=== PATIENT | female | born 1955 | race African-American/Black ===

== ENCOUNTER 2016-11-20 15:46 | Inpatient (IN) | payer MEDICARE, MEDICAID ==
[~2016-11-20] VITALS: Ht 157.5 cm; Wt 110.6 kg
--- NOTE | ~2016-11-20 | DS ---
PATIENT'S NAME: FRANCISCO JAVIER BUTLER [facility] AGE: 61 Y [address] ROOM: [id number] [place], [place] [address] LOCATION: GPCU ADMIT DATE: 11/07/2016 Discharge Summary DISCHARGE DATE: 11/20/2016 FAMILY PHYSICIAN: Physician, Unknown ATTENDING PHYSICIAN: Ivy Timmons PRIMARY DIAGNOSES: 1. Metabolic encephalopathy. 2. Acute kidney injury on chronic kidney disease, stage III. 3. Aggressive behavior disorder. 4. Diabetes type 2. 5. Coronary artery disease, status post CABG, on prior admission. 6. Left lower extremity swelling. 7. Acute hypoxic respiratory failure. 8. Urinary tract infection. 9. Essential hypertension. PRINCIPAL PROCEDURES: Principal procedures done for the patient include placement of a temporary dialysis catheter x2, right renal biopsy by Radiology, and temporary dialysis catheter placement by Dr. Garza. LABORATORY DATA: WBC on admission was 12.1, prior to discharge was 7.9. H and H on admission was 7.6/24.6, H and H were stable throughout the hospital stay, prior to discharge were 7.8/25.6. Platelet on admission was 449, was stable throughout the hospital stay, prior to discharge was 294. Creatinine on admission was 7.1, prior to discharge was back at baseline at 1.1. BUN on admission was 44, which was the highest level obtained, prior to discharge was 16. Potassium on admission was 4.9, highest level obtained was 5.4, prior to discharge was 4.4. Bicarb remained stable throughout the hospital stay at 24. Liver function test: AST was 37 on admission and was stable throughout the hospital stay. ALT was 31 on admission, was also stable throughout the hospital stay. Alkaline phosphatase was 75, was stable throughout the hospital stay as well. Phosphorus was 6.4. Magnesium was 3.1. INR on admission was 2.6, prior to discharge was 1.2. UA; color yellow, leukocytes 500, nitrite negative, wbc full field. CRP was 5.35. Procalcitonin 0.09. Hepatitis B surface antigen negative, nonreactive. Antibody to hepatitis C, nonreactive. Microbiology; urine culture showed Klebsiella pneumoniae greater than 100,000, enterococcus faecalis 10,000 to 15,000 colony-forming unit, lactobacillus greater than 100,000. Blood cultures no growth after 5 days. Repeat urine culture no growth after 2 days. Blood culture remained negative x2 sets. Antinuclear antibody test negative. Repeat urine culture was contaminant. RADIOLOGY: Chest x-ray reported as cardiac silhouette remains enlarged. Perihilar interstitial opacities may represent some interstitial edema versus PATIENT'S NAME: FRANCISCO JAVIER [facility]LER [facility] AGE: 61 Y [address] ROOM: [facility] [place], [place] [address] LOCATION: GPCU ADMIT DATE: 11/07/2016 Discharge Summary DISCHARGE DATE: 11/20/2016 FAMILY PHYSICIAN: Physician, Unknown ATTENDING PHYSICIAN: Ivy Timmons A infiltrate. No discrete focal infiltrate, pleural effusion, or pneumothorax identified. Renal ultrasound, unremarkable bilateral renal ultrasound. Multiple chest x-rays following temporary catheter placement, there has been some interval improvement in perihilar interstitial markings, which may represent resolving interstitial edema versus infiltrate. Right-sided Port-A- Cath device is stable. CT of the head showed no evidence of acute intracranial injury, suspected chronic left maxillary sinus. Repeat chest x- ray showed cardiac silhouette remains enlarged, mildly prominent perihilar interstitial markings are present, this is improved in appearance since the prior study. CT-guided core needle biopsy of the right kidney performed. Three-view x-ray of the left ankle showed soft tissue swelling without apparent fracture. CT of the chest and abdomen without contrast, reported as bilateral pleural effusion, moderate on the left and small on the right, otherwise essentially negative chest except for some minimal streaky scarring; bilateral perinephric edema, this could relate to chronic acute renal failure; no hydronephrosis; otherwise negative abdomen and pelvis. Repeat 3-view x-ray of the ankle showed diffuse soft tissue swelling, normal bony alignment, no fracture seen, no destructive lesion. Chest x-ray showed stable cardiomegaly. Ultrasound of the right cubital swelling, the internal jugular, subclavian, axillary, brachial, radial, and ulnar veins are well, as well as the basilic and cephalic veins have been examined. No evidence of DVT or superficial thrombophlebitis in the right upper extremity. No evidence of mass at the area of palpation, right medial antecubital foci, only normal muscle seen in this region. Duplex scan of the lower extremity showed no evidence of DVT or superficial thrombophlebitis in the left lower extremity, common femoral vein graft visualized. Echocardiogram showed ejection fraction 55% to 60%, the right atrium is moderately dilated, dilated IVC with poor inspiratory collapse consistent with elevated RA pressure, PA pressure of 57.77 mmHg, moderate posterior pericardial effusion. Pathology report is reported as adequate glomeruli present by pre-fixation microscopy, tissue obtained for outside consultation at [facility]. HOSPITAL COURSE: For history of present illness, please take a look at the H and P, which was done by Dr. Luther. The patient was admitted to Progressive Care Unit. She was managed for acute kidney injury on chronic kidney disease also with encephalopathy, which was thought to be metabolic in origin, was thought to be secondary to possibly benzos which the patient was on. The patient did get a Renal consult from the first day of the hospital stay and they recommended to continue with hydration and to see how the kidney would respond. The patient did get a renal ultrasound, which was essentially unremarkable. However, on the first day of her hospital stay, the patient was pretty confused; combative; aggressive at the staff; and at one point she tried to walk out of her room, confused, and still fell on the floor; and also combative and so Julien Perez was called. At this point, she was made calm a PATIENT'S NAME: FRANCISCO JAVIER [facility] AGE: 61 Y [address] ROOM: [id number] [place] [address] LOCATION: GPCU ADMIT DATE: 11/07/2016 Discharge Summary DISCHARGE DATE: 11/20/2016 FAMILY PHYSICIAN: Physician, Unknown ATTENDING PHYSICIAN: Ivy Timmons A little bit with Haldol p.r.n. and she was able to remain calm following this. Given her aggressiveness and the severity of her confusion, she did eventually get hemodialysis done on the first day. On the second day, her mentation was essentially unchanged, still confused, combative, aggressive, refusing treatment, wanting to be discharged; and again while she was in hemodialysis, she pulled out her temporary dialysis catheter, which was placed a day prior and Julien Perez again was called. There was a caution to give further Haldol to calm her down as a QTc was beginning to be prolonged. At this point, the Psychiatric consult was called and they recommended to try some Ativan and also to try some Abilify p.o. However, the patient was too combative, confused, and too aggressive and was not tolerating anything by mouth. Eventually, she did get a low dose of Haldol, which kept her calm, and also got some Versed for her temporary catheter to be replaced. At this point, she continued with her dialysis. However, following the completion of the dialysis and when she returned back to the floor, she continued to be combative, aggressive, and refusing treatment. Despite being in 2-point restraint, was pulling at all lines, trying to pull out leads of her monitor. At this point, it was felt that the patient needed to be sedated better and so she was transferred to the ICU to be started on Precedex drip, so she was maintained in the ICU for 48 hours on Precedex drips. By the second day, she became calm, more oriented, and slowly the Precedex drip was weaned off and she was successfully transferred out of the ICU back to PCU. During this whole time, Renal Team continued to follow up with the patient and she continued to have p.r.n. dialysis and they paid close attention to her kidney function. Eventually, her last dialysis was held on November 12 and following this, she did also get a right renal kidney biopsy done. Also of note is that on admission, she was treated for multi-organism urinary tract infection with klebsiella UTI with Fortaz, which she had for a total of about 5 days. Now, basically her mentation has returned to baseline. She was able to follow command and was accepting treatment that has been offered to her. After her kidney function had returned back to baseline, Renal decided to sign off. She started to ambulate and while in PCU, she did complain of some left ankle pain, for which Dr. Robertson was consulted. After reviewing the patient, he did order 3-view x-ray of the left lower extremity. It did not show any fracture. He did also get a repeat lower extremity duplex scan, which was negative for DVT and he had no concern for a fracture or for an infection, though the patient still did continue to complain of left ankle swelling and also left ankle edema and pain. He recommended for the patient to be on Cam boots when she ambulates and ice and also elevation of the left lower extremity and for left knee knee-high JET hose to be put on as well. Eventually, the patient was restarted back on her Coumadin, was bridged with low dose of subcu heparin. Dr. Zelaya also continued to follow up with the patient given the fact the patient had recently just had a CABG, so he continued to follow up as regarding the sternotomy wound, which was still clean and intact. The patient's mentation had returned to baseline. Her PATIENT'S NAME: FRANCISCO JAVIER [facility] AGE: 61 Y [address] ROOM: [id number] [place], [place] [address] LOCATION: GPCU ADMIT DATE: 11/07/2016 Discharge Summary DISCHARGE DATE: 11/20/2016 FAMILY PHYSICIAN: Physician, Karen ATTENDING PHYSICIAN: Ivy Timmons kidney function as well had returned to baseline. Blood pressure was controlled and eventually given her psychiatric disorder, she did have to have some clearance before she was eventually accepted into TCU. She was also seen by the psychiatrist as well given the combative behavior and they recommended to avoid all benzos. They stopped the Abilify and started the patient on some Risperdal and to also avoid the Viibryd. Eventually, on the day of discharge, the patient was in stable clinical condition, her mentation was at baseline, kidney function was stable, and she was discharged to TCU. DISCHARGE INSTRUCTIONS: Fluid restriction of about 2 L per day. Ice plus elevation of the left lower extremity. Left knee high JET hose. Cam boots when ambulating. MEDICATIONS ON DISCHARGE: 1. Amiodarone 200 mg p.o. twice daily. 2. Norvasc 10 mg p.o. daily. 3. Aspirin 81 mg p.o. daily. 4. Lipitor 10 mg p.o. daily. 5. Wellbutrin XL 150 mg p.o. daily. 6. Coreg 25 mg p.o. twice daily. 7. Colace 100 mg p.o. twice daily. 8. Pepcid 20 mg p.o. twice daily. 9. NovoLog FlexPen 6 units subcutaneous 3 times daily with meals. 10. Levemir 20 units subcu daily. 11. Labetalol, new medication, 100 mg p.o. twice daily. 12. MiraLax 17 grams p.o. daily. 13. Risperdal 1 mg p.o. twice daily. 14. Coumadin 7.5 mg p.o. daily. 15. Dulcolax 10 mg rectally daily p.r.n. 16. Dextrose 25 mL 1 amp for hypoglycemia. 17. Glucagon. 18. Humibid 600 mg p.o. twice daily p.r.n. 19. Milk of magnesia 400 mg p.o. daily p.r.n. 20. Phenergan 25 mg p.o. q.4 hours p.r.n. 21. Albuterol nebs every 6 hours p.r.n. 22. Zanaflex 4 mg p.o. twice daily p.r.n. 23. Regarding restarting of Aldactone and Benicar, I did discuss with Alesha Mireles NP who will touch base with Dr. Timmons and Dr. Zelaya. Discharge time on this patient is approximately 40 minutes, which included coordinating the patient's discharge plan with skin care specialist. PATIENT'S NAME: FRANCISCO JAVIER [facility] AGE: 61 Y [address] ROOM: [place] [address] LOCATION: [facility] ADMIT DATE: 11/07/2016 Discharge Summary DISCHARGE DATE: 11/20/2016 FAMILY PHYSICIAN: Physician, Unknown ATTENDING PHYSICIAN: Ivy Timmons MD SEKOU ANDERSON/jonah /[id number] d: 11/21/16 0151 t: 12/10/16 1300, DISCHARGE SUMMARY
--- NOTE | ~2016-11-20 | DS ---
PATIENT'S NAME: FRANCISCO JAVIER BUTLER [facility] AGE: 61 Y [address] ROOM: [address] [place] [address] LOCATION: [facility] ADMIT DATE: 11/20/2016 Discharge Summary DISCHARGE DATE: FAMILY PHYSICIAN: Physician, Unknown ATTENDING PHYSICIAN: Shanna Martinez ANTICIPATED DATE OF DISCHARGE: 12/09/2016. PRIMARY DIAGNOSES: At this hospitalization are, 1. Status post coronary artery bypass graft. 2. Status post acute kidney injury requiring dialysis, now resolved. 3. Insulin-dependent diabetes. 4. Recurrent deep vein thromboses, on long-term anticoagulation. 5. Coronary artery disease. 6. Hypertension. 7. Aggressive behavior disorder. 8. Questionable C8 neuropathy versus conversion disorder. 9. Deconditioning. 10. Clostridium difficile colitis. SUMMARY OF HOSPITALIZATION: This is a 61-year-old female with multiple medical problems as above, who was admitted to the transitional care unit for recuperation subsequent to complex hospitalization. During that hospitalization, the patient has undergone a coronary artery bypass graft with subsequent metabolic encephalopathy as well as acute kidney injury requiring dialysis. All of these resolved, and the patient was being treated on the transitional care unit. The patient received physical therapy and gradually improved. She was able to ambulate with minimal assistance. She was continued on Coumadin while on the transitional care unit. She did develop an episode of C. diff, which was treated with oral vancomycin and at this point has resolved. The patient did have an episode where she developed a complete paralysis of left upper extremity in the course of the night. She was evaluated and it was felt that this was not consistent with a CVA. CAT scan of her head was negative. She was seen by Neurology who felt that this may indeed be a C8 brachial plexopathy related to recent CABG. However, the patient does have quite an extensive psychiatric history, so the presentation could have been conversion disorder. This weakness/paralysis did resolve completely. The patient did have considerable opioid requirement, and we had to explain to her that she is in danger for developing opioid dependence. At this point, she is still receiving regular doses of oral Dilaudid 2 mg approximately 3 to 4 times a day. In order to help her taper this opioid dose, I will decrease her PATIENT'S NAME: FRANCISCO JAVIER BUTLER [facility] AGE: 61 Y [address] ROOM: [address] [address] LOCATION: [facility] ADMIT DATE: 11/20/2016 Discharge Summary DISCHARGE DATE: FAMILY PHYSICIAN: Physician, Unknown ATTENDING PHYSICIAN: Shanna Martinez discharge home regimen to 1 mg every 4 hours as needed. We will defer to the PMD to further titrate her off opioids. The patient is advised to follow up with her primary care provider, Dr. Norris in [place]. She is also to follow up with Dr. Roberts, her primary cart driver in 1 to 2 weeks. DISCHARGE MEDICATIONS: 1. Amiodarone 200 mg p.o. twice a day. 2. Amlodipine 10 mg daily. 3. Aspirin 81 mg daily. 4. Atorvastatin 10 mg daily. 5. Bupropion 150 mg XL daily. 6. Carvedilol 25 mg p.o. b.i.d. 7. Chlorthalidone 12.5 mg daily. 8. Famotidine 20 mg every day. 9. NovoLog 6 units before meals. 10. Detemir 20 units at bedtime. 11. Labetalol 100 mg b.i.d. 12. Lisinopril 2.5 mg daily. 13. Risperdal 1 mg p.o. b.i.d. 14. Florastor 1 tablet p.o. b.i.d. 15. Warfarin to be dosed by home health. 16. Dulcolax suppository 10 mg every day as needed. 17. Dilaudid 1 mg every 4 hours as needed, not to exceed 4 pills a day. 18. Promethazine 25 mg every 4 hours as needed. 19. Zanaflex 4 mg twice daily as needed. 20. Albuterol DuoNeb 2.5 mg every 6 hours as needed. The patient is being set up with home health. Time dedicated to this patient's encounter is 45 minutes. MD NARCISO KENNEY/jonah /[id number] CC: Melissa Roberts MD PATIENT'S NAME: FRANCISCO JAVIER [facility]LER [facility] AGE: 61 Y [address] ROOM: [address] [address] LOCATION: [facility] ADMIT DATE: 11/20/2016 Discharge Summary DISCHARGE DATE: FAMILY PHYSICIAN: Physician, Unknown ATTENDING PHYSICIAN: Shanna Martinez MD d: 12/09/16 0448 t: 12/14/16 1234, DISCHARGE SUMMARY
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
--- NOTE | ~2016-11-20 | DS ---
PATIENT'S NAME: FRANCISCO JAVIER [facility] AGE: 61 Y [address] ROOM: [id number] [place], [place] [address] LOCATION: GPCU ADMIT DATE: 11/07/2016 Discharge Summary DISCHARGE DATE: 11/20/2016 FAMILY PHYSICIAN: Physician, Unknown ATTENDING PHYSICIAN: Ivy Timmons PRIMARY DIAGNOSES: 1. Metabolic encephalopathy. 2. Acute kidney injury on chronic kidney disease, stage III. 3. Aggressive behavior disorder. 4. Diabetes type 2. 5. Coronary artery disease, status post CABG, on prior admission. 6. Left lower extremity swelling. 7. Acute hypoxic respiratory failure. 8. Urinary tract infection. 9. Essential hypertension. PRINCIPAL PROCEDURES: Principal procedures done for the patient include placement of a temporary dialysis catheter x2, right renal biopsy by Radiology, and temporary dialysis catheter placement by Dr. Garza. LABORATORY DATA: WBC on admission was 12.1, prior to discharge was 7.9. H and H on admission was 7.6/24.6, H and H were stable throughout the hospital stay, prior to discharge were 7.8/25.6. Platelet on admission was 449, was stable throughout the hospital stay, prior to discharge was 294. Creatinine on admission was 7.1, prior to discharge was back at baseline at 1.1. BUN on admission was 44, which was the highest level obtained, prior to discharge was 16. Potassium on admission was 4.9, highest level obtained was 5.4, prior to discharge was 4.4. Bicarb remained stable throughout the hospital stay at 24. Liver function test: AST was 37 on admission and was stable throughout the hospital stay. ALT was 31 on admission, was also stable throughout the hospital stay. Alkaline phosphatase was 75, was stable throughout the hospital stay as well. Phosphorus was 6.4. Magnesium was 3.1. INR on admission was 2.6, prior to discharge was 1.2. UA; color yellow, leukocytes 500, nitrite negative, wbc full field. CRP was 5.35. Procalcitonin 0.09. Hepatitis B surface antigen negative, nonreactive. Antibody to hepatitis C, nonreactive. Microbiology; urine culture showed Klebsiella pneumoniae greater than 100,000, enterococcus faecalis 10,000 to 15,000 colony-forming unit, lactobacillus greater than 100,000. Blood cultures no growth after 5 days. Repeat urine culture no growth after 2 days. Blood culture remained negative x2 sets. Antinuclear antibody test negative. Repeat urine culture was contaminant. RADIOLOGY: Chest x-ray reported as cardiac silhouette remains enlarged. Perihilar interstitial opacities may represent some interstitial edema versus PATIENT'S NAME: FRANCISCO JAVIER [facility] AGE: 61 Y [address] ROOM: [facility] [place] [place], [place] [address] LOCATION: GPCU ADMIT DATE: 11/07/2016 Discharge Summary DISCHARGE DATE: 11/20/2016 FAMILY PHYSICIAN: Physician, Unknown ATTENDING PHYSICIAN: Ivy Timmons A infiltrate. No discrete focal infiltrate, pleural effusion, or pneumothorax identified. Renal ultrasound, unremarkable bilateral renal ultrasound. Multiple chest x-rays following temporary catheter placement, there has been some interval improvement in perihilar interstitial markings, which may represent resolving interstitial edema versus infiltrate. Right-sided Port-A- Cath device is stable. CT of the head showed no evidence of acute intracranial injury, suspected chronic left maxillary sinus. Repeat chest x- ray showed cardiac silhouette remains enlarged, mildly prominent perihilar interstitial markings are present, this is improved in appearance since the prior study. CT-guided core needle biopsy of the right kidney performed. Three-view x-ray of the left ankle showed soft tissue swelling without apparent fracture. CT of the chest and abdomen without contrast, reported as bilateral pleural effusion, moderate on the left and small on the right, otherwise essentially negative chest except for some minimal streaky scarring; bilateral perinephric edema, this could relate to chronic acute renal failure; no hydronephrosis; otherwise negative abdomen and pelvis. Repeat 3-view x-ray of the ankle showed diffuse soft tissue swelling, normal bony alignment, no fracture seen, no destructive lesion. Chest x-ray showed stable cardiomegaly. Ultrasound of the right cubital swelling, the internal jugular, subclavian, axillary, brachial, radial, and ulnar veins are well, as well as the basilic and cephalic veins have been examined. No evidence of DVT or superficial thrombophlebitis in the right upper extremity. No evidence of mass at the area of palpation, right medial antecubital foci, only normal muscle seen in this region. Duplex scan of the lower extremity showed no evidence of DVT or superficial thrombophlebitis in the left lower extremity, common femoral vein graft visualized. Echocardiogram showed ejection fraction 55% to 60%, the right atrium is moderately dilated, dilated IVC with poor inspiratory collapse consistent with elevated RA pressure, PA pressure of 57.77 mmHg, moderate posterior pericardial effusion. Pathology report is reported as adequate glomeruli present by pre-fixation microscopy, tissue obtained for outside consultation at [facility]. HOSPITAL COURSE: For history of present illness, please take a look at the H and P, which was done by Dr. Luther. The patient was admitted to Progressive Care Unit. She was managed for acute kidney injury on chronic kidney disease also with encephalopathy, which was thought to be metabolic in origin, was thought to be secondary to possibly benzos which the patient was on. The patient did get a Renal consult from the first day of the hospital stay and they recommended to continue with hydration and to see how the kidney would respond. The patient did get a renal ultrasound, which was essentially unremarkable. However, on the first day of her hospital stay, the patient was pretty confused; combative; aggressive at the staff; and at one point she tried to walk out of her room, confused, and still fell on the floor; and also combative and so Julien Perez was called. At this point, she was made calm a PATIENT'S NAME: FRANCISCO JAVIER [facility] AGE: 61 Y [address] ROOM: [id number] [place] [address] LOCATION: GPCU ADMIT DATE: 11/07/2016 Discharge Summary DISCHARGE DATE: 11/20/2016 FAMILY PHYSICIAN: Physician, Unknown ATTENDING PHYSICIAN: Ivy Timmons A little bit with Haldol p.r.n. and she was able to remain calm following this. Given her aggressiveness and the severity of her confusion, she did eventually get hemodialysis done on the first day. On the second day, her mentation was essentially unchanged, still confused, combative, aggressive, refusing treatment, wanting to be discharged; and again while she was in hemodialysis, she pulled out her temporary dialysis catheter, which was placed a day prior and Julien Perez again was called. There was a caution to give further Haldol to calm her down as a QTc was beginning to be prolonged. At this point, the Psychiatric consult was called and they recommended to try some Ativan and also to try some Abilify p.o. However, the patient was too combative, confused, and too aggressive and was not tolerating anything by mouth. Eventually, she did get a low dose of Haldol, which kept her calm, and also got some Versed for her temporary catheter to be replaced. At this point, she continued with her dialysis. However, following the completion of the dialysis and when she returned back to the floor, she continued to be combative, aggressive, and refusing treatment. Despite being in 2-point restraint, was pulling at all lines, trying to pull out leads of her monitor. At this point, it was felt that the patient needed to be sedated better and so she was transferred to the ICU to be started on Precedex drip, so she was maintained in the ICU for 48 hours on Precedex drips. By the second day, she became calm, more oriented, and slowly the Precedex drip was weaned off and she was successfully transferred out of the ICU back to PCU. During this whole time, Renal Team continued to follow up with the patient and she continued to have p.r.n. dialysis and they paid close attention to her kidney function. Eventually, her last dialysis was held on November 12 and following this, she did also get a right renal kidney biopsy done. Also of note is that on admission, she was treated for multi-organism urinary tract infection with klebsiella UTI with Fortaz, which she had for a total of about 5 days. Now, basically her mentation has returned to baseline. She was able to follow command and was accepting treatment that has been offered to her. After her kidney function had returned back to baseline, Renal decided to sign off. She started to ambulate and while in PCU, she did complain of some left ankle pain, for which Dr. Robertson was consulted. After reviewing the patient, he did order 3-view x-ray of the left lower extremity. It did not show any fracture. He did also get a repeat lower extremity duplex scan, which was negative for DVT and he had no concern for a fracture or for an infection, though the patient still did continue to complain of left ankle swelling and also left ankle edema and pain. He recommended for the patient to be on Cam boots when she ambulates and ice and also elevation of the left lower extremity and for left knee knee-high JET hose to be put on as well. Eventually, the patient was restarted back on her Coumadin, was bridged with low dose of subcu heparin. Dr. Zelaya also continued to follow up with the patient given the fact the patient had recently just had a CABG, so he continued to follow up as regarding the sternotomy wound, which was still clean and intact. The patient's mentation had returned to baseline. Her PATIENT'S NAME: FRANCISCO JAVIER [facility] AGE: 61 Y [address] ROOM: [id number] [place], [place] [address] LOCATION: GPCU ADMIT DATE: 11/07/2016 Discharge Summary DISCHARGE DATE: 11/20/2016 FAMILY PHYSICIAN: Physician, Karen ATTENDING PHYSICIAN: Ivy Timmons kidney function as well had returned to baseline. Blood pressure was controlled and eventually given her psychiatric disorder, she did have to have some clearance before she was eventually accepted into TCU. She was also seen by the psychiatrist as well given the combative behavior and they recommended to avoid all benzos. They stopped the Abilify and started the patient on some Risperdal and to also avoid the Viibryd. Eventually, on the day of discharge, the patient was in stable clinical condition, her mentation was at baseline, kidney function was stable, and she was discharged to TCU. DISCHARGE INSTRUCTIONS: Fluid restriction of about 2 L per day. Ice plus elevation of the left lower extremity. Left knee high JET hose. Cam boots when ambulating. MEDICATIONS ON DISCHARGE: 1. Amiodarone 200 mg p.o. twice daily. 2. Norvasc 10 mg p.o. daily. 3. Aspirin 81 mg p.o. daily. 4. Lipitor 10 mg p.o. daily. 5. Wellbutrin XL 150 mg p.o. daily. 6. Coreg 25 mg p.o. twice daily. 7. Colace 100 mg p.o. twice daily. 8. Pepcid 20 mg p.o. twice daily. 9. NovoLog FlexPen 6 units subcutaneous 3 times daily with meals. 10. Levemir 20 units subcu daily. 11. Labetalol, new medication, 100 mg p.o. twice daily. 12. MiraLax 17 grams p.o. daily. 13. Risperdal 1 mg p.o. twice daily. 14. Coumadin 7.5 mg p.o. daily. 15. Dulcolax 10 mg rectally daily p.r.n. 16. Dextrose 25 mL 1 amp for hypoglycemia. 17. Glucagon. 18. Humibid 600 mg p.o. twice daily p.r.n. 19. Milk of magnesia 400 mg p.o. daily p.r.n. 20. Phenergan 25 mg p.o. q.4 hours p.r.n. 21. Albuterol nebs every 6 hours p.r.n. 22. Zanaflex 4 mg p.o. twice daily p.r.n. 23. Regarding restarting of Aldactone and Benicar, I did discuss with Alesha Mireles NP who will touch base with Dr. Timmons and Dr. Zelaya. Discharge time on this patient is approximately 40 minutes, which included coordinating the patient's discharge plan with livestock caretaker. PATIENT'S NAME: FRANCISCO JAVIER [facility] AGE: 61 Y [address] ROOM: [place] [address] [facility]: 11/07/2016 Discharge Summary DISCHARGE DATE: 11/20/2016 FAMILY PHYSICIAN: , Unknown ATTENDING PHYSICIAN: Ivy Timmons MD SEKOU ANDERSON/jonah /[id number] d: 11/21/16 0151 t: 12/10/16 1302, DISCHARGE SUMMARY
[~2016-11-20 15:46] MED LIST: ALBUTEROL2.5 MG/0.5 INH; ALBUTEROL2.5 MG/31 INH; ALDACTONE25 MG PO; APRESOLINE25 MG PO; APRESOLINE50 MG PO; ASCORBIC ACID250 MG PO; ASCORBIC ACID500 MG PO; ASPIRIN EC81 MG PO; ATARAX25 MG PO; ATIVAN 1 MG1 MG PO; BACTROBAN 2% OI22 GM TOP; BENICAR40 MG PO; BENZONATATE100 MG PO; CALAN SR120 MG PO; CARDIZEM120 M1 PO; CATAPRES0.1 MG PO; CELEXA20 MG PO; CELEXA40 MG PO; COLACE100 MG PO; CORDARONE,PACE200 MG PO; COREG25 MG PO; COUMADIN ** IA5 MG PO; DEMADEX20 MG PO; DESYREL150 MG PO; DESYREL50 MG PO; DULCOLAX10 MG R; FEOSOL325 MG PO; GLUCAGEN1 M1 SUB-Q; HUMIBID LA (MU600 MG PO; K-TAB ER20 MEQ PO; KEFLEX500 MG PO; KLONOPIN0.5 MG PO; LAMICTAL25 MG PO; LASIX20 M1 PO; LATUDA20 MG PO; LEVEMIR FL100 UNIT/1 SUB-Q; LEXAPRO10 MG PO; LIPITOR80 MG PO; MELATONIN3 MG PO; MILK OF MA400 MG/5 M PO; MINIPRESS1 MG PO; MINIPRESS2 MG PO; MIRALAX17 GM PO; MORPHINE 15MG I15 MG PO; MS CONTIN30 MG PO; NITROSTAT0.4 MG SL; NORVASC10 MG; NORVASC10 MG PO; NOVOLOG FL100 UNIT/1 SUB-Q; NYSTATIN1 EAC1 TOP; PEPCID40 MG PO; PHENERGAN25 M1 PO; PRAZOSIN HCL1 MG PO; PREMARIN0.625 MG PO; PROAIR HFA8.5 GM INH; PROCARDIA XL30 MG PO; TESSALON PERLE100 MG PO; TYLENOL325 MG PO; VANCOCIN HCL125 MG PO; VIIBRYD40 MG PO; VITAMIN D33000 UNIT PO; WELLBUTRIN XL150 M1 PO; ZANAFLEX2 MG PO; ZANAFLEX4 MG PO; ZYPREXA10 MG PO
--- NOTE | 2016-11-20 17:25 | NUR ---
D: Nursing ADMISSION SUMMARY I: Nursing interventions provided to support the patient's individual plan of care R: MOBILITY-- 1 ASSIST WALKER/GB STERNAL PRECAUTIONS AND CHEST HUGGER, CAM BOOT TO L) FOOT WITH ALL AMBULATION WHEN ARRIVES. WAS ORDERED. NUTRITION-- DIABETIC DIET, LEVEMIR AND 6 UNITS NOVOLOG WITH MEALS SKIN/INCISIONS/WOUNDS-- STERNAL INCISION SCABBED AND HEALED, UPPER ABD 3 CHEST TUBE SCABS SELF CARES-- BOWEL/BLADDER-- CONTINENT B/B, USES CALL LIGHT APPROPRIATELY RESPIRATORY-- RA- KEEP SATS ABOVE 90%, 2 LITERS AT NIGHT PAIN-- TAKES PO MORPHINE FOR STERNAL PAIN PSYCHOSOCIAL-- HX SUICIDE ATTEMPT DEPRESSION, PSYCH MEDS COGNITION-- A/0 X 3 SPECIAL NEEDS-- JET HOSE TO L)LEG ONLY BLEEDING-- COUMADIN WITH HEPARIN SENSORY IMPAIRMENTS/DENTAL NEEDS: GLASSES, OWN TEETH TEACHING NEEDS-- STERNAL PRECAUTIONS INFECTION CONCERNS: RISK FOR ELOPEMENT: NEED FOR BED/MOVEMENT ALARM: NO DISMISSAL PLANS: HOME TO [place] Other: P: Current plan of care reviewed and updated JALYN LAINEZ 11/20/16
--- NOTE | 2016-11-21 04:21 | NUR ---
Significant Event: Patient alert and oriented x3. Up with one assist. Needs reinforcement on sternal precautions. Repositions self in bed. Vital signs stable. currently on 2liters oxygen at night otherwise room air. Right chest port with good blood return. Pt very tearful regarding frustration with "provider communication" and not being able to take IV morphine. Did notify with no order changes. Took scheduled ms contin and has been sleeping all shift. Refused foot pumps Follow up:
[2016-11-21 05:09] LABS: INR - (THERAPEUTIC) 1.3 (0.9-1.1); PROTIME 14.3 SECONDS (9.6-11.1)
--- NOTE | 2016-11-21 11:30 | NUR ---
TCU-Social Assessment & History Marital status: single black female Siblings: 2 sisters living and they reside in [place]- names are Isha Grace and Jose A Burleson. Patient states she has 2 brothers 2 other sisters who have . Advanced Directive: orders upon admission for full code status. POLST form on chart indicating DNR. Nurse aware of this. Patient states Dolores Armando of [place] is her POA, but no paperwork on file. Dolores's phone # is [phone]. SW contacted Admissions to update Face Sheet. Reason for Admission: patient admitted to TCU for continued OT/PT/RT/WOC, sternal precautions until 17, daily PT/INR labwork, fluid restriction post CABG x3. Nursing reports patient went home from initial surgery and then returned to [facility]. Dx upon admission to TCU is metabolic encephalopathy, LAD, MYRA, CKD, aggressive behavior,DM 2, hx of DVT. Financial Resources: patient has medicare and medicaid ([employer]) She is disabled. Prior Living Situation: patient lives alone in [place], [place]. She was independent with ADL's prior to her open heart surgery. Recognizes impact of health condition on lifestyle: yes, acknowledges information re: sternal precautions and fluid restriction while on TCU. Occupation/Vocation/Education: patient enjoys singing and playing drums and walters guitar. She has a group of 3 ladies who come to her home and they play and sing. She also sings in sikhism and for funerals, etc.... Behavior/Emotional needs: pleasant and cooperative during visit. Makes her wants and needs known. Legal concerns: n/a Spiritual: [employer]. Enjoys singing in sikhism and enjoys adventism music. Discharge goal: patients goal is to return to her home alone in [place], [place]. may benefit from [facility] services. Activities: Patient will be encouraged to participate in "ala carte" activities offered during her short stay on TCU. She has her guitar at bedside to play. patient also aware TCU has a keyboard and her friends, when they visit, can play piano and she can sing for us. A current calendar of events is posted at bedside.
--- NOTE | 2016-11-21 16:46 | NUR ---
Significant Event: A/0 X 3, 1 ASSIST STANDBY IN ROOM, PT/OT SERVICES, AC/HS ACCUCHECKS, NEW ORDERS *DC MORPHINE, GIVE IV DILAUDID 0.5ML TID, CHANGE LEVEMIR TO HS GIVE ONLY BS>201, GIVE 6 UNITS NOVOLOG AT MEALS IF BS> 201, LOOSE COUGH WITH SM SPUTUM- CALL RESPIRATORY IF SHE NEEDS NEB TX, SHOWER TODAY, HAS NEW CAM BOOT TO WEAR TO LLE WHILE AMBULATING AND PRN, CHEST HUGGER ON AT ALL TIMES- WASHED BRA TODAY, * BE AWARE OF HIPPA CODE WORD/ CONFIDENTIALITY PATIENT* ALL INCISIONS OPEN TO AIR, R)CHEST FLUSHED-PORT GOOD BLOOD RETURN. Follow up:
--- NOTE | 2016-11-22 01:56 | NUR ---
Significant Event: Patient is alert and oriented. Transfers with one assist. Accuchecks AC/HS. Sternal precations continue. Right chest port accessed and flushes without difficulty, good blood return. Refuses foot pumps. PRN dilaudid given at 1930 per patient request. Follow up:
[2016-11-22 05:41] LABS: INR - (THERAPEUTIC) 1.3 (0.9-1.1); PROTIME 14.4 SECONDS (9.6-11.1)
--- NOTE | 2016-11-22 15:23 | NUR ---
Significant Event: AMBULATES WITH SBA. FOLLOWS STERNAL PRECAUTIONS. REQUESTED IV DILAUDID X1 AND A DULCOLAX SUPP. LARGE BM REPORTED. PORT FLUSHES EASILY WITH GOOD BLOOD RETURN. CONTINUES ON 2000ML FLUID RESTRICTION. PLEASANT AND COOPERATIVE WITH CARES. Follow up:
--- NOTE | 2016-11-23 00:35 | NUR ---
Significant Event: Patient is alert and oriented. Answers questions appropriately. Transfers easily with one assist with gait belt and walker. Needs encouragement to use sternal precautions. Repositions self in bed. RIght chest port flushes without difficulty and has good blood return. Refuses foot pumps. Follow up:
[2016-11-23 05:16] LABS: INR - (THERAPEUTIC) 1.7 (0.9-1.1); PROTIME 18.5 SECONDS (9.6-11.1)
--- NOTE | 2016-11-23 17:00 | NUR ---
Significant Event: AMBULATES WITH 1 SBA USING GAIT BELT AND WALKER. RECEIVED PRN DILAUDID X2 THIS SHIFT AND ZANAFLEX X1 THIS SHIFT FOR STERNAL PAIN. PORT CAPS CHANGED AND PORT FLUSHES EASILY WITH GOOD BLOOD RETUN. NO INSULIN GIVEN AT 0700 OR NOON. PLEASANT AND COOPERATIVE WITH CARES. Follow up:
--- NOTE | 2016-11-24 01:48 | NUR ---
Significant Event: Patient is alert and oriented. Answers questions apprpriately. Pleasant and cooperative with cares. Transfers with one standby assist. refuses gait belt. Repositions self in bed. Right chest port flushes without difficulty has good blood return. Refuses with pumps. Follow up:
[2016-11-24 06:33] LABS: INR - (THERAPEUTIC) 1.9 (0.9-1.1)
--- NOTE | 2016-11-24 14:23 | NUR ---
Significant Event: Patient alert and oriented. Up witn 1 assist. No walker. Sternal precautions. Heart hugger. [place] boot on to left leg when up. Port to right chest. Fluid restriction. Accuchecks with s/s insulin if blood sugar is above 201. Hazardous medications. Restarted coumadin today. Can discontinue SQ Heparin when INR is 2.0. INR is 1.9 today. Follow up:
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
[2016-11-25 05:00] LABS: INR - (THERAPEUTIC) 1.9 (0.9-1.1); PROTIME 20.7 SECONDS (9.6-11.1)
--- NOTE | 2016-11-25 15:45 | NUR ---
supportive visit with patient and OT. patient has sternal precuations through 12-11-16. OT/PT are estimating patient will be able to go home from a therapy [facility] on 12-05-16. patient states she has groceries delivered, identifies friends and neighbors to help with laundry and transportation. patient baked cookies today so states she can do her own cooking. if medically ok to d/c on 12-05-16, patient states she could manage at home with [facility] services.
--- NOTE | 2016-11-25 18:31 | NUR ---
A&O. HTN 150'S VSS. ACHS NO COVERAGE. SBA. INCISION INTACT. C/O STERNAL PAIN. IV DILAUDID CHANGED TO PO. PORT TO R) CHEST DOUBLE LUMEN TOP DOES NOT FLUSH. HEART HUGGER ON. FLUID RESTRICTION 2000ML. BOOT TO L LEG. XANAFLEX AT 1210
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
[2016-11-26 06:18] LABS: ANION GAP 11.1 (10.0-19.0); CALCIUM 8.5 mg/dL (8.5-10.5); POTASSIUM 4.1 mMol/L (3.7-5.1)
[2016-11-26 06:31] LABS: PROTIME 22.6 SECONDS (9.6-11.1)
--- NOTE | 2016-11-26 16:32 | NUR ---
Significant Event: Follow up: UP to ambulate to toilet several times today, standby assist only. Left arm feeling better today,states still has some pain but good hand grasp. Vicky Alberto APRN contacted regarding consult for neurology , she may come tomorrow instead of today. given dilaudid q 4 hours today for sternal pain. Out to a hair cut today. patient in pleasent and cooperative.
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
--- NOTE | 2016-11-27 19:29 | NUR ---
Significant Event: PATIENT IS ALERT/ORIENTED X 3. MOVES 1 ASSIST WITH STERNAL PRECAUTIONS. TAKES DILAUDID FOR PAIN LAST TAKEN AROUND 1300. CAM BOOT TO LEFT LEG WHEN UP AND AMBULATING. ACCUCHECKS ACHS, NO INSULIN GIVEN TODAY ACCUCHECKS NOT OVER 201. PORT NEEDLE/DRESSING CHANGED TODAY, FLUSHES WELL, CAPS ALSO CHANGED. O2 AT NIGHT. 2000ML FLUID RESTRICTION WHICH PATIENT DOES PRETTY WELL AT. STARTED CHLORTHALIDONE TODAY FOR EDEMA, WATCH FOR ANY NEW CHANGES. Follow up:
--- NOTE | 2016-11-28 01:20 | NUR ---
Significant Event:PT AAOX3.PLEASANT WTIH ALL STAFF AND CARES. WALKS WITH SUPERVISION. HEART HUGGER IN PLACE AT ALL TIMES UNTIL 12/11/16.SURGICAL AREAS TO STERNUM AND ABDOMEN SCABBED AND HEALING WELL WITH NO S/S OF INFECTION. COMPLAINS OF PAIN TO STERNUM AND RIGHT SHOULDER AREA. PRN DILAUDID 2MG GIVEN NEEDED. CAM BOOT IN [place]CE WITH ALL TRANSFERS. HYPERTENSIVE AT HS. WEARS 2L NC AT HS. PORT TO RIGHT CHEST FLUSHES/ASPIRATES WITH NO COMPLICAITON NOTED. USES CALL LIGHT APPROP. Follow up:
[2016-11-28 05:38] LABS: INR - (THERAPEUTIC) 2.2 (0.9-1.1); PROTIME 24.3 SECONDS (9.6-11.1)
--- NOTE | 2016-11-28 16:12 | NUR ---
Significant Event: Follow up: Patient reports passing four loose stools this am, new order to get sample for c dif, patient has not passed any more stool since this am. given phenergan this afternoon for nausea. patient ate soup for lunch today. Given dilauid q 4 hours today for sternal pain. up with standby assist to toilet.
--- NOTE | 2016-11-29 02:03 | NUR ---
Significant Event: Patient is alert and oriented. Pleasant and cooperative with cares. transfers and walks with stand by assist. Heat hugger in place at all times until 12/11/16. Surgical areas healing well. NO PRN medications given this shift. Wears 2L of O2 at HS. Cam boot to left foot in place for all transfers. Port to right chest Intact and flushes with ease good blood return. Follow up:
[2016-11-29 05:57] LABS: PROTIME 21.8 SECONDS (9.6-11.1)
--- NOTE | 2016-11-29 15:26 | NUR ---
Significant Event: Patient alert and oriented. Up with 1 assist. Wears walking boot to left leg when up. Port to right chest intact. Sternal precautions with heart hugger. Accuchecks with her own scale. Taking Dilaudid for pain. Stool for c-diff was positive. Contact isolation initiated and started on oral Vancomycin for 10 days. Follow up:
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
[2016-11-30 05:58] LABS: INR - (THERAPEUTIC) 2.2 (0.9-1.1); PROTIME 24.3 SECONDS (9.6-11.1)
[2016-11-30 10:20] LABS: CPK 52 IU/L (21-215)
--- NOTE | 2016-11-30 17:49 | NUR ---
Significant Event: Pt a/o x 3, cooperative with cares, appears subdued. at 0825, pt c/o chest and l) arm pain rated 9/10 and stabbing; states it had been going on for about 45 minutes. Reinforced to pt to always call staff when having chest pain; she voiced understanding. V/S stable, afebrile, o2 sat 94%, no sob. C/o nausea; did eat 100% of breakfast (but stated she almost threw up twice). Called hospitalist; obtained orders for EKG and cardiac enzymes. rechecked v/s at 1038/ all wnl. Enzymes negative. EKG seen by . No new orders at this time; pt states MD told her that she will continue to have a lot of musculoskeletal pain that can be treated with pain meds and that she needs to continue her therapies. Gave prn phenergan at 1152 (ate 100% lunch), dilaudid at 122 and 1632 (at this time pt c/o stabbing chest pain rated 8/10) and zanaflex at 1355 all with some relief noted. Accuchecks 107, 128 and 182, no insulin coverage required. Gave prn dilaudid at Follow up:
--- NOTE | 2016-12-01 04:20 | NUR ---
Significant Event:A/O. 1 ASSIST. ISO FOR C-DIFF. ORAL VANCO GIVEN. HEART HUGGER ON. ZANAFLAX AT HS. ACHS ACCUCHECKS. FLUID RESTRICION 1038. WANTS THE LACTOSE AND DILUADID ALLERGIES REMOVED FROM CHART. Follow up:
[2016-12-01 06:21] LABS: INR - (THERAPEUTIC) 2.2 (0.9-1.1); PROTIME 24.6 SECONDS (9.6-11.1)
--- NOTE | 2016-12-01 12:46 | NUR ---
Student nurse provided patient cares from 0600 to 1230. Jennifer Corral RN, [facility] Instructor
--- NOTE | 2016-12-01 16:25 | NUR ---
Significant Event: A/0 X 3, 1 ASSIST IN ROOM, CDIFF ISOLATION, PORT ACCESSED TO R)CHEST FLUSHES WELL GOOD BLOOD RETURN, PO DILAUDID FOR PAIN, CAM BOOT TO L)LOWER EXTREMETY, SHOWER TODAY, PT/OT SERVICES. 2000ML FLUID RESTRICTION. Follow up:
--- NOTE | 2016-12-01 17:08 | NUR ---
supportive visit with patient. She would like [facility] out of [place] upon d/c. Patient in c-diff isolation at this time. patient states a friend from [place] will be coming next week to stay with here for a couple of weeks. patient in agreement with d/c plans for Thursday12-05-16 with [facility], if medically ok to d/c at that time.
[2016-12-02 03:53] LABS: ALBUMIN 2.9 gm/dL (3.5-5.0); ANION GAP 12.3 (10.0-19.0); CALCIUM 7.9 mg/dL (8.5-10.5); CREATININE 1.2 mg/dL (0.5-1.1); PHOSPHORUS 3.6 mg/dL (2.5-4.9); POTASSIUM 4.3 mMol/L (3.7-5.1)
--- NOTE | 2016-12-02 05:06 | NUR ---
Significant Event: A/Ox3. Ambulates SBA to bathroom and wears heart hugger. Contact isolation for C.diff. Requests Dilaudid approximately q4h. Nurse draw this am through chest port. ACHS accuchecks. Requested Phenergan for nausea this am x1. VSS. Calm and cooperative with cares. Follow up:
--- NOTE | 2016-12-02 13:45 | NUR ---
Significant Event: Alert/oriented. VSS. SBA with hugger on today. Port intact. Accuchecks ACHS. Continues on fluid restriction. C/o nausea and diarrhea this shift, c. diff positive. Takes phenergen this am with some relief noted. Kees am pills around 11 with no emesis. Follow up:
--- NOTE | 2016-12-03 01:59 | NUR ---
Significant Event: Patient is alert and oriented. Ambulates with stand by assist wears heat hugger. Contact isolation continues for C-diff. Accuchecks AC/HS. Pleasant and cooperative with cares. Follow up:
[2016-12-03 05:48] LABS: INR - (THERAPEUTIC) 2.4 (0.9-1.1); PROTIME 27.7 SECONDS (9.6-11.1)
--- NOTE | 2016-12-03 13:10 | NUR ---
Significant Event: Patient alert and oriented. 1 assist. Sternal precautions. Heart hugger. Port to right chest. Walking boot to left leg when up. Taking Dilaudid given for pain. Taking Phenegren for nausea, Accuchecks with her own sliding scale. Not feeling well today. Still having loose stools. Follow up:
--- NOTE | 2016-12-04 03:22 | NUR ---
Significant Event: Patient is alert and oriented. Ambulates with standby assist wears heart hugger. Contact isolation continues for C-diff. Port to right chest intact flushes well, good blood return. Accuchecks AC/HS. Pleasant and cooperative with cares. Follow up:
[2016-12-04 10:35] LABS: BASOPHIL % 0.5 %; EOSINOPHIL # 0.2 K/uL (0.0-0.5); EOSINOPHIL % 3.5 %; HEMATOCRIT 26.9 % (33.0-46.0); HEMOGLOBIN 8.1 g/dL (10.0-15.0); IMMATURE GRANULOCYTE % 0.2 %; LYMPHOCYTE # 1.9 K/uL (0.8-4.0); LYMPHOCYTE % 33.6 %; MCH 26.3 pg (27.0-34.0); MCHC 30.1 gm/dL (32.0-36.5); MCV 87.3 fl (83.0-98.0); MONOCYTE # 0.7 K/uL (0.0-1.0); MONOCYTE % 11.6 %; MPV 9.6 fl (9.4-12.4); NEUTROPHIL # (ANC) 2.9 K/uL (1.8-7.8); NEUTROPHIL % 50.6 %; NRBC % 0 /100WBC (0-0.00); PLATELET COUNT 282 K/uL (150-450); RBC 3.08 M/uL (3.50-5.50); WBC 5.8 K/uL (4.0-11.0)
[2016-12-04 10:56] LABS: ANION GAP 16.9 (10.0-19.0); CALCIUM 8.3 mg/dL (8.5-10.5); CREATININE 1.1 mg/dL (0.5-1.1); POTASSIUM 3.9 mMol/L (3.7-5.1)
--- NOTE | 2016-12-04 13:40 | NUR ---
patient has c-diff. states she had 8 stools in 3 hours this am. indicates patient will not be dismissing tomorrow. Patient may want to use intelliride to go home, pending availability of friend to come get her when dismissed. Team recommeds d/c next thursday12-12-16, as sternal precautions will be up on 12-11 and patient has not felt good this week, so OT indicates they could work on some new goals with patient end of next week. patient desires [facility] out of [facility] upon d/c. face to face in chart for doctor to sing.
--- NOTE | 2016-12-04 16:47 | NUR ---
Significant Event: A/0 X 3, REQUEST PAIN MEDICATION AT 0700, AND 1300. IV PORT NEEDLE CHANGED, FLUSHES WELL GOOD BLOOD RETURN, BLOOD SUGAR ACHS, ORDERS FOR BMP AND CBC TODAY. DC DATE CHANGED TO NEXT WEEK. STANDBY ASSIST IN ROOM, CONTINUES IN CDIFF PRECAUTIONS, CHEST HUGGER AND STERNAL PRECAUTIONS ON AT ALL TIMES. 2000ML FLUID RESTRICTION- HAD 855 IN TODAY. Follow up:
--- NOTE | 2016-12-05 02:44 | NUR ---
Significant Event: Has been independent in room. Pleasant & cooperative. Wears o2/2L/nc at hs. ACHS blood sugars. Has c-diff & said she had a couple of stools but did not let us see them. She was instructed to let us see the next one. Port flushes well with good blood return. COntinues to receive po vanco every 6 hrs. Continues on 1999 fluid restriction. COntinues on sternal precautions. Take credit for new bottle of water in room. VSS. Had zanaflex at 1900 & kaley @ 0194. Follow up:
[2016-12-05 05:56] LABS: INR - (THERAPEUTIC) 3.1 (0.9-1.1); PROTIME 36.1 SECONDS (9.6-11.1)
--- NOTE | 2016-12-05 12:44 | NUR ---
PATIENT WAS CARED FOR BY A STUDENT NURSE FROM [id number] AND SUPERVISED BY Patrizia CUEVA RN FROM [facility]
--- NOTE | 2016-12-05 12:58 | NUR ---
Significant Event: Pt a/o x 3, cooperative with cares. Cared for by student until 1300. Continues on sternal precautions. Mod Indep in room. Had one formed stool at 0390 and one loose stool at 1030. Dilaudid given at noon for chest pain rated 8/10, also c/o l) flank pain. Follow up:
--- NOTE | 2016-12-06 02:30 | NUR ---
Significant Event: Alert & oriented. Pleasant & cooperative. Up in room ad william. Does not put boot on up in room for ankles. Does use heart hugger. ACHS blood sugars. No reports from pt of stools, (C-DIFF) Wears 02/2L/nc at hs. Had Dilaudid at 2100 @ 0230, and muscle relaxer about 2000. IV port in rt chest. INR will be drawn this morning. Follow up:
[2016-12-06 05:58] LABS: INR - (THERAPEUTIC) 2.9 (0.9-1.1); PROTIME 33.7 SECONDS (9.6-11.1)
--- NOTE | 2016-12-06 14:38 | NUR ---
Significant Event:A/0 X 3, MOD I IN ROOM, STATES STOOLS ARE FORMED BUT WILL NOT LET STAFF LOOK. PORT R)CHEST FLUSHES WELL GOOD BLOOD RETURN, ACCUCHECKS AC/HS NO SLIDING SCALE NEEDED, CAM BOOT TO L)FOOT. DILAUDID FOR PAIN AT 0730 AND 1330. Follow up:
--- NOTE | 2016-12-07 03:42 | NUR ---
Significant Event: Alert & oriented. Pleasant & cooperative. Up ad william in room. Refuses to wear boot on lt foot. Had a solid bm last night. Had Dilaudid @ 1608. VSS. ACHS blood sugars. Rt port flushes well with good blood return. Follow up:
[2016-12-07 05:47] LABS: INR - (THERAPEUTIC) 2.5 (0.9-1.1); PROTIME 28.7 SECONDS (9.6-11.1)
--- NOTE | 2016-12-07 13:40 | NUR ---
Significant Event: A/0 X 3, MOD I IN ROOM, CHEST HUGGER AND STERNAL PRECAUTIONS CONTINUE UNTIL 12/10, DC CDIFF ISOLATION, SHOWER MOVED TO NEW ROOM, FORMED STOOLS TODAY, CAM BOOT TO L)LEG WHILE AMBULATING, PORT IV ACCESS FLUSHES GOOD BLOOD RETURN, CAPS CHANGED, 1500ML FLUID RESTRICTION CONTINUES. Follow up:
--- NOTE | 2016-12-08 01:49 | NUR ---
Significant Event: Alert & oriented. Pleasant & cooperative. ACHS blood sugars. Incisions healed. at [facility] at 1830, and of this writing has asked for nothing more for pain. She is no longer in isolation & is up ad william in room. Rt chest iv flushes well with good blood return. Wears 02/2L/nc at night only. Continues on coumadin. Follow up:
[2016-12-08 05:45] LABS: INR - (THERAPEUTIC) 2.3 (0.9-1.1); PROTIME 25.7 SECONDS (9.6-11.1)
[2016-12-08] MEDS ORDERED: NORVASC10 MG PO (11:47)
[2016-12-08] MEDS ORDERED: HYGROTON25 MG PO (11:50)
[2016-12-08] MEDS ORDERED: ZESTRIL2.5 MG PO (11:58)
[2016-12-08] MEDS ORDERED: RISPERDAL1 MG PO (11:58)
[2016-12-08] MEDS ORDERED: COUMADIN6 MG PO (11:59)
[2016-12-08] MEDS ORDERED: DILAUDID 2MG(HYD2 MG PO (12:01)
[2016-12-08] MEDS ORDERED: OXYGEN M-15 INH (12:06)
--- NOTE | 2016-12-08 12:12 | NUR ---
Student nurse provided patient cares from 0600 to 1215. Jennifer Corral RN, [facility] Instructor
--- NOTE | 2016-12-08 14:02 | NUR ---
Significant Event: Patient alert and orineted. Up ad william in room. Sternal precautions. Heart hugger. Fluid restriction. Port to right chest intact. Accuchecks with her own sliding scale. Follow up:
--- NOTE | 2016-12-08 16:13 | NUR ---
physician indicates patient can d/c to home tomorrow. patient in agreement to plan. will notify [facility] [place], as patient wants initial help with medications and coumadin monitoring, although she states she has a home testing kit.
--- NOTE | 2016-12-09 02:00 | NUR ---
D: Nursing Discharge Summary From 11/20/16 to 12/09/16 I: Nursing interventions provided to support the patient's individual plan of care R: MOBILITY-- Independent NUTRITION-- Diabetic diet with 2000mL fluid restriction SKIN/INCISIONS/WOUNDS-- Sternal incision, healed and scabbed over SELF CARES-- Independent BOWEL/BLADDER-- Continent RESPIRATORY-- Room air during day; 2 L oxygen per NC at night PAIN-- Dilaudid 2 mg Q4Hr PO, and Zanaflex BID/PRN PSYCHOSOCIAL-- Friend attentive to needs COGNITION-- Alert and oriented SPECIAL NEEDS-- Heart hugger for sternal precautions BLEEDING-- Coumadin daily SENSORY IMPAIRMENTS/DENTAL NEEDS: TEACHING NEEDS-- INFECTION CONCERNS: Signs and symptoms of infection: redness, warmth, drainage and fever RISK FOR ELOPEMENT: None NEED FOR BED/MOVEMENT ALARM: None DISMISSAL PLANS: Home with Home Health Care Other: P: Current plan of care reviewed and updated Janet LAINEZ 12/09/16
[2016-12-09 05:57] LABS: INR - (THERAPEUTIC) 2.5 (0.9-1.1); PROTIME 28.7 SECONDS (9.6-11.1)
--- NOTE | 2016-12-09 15:24 | NUR ---
Significant Event: Patient alert and oriented. Up ad william in room. Sternal precautions. Accuchecks with her own s/s insulin. To go home today. Taking oral Dilaudid for pain. Follow up:
== END 2016-12-09 12:05 | disposition disaster alternative care site (69) | DRG 71 ==
LOC: GSNF 15:46
PROVIDERS: Family Medicine; Internal Medicine; Nurse Practitioner Women's Health; Physician Assistant; ADMIT Hospitalist
DX: G93.41 Metabolic encephalopathy (principal); N17.9 Acute kidney failure, unspecified; A04.7 Enterocolitis due to Clostridium difficile; E11.22 Type 2 diabetes mellitus with diabetic chronic kidney disease; N18.3 Chronic kidney disease, stage 3 (moderate); Z68.42 Body mass index [BMI] 45.0-49.9, adult; Z48.812 Encounter for surgical aftercare following surgery on the circulatory system; I12.9 Hypertensive chronic kidney disease with stage 1 through stage 4 chronic kidney disease, or unspecified chronic kidney disease; I25.10 Atherosclerotic heart disease of native coronary artery without angina pectoris; Z86.718 Personal history of other venous thrombosis and embolism; Z95.1 Presence of aortocoronary bypass graft; F91.8 Other conduct disorders; E66.01 Morbid (severe) obesity due to excess calories; G54.0 Brachial plexus disorders; Z79.82 Long term (current) use of aspirin
CPT/HCPCS: J1170; J1642; J1644; J2550; J3370

== ENCOUNTER 2016-12-15 14:26 | Emergency (ER) | payer MEDICARE, MEDICAID ==
--- NOTE | ~2016-12-15 | ER ---
[facility] 61 Y [address] ROOM: [place] [address] LOCATION: [facility] ADMIT DATE: 12/15/2016 ER/Outpatient Report DISCHARGE DATE: 12/15/2016 FAMILY PHYSICIAN: Mary Norris MD ATTENDING PHYSICIAN: Roxane Schwarz Time of Arrival: 1426 hours. Time of Evaluation: 1430 hours. IDENTIFICATION: A 61-year-old female. CHIEF COMPLAINT: Chest pain. HISTORY OF PRESENT ILLNESS: The patient is a 61-year-old female, who does have known coronary artery disease who also has multiple psychiatric issues. She presents complaining of intermittent sharp chest pain, anterior chest wall with some radiation, but no other associated symptoms. She apparently was seen at a local ER yesterday for the same pain and cardiac etiology ruled out. She just wanted a second opinion today. ALLERGIES: SULFA, PENICILLIN, ZOFRAN, COMPAZINE, TRAZODONE, AND IODINATED CONTRAST. CURRENT MEDICATIONS: 1. Carvedilol 25 mg b.i.d. 2. Famotidine 20 mg daily. 3. Insulin 5 units NovoLog 3 times a day. 4. Insulin detemir 20 units subcu at h.s. 5. Bupropion 150 mg daily. 6. Albuterol q.6 hours p.r.n. 7. Amiodarone 200 mg b.i.d. 8. Aspirin 81 mg daily. 9. Atorvastatin 10 mg daily. 10. Dulcolax suppository p.r.n. 11. Phenergan p.r.n. 12. Tizanidine 4 mg p.r.n. 13. Amlodipine 10 mg daily. 14. Chlorthalidone 12.5 mg daily. 15. Labetalol 100 mg b.i.d. 16. Lisinopril 2.5 mg daily. 17. Risperidone 1 mg b.i.d. 18. Warfarin 5 mg daily. PAT[facility]'S [facility]: [facility] AGE: 61 Y [address] ROOM: [place] [address] LOCATION: ED ADMIT DATE: 12/15/2016 ER/Outpatient Report DISCHARGE DATE: 12/15/2016 FAMILY PHYSICIAN: Mary Norris MD ATTENDING PHYSICIAN: Roxane Schwarz. Hydromorphone 1 mg q.4 hours p.r.n. O2 at h.s. 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 FAMILY HISTORY: Hypertension. SOCIAL HISTORY: The patient lives in [place]. Tobacco use denies currently. Alcohol use denies. Drug use denies. REVIEW OF SYSTEMS: All systems reviewed negative other than what is noted in the HPI. PHYSICAL EXAMINATION: VITAL SIGNS: 5 feet 1 inch, weight 109.4 kg, blood pressure 169/81, pulse 74, respirations 16, temperature 96.2, and sats 99%. GENERAL: A 61-year-old female, in no acute distress. HEENT: Normocephalic, atraumatic. Ears: TMs are translucent both ears. Eyes: Pupils are equal and reactive to light and accommodation. Extraocular movements intact. Nose: Mucosa pink. No lesions. Mouth: No lesions. Pharynx benign. NECK: Supple. No lymphadenopathy. LUNGS: Clear to auscultation. HEART: Regular rate and rhythm. ABDOMEN: Bowel sounds are present. Soft, nondistended, nontender. SKIN: [place], warm, and dry. She is tender in her chest wall. EXTREMITIES: Trace of edema. No calf tenderness. NEURO: No focal deficit. LABORATORY DATA: Chest x-ray, right-sided Port-A-Cath. Negative chest x-ray. Pending Radiology over-read. A saline lock was initiated. Initial EKG, normal sinus rhythm at 74 beats per minute. No acute ST elevation. She does have T-wave inversion present through our EKG at 1334 hours in normal sinus rhythm at 74 beats per minute. T-wave inversion anteriorly. No acute change from her first EKG, which was present on prior EKG dated 11/30/2016. It is new or changed from EKG in October, stable from her last EKG. Hemoglobin is 9.5, which is up from 8.1, 12/04/2016. Microcytic indices are present. CPK 106, CK-MB 0.7. Troponin I less than 0.040. ProBNP 353. ProBNP on 11/16/2016 was PATIENT'S NAME: FRANCISCO JAVIER BUTLER [facility] AGE: 61 Y [address] ROOM: [place], [place] [address] LOCATION: [facility] ADMIT DATE: 12/15/2016 ER/Outpatient Report DISCHARGE DATE: 12/15/2016 FAMILY PHYSICIAN: Mary Norris MD ATTENDING PHYSICIAN: Roxane Schwarz 1386. Sodium 137, potassium slightly low at 3.3, chloride 101, CO2 25, BUN 13, creatinine 1.2, blood sugar 142. Liver enzymes are normal. They were 90- minute cardiac enzymes; CPK 117, CK-MB less than 0.5. Troponin I less than 0.040. UA is negative. IMPRESSION: Atypical chest pain. PLAN: The patient does not want to wait any longer. She states that she feels well enough to go home. Initial EKG and enzymes x2 are negative. Plan discharge to home. Continue current medications. Follow up with Dr. Roberts as scheduled. ROXANE SCHWARZ MD CAR/modl /[id number] d: 12/16/1628 t: 12/23/16 1423, OUTPATIENT REPORT
[~2016-12-15 14:26] MED LIST changes: +COUMADIN6 MG PO; +DILAUDID 2MG(HYD2 MG PO; +HYGROTON25 MG PO; +OXYGEN M-15 INH; +RISPERDAL1 MG PO; +ZESTRIL2.5 MG PO
[2016-12-15 15:10] LABS: BASOPHIL # 0.1 K/uL (0.0-0.2); BASOPHIL % 0.6 %; EOSINOPHIL # 0.2 K/uL (0.0-0.5); EOSINOPHIL % 2.4 %; HEMATOCRIT 30.9 % (33.0-46.0); HEMOGLOBIN 9.5 g/dL (10.0-15.0); IMMATURE GRANULOCYTE % 0.3 %; LYMPHOCYTE # 2.2 K/uL (0.8-4.0); LYMPHOCYTE % 24.8 %; MCH 25.5 pg (27.0-34.0); MCHC 30.7 gm/dL (32.0-36.5); MONOCYTE # 0.9 K/uL (0.0-1.0); MONOCYTE % 10.5 %; MPV 9.7 fl (9.4-12.4); NEUTROPHIL # (ANC) 5.4 K/uL (1.8-7.8); NEUTROPHIL % 61.4 %; NRBC % 0 /100WBC (0-0.00); PLATELET COUNT 337 K/uL (150-450); RBC 3.73 M/uL (3.50-5.50); RDW-CV 14.6 % (11.9-14.6); WBC 8.8 K/uL (4.0-11.0)
[2016-12-15 15:13] LABS: MCV 82.8 fl (83.0-98.0)
[2016-12-15 15:21] LABS: INR - (THERAPEUTIC) 2.2 (0.9-1.1); PROTIME 24.1 SECONDS (9.6-11.1)
[2016-12-15 15:23] LABS: PTT 37 SECONDS (25-32)
[2016-12-15 15:29] LABS: ALBUMIN 3.2 gm/dL (3.5-5.0); ALK PHOS 52 IU/L (33-138); ALT 36 IU/L (12-78); ANION GAP 14.3 (10.0-19.0); AST 28 IU/L (10-40); BLOOD UREA NITROGEN 13 mg/dL (6-24); CALCIUM 9.2 mg/dL (8.5-10.5); CHLORIDE 101 mMol/L (96-110); CO2 25 mMol/L (22-32); CPK 106 IU/L (21-215); CREATININE 1.2 mg/dL (0.5-1.1); ESTIMATED GFR (MDRD EQUATION) 46; MAGNESIUM 1.6 mg/dL (1.3-2.6); POTASSIUM 3.3 mMol/L (3.7-5.1); SODIUM 137 mMol/L (135-145); TOTAL PROTEIN 8.2 g/dL (6.0-8.4)
[2016-12-15 15:30] LABS: TOTAL BILIRUBIN 0.2 mg/dL (0.0-1.5)
[2016-12-15 16:16] LABS: BILIRUBIN URINE NEGATIVE (NEGATIVE); BLOOD URINE NEGATIVE /UL (NEGATIVE); GLUCOSE URINE NEGATIVE (NEGATIVE); KETONE URINE NEGATIVE (NEGATIVE); LEUKOCYTES URINE 100 /UL (NEGATIVE); NITRITE URINE NEGATIVE (NEGATIVE); PROTEIN URINE 15 mg/dL (NEGATIVE); UROBILINOGEN URINE NORMAL (NORMAL)
[2016-12-15 16:19] LABS: COLOR URINE YELLOW (YELLOW)
[2016-12-15 16:20] LABS: TURBIDITY URINE CLEAR (CLEAR)
[2016-12-15 16:23] LABS: RBC URINE NEGATIVE #/HPF (NEGATIVE)
[2016-12-15 16:24] LABS: BACTERIA URINE NEGATIVE (NEGATIVE)
[2016-12-15 16:55] LABS: CPK 117 IU/L (21-215)
== END 2016-12-15 17:12 | disposition disaster alternative care site (69) ==
LOC: GMED 14:26
PROVIDERS: Family Medicine
DX: R07.89 Other chest pain (principal); I10 Essential (primary) hypertension; I25.10 Atherosclerotic heart disease of native coronary artery without angina pectoris; E11.9 Type 2 diabetes mellitus without complications; Z79.4 Long term (current) use of insulin; Z79.899 Other long term (current) drug therapy; Z88.0 Allergy status to penicillin; Z88.2 Allergy status to sulfonamides; Z88.8 Allergy status to other drugs, medicaments and biological substances; Z79.82 Long term (current) use of aspirin

== ENCOUNTER 2017-02-02 07:49 | Emergency (ER) | payer MEDICARE, MEDICAID ==
--- NOTE | ~2017-02-02 | ER ---
PATIENT'S NAME: FRANCISCO JAVIER BUTLER [facility] AGE: 61 Y [address] ROOM: [place] [address] LOCATION: [facility] ADMIT DATE: 02/02/2017 ER/Outpatient Report DISCHARGE DATE: 02/02/2017 FAMILY PHYSICIAN: Mary Norris MD ATTENDING PHYSICIAN: Theo Westbrook Admission date and time documented in the medical record. I saw the patient at 0800 hours. CHIEF COMPLAINT: Chest pain. HISTORY OF PRESENT ILLNESS: This patient is a 61-year-old female, who has had left anterior chest pain off and on since Thursday. Radiates to her left jaw and left shoulder. She was here for a Cardiolite stress test, developed chest pain, test was aborted, and she was brought to the emergency room for evaluation. The patient does have a cough with some expiratory wheezes. The patient does have a history of asthma. She said she has had fever off and on such as Thursday and Thursday. She is afebrile here in the emergency department. She has nausea with 2 episodes of vomiting over the past couple days. Does have some shortness of breath accompanying the chest pain and some diaphoresis. She is known to have coronary artery disease, has had a recent 3-vessel coronary bypass graft. She has diabetes. No other endocrine problems. She has a history of depression, anxiety, and aggressive behavioral disorder. No history of TIA, CVA, or seizure disorder; however, has had some recurrent syncope. No lightheadedness, dizziness, syncope, or near syncope today. No headache, eyes, ears, nose, throat, neck, or spine pain. No fall or trauma. She has had this coarse bronchitic-type cough with intermittent fever over the past few days. No abdominal pain, nausea, vomiting, diarrhea, or urinary symptoms. No joint or muscle swelling, redness, or pain. No skin eruptions or rash. HOME MEDICATIONS: See attached medication list. ALLERGIES: SULFA, PENICILLIN, ZOFRAN, COMPAZINE, TRAZODONE, IODINE CONTRAST DYE, RITALIN, INFLUENZA VACCINE, PNEUMONIA VACCINE, DEMEROL, CODEINE, AND HYDROMORPHONE. SOCIAL HISTORY: Nonsmoker and nondrinker. The patient lives in [place], [place]. SIGNIFICANT PAST MEDICAL HISTORY: Atherosclerotic ischemic heart disease with coronary artery disease; nocturnal hypoxemia; long-term anticoagulation; acute on chronic kidney disease, PATIENT'S NAME: FRANCISCO JAVIER BUTLER [facility] AGE: 61 Y [address] ROOM: [place], [place] [address] LOCATION: [facility] ADMIT DATE: 02/02/2017 ER/Outpatient Report DISCHARGE DATE: 02/02/2017 FAMILY PHYSICIAN: Mary Norris MD ATTENDING PHYSICIAN: Theo Westbrook resolved; insulin-dependent diabetes mellitus type 2; deep vein thrombosis; hypertension; aggressive behavior disorder; depression; anxiety; exogenous obesity; C. diff colitis; deconditioning; recurrent syncope; gastroesophageal reflux; peptic ulcer disease; degenerative osteoarthritis; asthma; and systolic congestive heart failure. OPERATIONS: [place] filter placement, appendectomy, tonsillectomy, port placement, 3- vessel coronary bypass graft, gastric bypass procedure, left elbow surgery, right shoulder surgery, cardiac catheterization, hysterectomy, and cholecystectomy. REVIEW OF SYSTEMS: All systems reviewed by me are negative with the exception of those discussed in the history of present illness. PHYSICAL EXAMINATION: VITAL SIGNS: Temperature 97.8, pulse 74, respirations 22, blood pressure 180/86, and O2 saturation on room air is 95%. [place] Coma Scale was 15. HEAD: Normocephalic. EYES: Extraocular muscles intact. PERRL. EARS, NOSE, THROAT: Clear. Mucous membranes moist. NECK: No nuchal rigidity. No findings of adenopathy. No tenderness. No carotid bruits. SPINE: Negative. LUNGS: Clear on inspiration, expiratory wheezing, coarse bronchitic cough, nonproductive. HEART: Regular. Pulses are palpable. Tenderness over the left anterior chest wall to palpation. Port is in the right upper chest anteriorly. ABDOMEN: Soft, nondistended, and nontender. Good bowel tones. No organomegaly or abnormal mass palpable. EXTREMITIES: Without peripheral edema, cyanosis, or deformity. NEUROVASCULAR: Intact. SKIN: Clear. No skin eruptions or rash. IMAGING: EKG showed sinus rhythm, anterior T-wave inversions are nonspecific with possible ischemic changes, no acute ST elevation or arrhythmia. Chest x-ray showed no acute infiltrate or changes. We will review x-ray with the radiologist. LABORATORY DATA: White count is 8000, 63 segs, 19 lymphs, 15 monos, 2 eos, hemoglobin is 8.9, hematocrit 30.2, and platelet count is 271,000. PTT was 34. Pro-time was 29.6 with an INR of 2.79. D-dimer was 0.76. CMS was normal except for a low PATIENT'S NAME: FRANCISCO JAVIER BUTLER [facility] AGE: 61 Y [address] ROOM: [place] [address] LOCATION: [facility] ADMIT DATE: 02/02/2017 ER/Outpatient Report DISCHARGE DATE: 02/02/2017 FAMILY PHYSICIAN: Mary Norris MD ATTENDING PHYSICIAN: Theo Westbrook potassium of 3.6, elevated glucose of 145, low calcium of 8.4, low GFR of 57. Magnesium was 2. CPK x2 was normal. Point of care cardiac enzymes x2, 2 hours apart were normal. CRP was less than 0.29. ProBNP was 289. Lactate was 1.6. Procalcitonin was less than 0.05. EMERGENCY DEPARTMENT COURSE: I did give the patient 2 doses of 2 mg morphine IV for pain. Gave her DuoNeb respiratory treatment in the emergency department. IMPRESSION: 1. Left anterior chest pain, most likely chest wall etiology. The patient does have a history of atherosclerotic ischemic heart disease with coronary artery disease and recently underwent, I believe about 2 to 3 months ago, 3-vessel coronary artery bypass graft. 2. Bronchitis, most likely viral etiology. 3. Anemia of chronic disease with a hemoglobin of 8.9, which is stable for her. 4. Long-term anticoagulation because of deep vein thrombosis. The patient does have a [place] filter in place and her INR was 2.79. 5. Insulin-dependent diabetes mellitus type 2. 6. Asthma/chronic obstructive pulmonary disease. 7. Hypertension. 8. Exogenous obesity. 9. Systolic congestive heart failure. PLAN: The patient dismissed home. Observation. Activity as tolerated. Continue present home medications and care. Follow up with personal physician tomorrow. Discussed ensued with the patient concerning my findings and recommendations, she understands. THEO WESTBROOK MD SDS/modl /[id number] d: 02/02/17 1807 t: 02/03/17611, OUTPATIENT REPORT
[~2017-02-02 07:49] MED LIST changes: -ANTIVERT **IA12.5 MG PO; -ATIVAN 0.5MG0.5 MG PO; -CO Q-10200 MG PO; -COZAAR100 MG PO; -DELTASONE20 M1 PO; -FLORASTOR250 MG PO; -IMDUR60 MG PO; -LASIX20 MG PO; -LEVAQUIN 750 M750 MG PO; -NORCO 10-325 T1 EACH PO; -PROVENTIL OR V6.7 GM INH; -TRANDATE OR NO100 MG PO; -VITAMIN D5000 UNI1 PO
[2017-02-02 08:16] LABS: BASOPHIL % 0.3 %; EOSINOPHIL # 0.2 K/uL (0.0-0.5); EOSINOPHIL % 2.4 %; HEMATOCRIT 30.2 % (33.0-46.0); HEMOGLOBIN 8.9 g/dL (10.0-15.0); IMMATURE GRANULOCYTE % 0.4 %; LYMPHOCYTE # 1.5 K/uL (0.8-4.0); LYMPHOCYTE % 19.3 %; MCH 23.2 pg (27.0-34.0); MCHC 29.5 gm/dL (32.0-36.5); MONOCYTE # 1.2 K/uL (0.0-1.0); MPV 9.7 fl (9.4-12.4); NEUTROPHIL % 62.6 %; NRBC % 0 /100WBC (0-0.00); PLATELET COUNT 271 K/uL (150-450); RBC 3.84 M/uL (3.50-5.50); RDW-CV 15.9 % (11.9-14.6)
[2017-02-02 08:20] LABS: MCV 78.6 fl (83.0-98.0)
[2017-02-02 08:26] LABS: INR - (THERAPEUTIC) 2.79 (0.92-1.07); PROTIME 29.6 SECONDS (9.8-11.4); PTT 34 SECONDS (25-32)
[2017-02-02 08:36] LABS: ALK PHOS 46 IU/L (33-138); ALT 23 IU/L (12-78); ANION GAP 11.6 (10.0-19.0); AST 18 IU/L (10-40); BLOOD UREA NITROGEN 11 mg/dL (6-24); CALCIUM 8.4 mg/dL (8.5-10.5); CHLORIDE 103 mMol/L (96-110); CO2 29 mMol/L (22-32); CPK 70 IU/L (21-215); POTASSIUM 3.6 mMol/L (3.7-5.1); SODIUM 140 mMol/L (135-145); TOTAL BILIRUBIN 0.2 mg/dL (0.0-1.5); TOTAL PROTEIN 7.4 g/dL (6.0-8.4)
[2017-02-02 08:37] LABS: ESTIMATED GFR (MDRD EQUATION) 57
[2017-02-02 10:37] LABS: CPK 69 IU/L (21-215)
== END 2017-02-02 10:26 | disposition disaster alternative care site (69) ==
LOC: GMED 07:49
PROVIDERS: Emergency Medicine
DX: R07.89 Other chest pain (principal); J20.8 Acute bronchitis due to other specified organisms; E11.22 Type 2 diabetes mellitus with diabetic chronic kidney disease; I13.0 Hypertensive heart and chronic kidney disease with heart failure and stage 1 through stage 4 chronic kidney disease, or unspecified chronic kidney disease; I50.20 Unspecified systolic (congestive) heart failure; N18.9 Chronic kidney disease, unspecified; D63.1 Anemia in chronic kidney disease; J45.909 Unspecified asthma, uncomplicated; J44.9 Chronic obstructive pulmonary disease, unspecified; E66.09 Other obesity due to excess calories; Z88.0 Allergy status to penicillin; Z88.2 Allergy status to sulfonamides; Z88.8 Allergy status to other drugs, medicaments and biological substances
CPT/HCPCS: J1642; J2270

== ENCOUNTER → 2017-02-02 | Outpatient (CLI) | payer MEDICARE, MEDICAID ==
[~2017-02-02] MED LIST changes: +ANTIVERT **IA12.5 MG PO; +ATIVAN 0.5MG0.5 MG PO; +CO Q-10200 MG PO; +COZAAR100 MG PO; +DELTASONE20 M1 PO; +FLORASTOR250 MG PO; +IMDUR60 MG PO; +LASIX20 MG PO; +LEVAQUIN 750 M750 MG PO; +NORCO 10-325 T1 EACH PO; +PROVENTIL OR V6.7 GM INH; +TRANDATE OR NO100 MG PO; +VITAMIN D5000 UNI1 PO
== END | disposition disaster alternative care site (69) ==
LOC: GRAD 06:55
DX: Z53.8 Procedure and treatment not carried out for other reasons (principal); R07.9 Chest pain, unspecified

== ENCOUNTER 2017-02-06 19:04 | Inpatient (IN) | payer MEDICARE, MEDICAID ==
[~2017-02-06] VITALS: Ht 154.9 cm; Wt 109.7 kg
--- NOTE | ~2017-02-06 | ENPV ---
Vascular Upper Extremities Veins Procedure Demographics Patient Name FRANCISCO JAVIER BUTLER Date of Study 02/07/2017 Patient Number [id number] Gender Female Date of 1955 Age 61 Visit Number [id number] Height Accession Number [id number] Weight Room Number G3201 BSA BMI Referring Jazmin Kiser MD Interpreting Jose Valderrama MD Physician Physician Physician Ordering Jazmin Kiser MD Barrel Repairer Physician Harness Maker Madelaine Knutson, RT,RVT,RDCS Conclusions Summary No evidence of thrombophlebities is noted in the deep or superficial veins of the imaged upper extremity(ies). Procedure Type of Study: Veins:Upper Extremities Veins, Upper Extremity Right. Indications for Study:Unilateral edema. Appropriate Use Criteria:9 Allergies - Other:(iodinated contrast,PCN, sulfa, flu caccinem serotonin 5HT3, zofran, opiods, demerol, iodine, lopanoicarid, prochlorperodine, conddine, propoxyphene, acetominophen, lactose, tramadol,mehylphenidate, methadone, metoclopramide, ondansetron, pneumococcal vaccine, tomato , sulfa, opiods-meperidene and related prochlorperazine, codeine, meperide, hydromorphone). Patient Status:Routine. Study Location:Inpatient Portable. Technical Quality:Adequate visualization. - Preliminary reported to:MIGEL Doran. Velocities are measured in cm/s ; Diameters are measured in cm Right UE Vein Measurements 2D and Doppler Measurements + + + + +--------+--------+ !Location !Visualized !Compressibility !Thrombosis !Signal !Reflux ! + + + + +--------+--------+ !IJV !Yes !Yes !None !Phasic !No ! + + + + +--------+--------+ !SCV !Yes !Yes !None !Phasic !No ! + + + + +--------+--------+ !Innominate !Yes !Yes !None !Phasic !No ! + + + + +--------+--------+ !Axillary !Yes !Yes !None !Phasic !No ! + + + + +--------+--------+ !Brachial !Yes !Yes !None !Phasic !No ! + + + + +--------+--------+ !Radial !Yes !Yes !None !Phasic !No ! + + + + +--------+--------+ !Ulnar !Yes !Yes !None !Phasic !No ! + + + + +--------+--------+ !Basilic !Yes !Yes !None !Phasic !No ! + + + + +--------+--------+ !Cephalic !Yes !Yes !None !Phasic !No ! + + + + +--------+--------+ Left UE Vein Measurements 2D and Doppler Measurements + + + + +--------+ + !Location !Visualized !Compressibility !Thrombosis !Signal !Reflux ! + + + + +--------+ + !SCV !Yes ! !None ! ! ! + + + + +--------+ + Impressions Right Impression Negative for DVT in right upper extremity. There is a port in the right subclavian so no evaluation in that part of subclavian. Left Impression Negative for DVT in left subclavian vein for comparison. Signature dtt: GERTRUDE RIBEIRO: 02/07/17 5660 Physician Self Edit
--- NOTE | ~2017-02-06 | ER ---
PAT[facility] AGE: 61 Y [address] ROOM: [place] [address] [place] [facility] [place]: 02/06/2017 ER/Outpatient Report DISCHARGE DATE: 02/10/2017 FAMILY PHYSICIAN: Physician, Unknown ATTENDING PHYSICIAN: Arun Wu Time of Arrival: 1901 hours. Time of Evaluation: 1901 hours. CHIEF COMPLAINT: Shortness of breath. HISTORY OF PRESENT ILLNESS: The patient states she has been having problems for the past week with shortness of breath. States she did see somebody in pulmonology today, but she reports they did not make any changes to her medications or treatment plan. Reports she was headed home to [place] when she began coughing to the point of vomiting. She did call and talk with the fitness plan coordinator. They encouraged her to come back to the ER for evaluation. She states she has been coughing, wheezing, has generalized chest discomfort from the coughing. Cough is productive of green sputum. Denies having a fever. Does get short of breath especially with the coughing. ALLERGIES: ON HER CHART AND REVIEWED BY ME. CURRENT MEDICATIONS: On her chart and reviewed by me. She states she does do home nebulizer treatments and did a nebulizer treatment at 3 o'clock. She reports she has also been on Levaquin for the past 4 days. PAST MEDICAL HISTORY: Acute renal failure, [id number] diabetes, asthma, COPD, GERD. PAST SURGERIES: Coronary artery bypass graft done 2-1/2 months ago, three vessels; cholecystectomy; tonsillectomy; right shoulder repair; hysterectomy. SOCIAL HISTORY: The patient does live in [place]. Denies use of tobacco, drugs, or alcohol. Sees Dr. Roberts for human resources office manager and fitness plan coordinator here at [facility]. Does see Dr. Aragons in [place]. REVIEW OF SYSTEMS: All negative other than those mentioned in the HPI. PATIENT'S NAME: [facility] AGE: 61 Y [address] ROOM: [place] [address] [place] [facility] [place] 02/06/2017 ER/Outpatient Report DISCHARGE DATE: 02/10/2017 FAMILY PHYSICIAN: Physician, Unknown ATTENDING PHYSICIAN: Arun Wu PHYSICAL EXAMINATION: VITAL SIGNS: She weighs 111.2 kg, blood pressure is 189/95, pulse of 100, respirations 24, temperature of 98.2 orally, O2 sats 91% on room air. GENERAL: She is awake, alert, and oriented x4. SKIN: [place], warm, and dry. LUNGS: Respirations are even, slightly labored. Lung sounds are coarse throughout. Wheezing is heard. She has exertional shortness of breath. HEART: Regular rate and rhythm. ABDOMEN: Soft, nondistended. Bowel sounds are present. EXTREMITIES: She has strong pedal pulses. Does have 2+ pedal edema, left greater than right. Her port was accessed. Lab was drawn. Nebulizer treatment of DuoNeb was given. LABORATORY DATA AND X-RAYS: EKG shows sinus rhythm with occasional PVC. CBC: White count is 7.1, hemoglobin is 8.5 with hematocrit of 28.4. This is where her hemoglobin has been in the past. Chem panel: Sodium is 140, potassium is 3.4, chloride of 103, BUN is 12 with a creatinine of 1.1. GFR was 51. CPK was 86 with a CK-MB of 0.5, and troponin less than 0.040. Lactate was 1.1. Procalcitonin is normal. She is on Coumadin. Her INR was 1.66. ProBNP was 206. Chest x-ray does not show any acute infiltrates. EMERGENCY DEPARTMENT COURSE: She did have a repeat albuterol nebulizer, which she states makes it feel as though she can breathe easier. I did talk with Dr. Carrion, the fitness plan coordinator. He states that he feels the patient's symptoms are more related to fluid overload. He would like her to be admitted. I did talk with Dr. Wu, the hospitalist. He did come down and examined the patient. The patient was given Dilaudid 0.5 mg IV, which she often takes at home for pain. She felt as though she was breathing easier, sats remained 93% on room air. Vital signs remained stable. IMPRESSION: Congestive heart failure, fluid overload. PLAN: The patient will be placed in observation with the hospitalist. The patient verbalizes understanding. JESSICA DASILVA APRN FOR CAROLYN PACE MD PATIENT'S NAME: FRANCISCO JAVIER BUTLER [facility] AGE: 61 Y [address] ROOM: [place] [address] [place] [facility] [place]: 02/06/2017 ER/Outpatient Report DISCHARGE DATE: 02/10/2017 FAMILY PHYSICIAN: Physician, Unknown ATTENDING PHYSICIAN: Arun Wu/jonah /[id number] d: 02/12/17 0121 t: 03/15/17 0455, OUTPATIENT REPORT
--- NOTE | ~2017-02-06 | DS ---
[facility] 61 [facility] [address] ROOM: [place] [id number] [place]: [facility] [place]MIT DATE: 02/06/2017 Discharge Summary DISCHARGE DATE: 02/10/2017 FAMILY PHYSICIAN: Physician, Unknown ATTENDING PHYSICIAN: Arun Wu PRIMARY DIAGNOSES: 1. Asthma exacerbation. 2. Left lung pneumonia. 3. Acute hypoxic respiratory failure. 4. Diabetes mellitus type 2 with hyperglycemia. 5. Pulmonary hypertension. 6. Chronic cor pulmonale. 7. Deep vein thrombosis on long-term anticoagulation with warfarin. 8. Nocturnal hypoxemia. 9. Coronary artery disease. 10. Chronic kidney disease, stage 3. 11. Morbid obesity. OPERATIONS/PROCEDURES: None. HISTORY OF PRESENTING ILLNESS/REASON FOR ADMISSION: Please refer to the H and P dictated on 02/06/2017. HOSPITAL COURSE: The patient is admitted to the hospital as noted above with a presumptive diagnosis of asthma exacerbation and left lung pneumonia. She was seen and evaluated by Pulmonology who provided assistance with her management over the course of her hospital stay. She did have a broad-spectrum antibiotic therapy and aggressive attention to pulmonary hygiene. She received bronchodilator therapy as well as steroid therapy. Blood sugars were managed with sliding scale insulin and adjustment to her Levemir regimen. She was hemodynamically stable over the course of her hospital stay. Oxygen requirements improved. She did continue to experience persistent cough over the course of her hospital stay and this was treated symptomatically. By the end of the 5th day of her hospital stay, it was felt she would be stable enough for discharge to home with plans for close clinical followup with her primary care provider as well as outpatient followup with Pulmonology, Cardiology, and her primary care physician. DISCHARGE INSTRUCTIONS: PATIENT'S NAME: [facility] AGE: 61 Y [address] ROOM: [address] [address] LOCATION: [facility] [place] ADMIT DATE: 02/06/2017 Discharge Summary DISCHARGE DATE: 02/10/2017 FAMILY PHYSICIAN: Physician, Unknown ATTENDING PHYSICIAN: Arun Wu 1. Diet: Cardiac prudent as tolerated. 2. Activity: As tolerated. MEDICATIONS: 1. Amiodarone 200 mg p.o. daily. 2. Lisinopril 2.5 mg p.o. daily. 3. Aspirin 81 mg p.o. daily. 4. Atorvastatin 10 mg p.o. daily. 5. Bupropion 150 mg p.o. daily. 6. Carvedilol 25 mg p.o. b.i.d. 7. Famotidine 20 mg p.o. daily. 8. Lasix 20 mg p.o. q.a.m. 9. Insulin 5 units subcu q.a.c. with meals. 10. Levemir insulin 10 units subcu q.h.s. 11. Levofloxacin 750 mg p.o. daily x5 more days. 12. Florastor 250 mg p.o. b.i.d. x5 more days. 13. Risperidone 1 mg p.o. b.i.d. 14. Coumadin daily. 15. Albuterol per neb q.4 h. p.r.n. wheezing. 16. Promethazine 25 mg p.o. q.4 h. p.r.n. nausea. 17. Dulcolax 10 mg [place] daily p.r.n. constipation. 18. Zanaflex 4 mg p.o. b.i.d. p.r.n. 19. Dilaudid 1 mg p.o. q.4 h. p.r.n. pain. 20. Oxygen 2 L q.h.s. 21. Nitro p.r.n. 22. Lorazepam 0.5 mg p.o. q.8 h. p.r.n. 23. Prednisone tapering course 40 mg p.o. daily x3 days, then 20 mg p.o. daily x3 days, then 10 mg p.o. daily x4 days, and then stop. FOLLOW UP: She will follow up with Dr. Carrion in 1 month. She will follow up with Dr. Roberts as previously scheduled. She will follow up with Mary Norris with basic metabolic panel in 3 days. CONDITION ON DISCHARGE: Fair. Total time spent on discharge process was 45 minutes. MD CARLYN MITCHELL/modl PATIENT'S NAME: FRANCISCO JAVIER BUTLER [facility] AGE: 61 Y [address] ROOM: [address] [address] LOCATION: [facility] [place] ADMIT DATE: 02/06/2017 Discharge Summary DISCHARGE DATE: 02/10/2017 FAMILY PHYSICIAN: Physician, Unknown ATTENDING PHYSICIAN: Arun Wu /[id number] d: 02/11/17 0424 t: 02/11/17 1650, DISCHARGE SUMMARY
--- NOTE | ~2017-02-06 | HP ---
PATIENT'S NAME: FRANCISCO JAVIER BUTLER [facility] AGE: 61 Y [address] [place]OM: [id number] [address] LOCATION: [facility] ADMIT DATE: 02/06/2017 History & Physical DISCHARGE DATE: FAMILY PHYSICIAN: PHYSICIAN, UNKNOWN ATTENDING PHYSICIAN: TAMEKA CADET DATE OF SERVICE: ADDENDUM: HISTORY AND PHYSICAL ADDENDUM: The patient also says that for the last 2 weeks she has been having this increasing leg edema in the left lower extremity, and just today, she noticed that her right forearm is also a little bit swollen and a little bit tender. The left lower extremity edema is not tender. ALLERGIES: IODINE CONTRAST, PENICILLIN (THE PATIENT SAYS THAT HER THROAT WILL SWELL UP, WHICH IS ANAPHYLAXIS), INFLUENZA VIRUS VACCINE, SEROTONIN ANTAGONIST, IOPANOIC ACID, PROPOXYPHENE, LACTOSE, TRAMADOL, METHYLPHENIDATE, METHADONE, METOCLOPRAMIDE, ZOFRAN, PNEUMOCOCCAL VACCINE, TOMATO, SULFA, MEPERIDINE, COMPAZINE, CODEINE, AND DEMEROL. HOME MEDICATIONS: 1. Albuterol inhalation every 6 hours p.r.n. for shortness of breath or wheezing. 2. Amiodarone 200 mg p.o. b.i.d. 3. Amlodipine 10 mg p.o. daily. 4. Aspirin 81 mg p.o. daily. 5. Lipitor 10 mg p.o. daily. 6. Dulcolax suppository 10 mg per rectum daily p.r.n. for constipation. 7. Wellbutrin XL 150 mg p.o. daily. 8. Coreg 25 mg p.o. b.i.d. 9. Chlorthalidone 12.5 mg p.o. daily. 10. Pepcid 20 mg p.o. daily. 11. Dilaudid 1 mg p.o. every 4 hours p.r.n. for pain. 12. Insulin aspart 5 units subcu 3 times a day with meals. 13. Insulin Levemir 20 units subcu every night at bedtime. 14. Lisinopril 2.5 mg p.o. daily. 15. Nitroglycerin sublingual tablets 0.4 mg every 20 minutes p.r.n. for chest pain. 16. Oxygen nasal cannula 2 L at night at bedtime. 17. Phenergan 25 mg p.o. every 4 hours p.r.n. for nausea or vomiting. 18. Risperidone 1 mg p.o. b.i.d. 19. Zanaflex 4 mg p.o. b.i.d. p.r.n. for muscle spasm. PATIENT'S NAME: FRANCISCO JAVIER BUTLER [facility] AGE: 61 Y [address] ROOM: [place] [address] LOCATION: [facility] ADMIT DATE: 02/06/2017 History & Physical DISCHARGE DATE: FAMILY PHYSICIAN: PHYSICIAN, UNKNOWN ATTENDING PHYSICIAN: TAMEKA CADET 20. Coumadin 5 mg p.o. every day, INR goal 2 to 3 for DVT prophylaxis according to the patient, and the patient wants to stay on the Coumadin. SOCIAL HISTORY: The patient was a former smoker of very few years, very light, according to the patient, when she was in her teenage years, and she quit since she was a teenager, and she has not used cigarette anymore. She denies any alcohol or any illegal drug use. However, she was exposed to a secondhand smoker around her family member for several years. FAMILY HISTORY: Father from a cancer that she could not remember. Mother had diabetes and hypertension. Her brother from myocardial infarction at age 50. PAST SURGICAL HISTORY: 1. Status post CABG in September 2016. 2. Status post cholecystectomy. 3. Status post appendectomy. 4. Status post Marisol fundoplication for hiatal hernia. 5. Status post tonsillectomy. 6. Status post right shoulder surgery. 7. Status post IVC filter placement in the past. 8. Status post port-catheter placement given that the patient is very difficult to get IV access. PHYSICAL EXAMINATION: VITAL SIGNS: At the time of my dictation, temperature 98.1, heart rate 69, respirations 22, blood pressure 148/79, and saturation 97% on 2 L nasal cannula. Pain 0/10. GENERAL APPEARANCE: Alert and oriented x3. In no acute distress. A very pleasant female. HEENT: Pupils are equally round and reactive to light. Extraocular muscles intact. Nasal turbinates are normal bilaterally. Moist oral mucosa. NECK: No JVD. CARDIOVASCULAR: Regular rate and rhythm. No murmur, no rubs, no gallops. Normal S1, S2. RESPIRATORY: Diffuse wheezing bilaterally. No rhonchi, no rales, no crackles. CHEST WALL: Mildly tender to palpation, this is chronic and has not changed. ABDOMEN: Obese, soft, nontender, nondistended, normal bowel sounds, no hepatosplenomegaly. Bowel sounds are present. EXTREMITIES: She has a pitting edema in the left lower extremity and pitting edema in the right upper extremity. In the left lower extremity, it is in her left calf. In the right upper extremity, it is in her right forearm. Mild PATIENT'S NAME: [facility] AGE: 61 Y [address] ROOM: [place] [address] LOCATION: [facility] ADMIT DATE: 02/06/2017 History & Physical DISCHARGE DATE: FAMILY PHYSICIAN: PHYSICIAN, UNKNOWN ATTENDING PHYSICIAN: TAMEKA CADET tenderness to palpation on the right forearm. The left lower extremity edema happened about 2 weeks ago and the right upper extremity edema happened just 1 day ago. NEUROLOGIC: Grossly nonfocal. SKIN: No ulcer, no rash, no cyanosis. MUSCULOSKELETAL: No joint pain. No muscle pain. Range of motion intact. LABORATORY DATA: Lactic acid 1.1. Troponin less than 0.04 the first 2 sets. CPK 86 followed by 90. ProBNP 206 on admission. White blood cells 7.1, hemoglobin 8.5, hematocrit 28.4, MCV 77.4, platelets 270. Glucose 165, BUN 12, creatinine 1.1, sodium 140, potassium 3.4, chloride 103, CO2 of 28, calcium 8.2, total protein 7.3, albumin 2.9, AST 29, ALT 27, alkaline phosphatase 47, total bilirubin 0.1, magnesium pending, anion gap 12.4, GFR 51, globulin 4.4, hemoglobin A1c 8.2, INR 1.66, PTT 39. Influenza antigen screening negative. CK-MB less than 0.05 the first 2 sets. Procalcitonin less than 0.05. IMAGING STUDIES: Chest x-ray on admission, the official reading is pending. Based on my review done on February 06, 2017, at 7:39 p.m., no gross abnormality. Lateral chest x- ray, official reading is pending as well. EKG on admission on February 07, 2017, at 2:15 a.m. shows sinus rhythm with heart rate 67, VA 170 milliseconds, QRS 106 milliseconds, QTc 454 milliseconds. I do appreciate T inversion in lead V2 and V3, which when I compared to the prior EKG back on February 02, 2017, at that time also shows sinus rhythm, heart rate 73 beats per minute, and the T inversion in the lead V2 was also present. V3 at that time had a flat T-wave. ASSESSMENT AND PLAN: 1. Regarding her chronic obstructive pulmonary disease/asthma exacerbation: Probably has viral bronchitis versus community-acquired pneumonia given that the patient came from home: For now, I will continue her with oxygen nasal cannula to keep the saturation more than 90% and give her nebulization with Xopenex plus Atrovent nebulization q.6 hours while awake for 24 hours and then titrate by RT for RSS. In addition, give her Xopenex nebulization q.2 hours p.r.n. per RT for RSS. I will give her Solu-Medrol 125 mg IV x1 and then p.o. prednisone 40 mg p.o. daily. The patient has bilateral diffuse wheezing. In addition, I will continue her p.o. Levaquin for now given that the patient just recently started p.o. Levaquin on February 04, 2017. I will do sputum culture, Gram stain, and also check influenza antigen/nasal swab and also check a urinary antigen for Legionella and pneumococcal. In addition, give her incentive spirometry to use 10 times per hour while awake. I will repeat another chest x-ray in the morning. I will consult our ICU alarm mechanic and assembler and tester electronics, PATIENT'S NAME: FRANCISCO JAVIER BUTLER [facility] AGE: 61 Y [address] ROOM: [id number] [place] [id number] LOCATION: [facility] ADMIT DATE: 02/06/2017 History & Physical DISCHARGE DATE: FAMILY PHYSICIAN: PHYSICIAN, UNKNOWN ATTENDING PHYSICIAN: TAMEKA CADET Dr. to please evaluate the patient in the morning for further management regarding the patient's pulmonary problem. I will also check a D-dimer on her. If it is high, I will proceed with ventilation perfusion scan in the morning given that the patient did require dialysis, temporary, for her acute kidney injury on chronic kidney disease on last admission, and I will be cautious with IV contrast, and in addition, the patient also has IV contrast allergy, iodine contrast allergy listed in her medication allergy list. Currently, the patient is feeling better and further plan will depend on clinical course. 2. Regarding her left lower extremity edema and right upper extremity edema: I will get another order of venous duplex ultrasound of bilateral upper and bilateral lower extremities to rule out any superficial venous thrombosis or deep venous thrombosis. The patient's proBNP is not very impressive, it is minimally high at 206, but given that the patient's body mass index is high, in obesity the proBNP can tend to be falsely low. Given that the patient does have leg edema in the last 2 weeks and at home she takes chlorthalidone, for now I will stop the home chlorthalidone and I will give her IV Lasix 20 mg IV one time instead. I will diurese her very carefully given that the patient did require temporary hemodialysis due to acute kidney injury on chronic kidney disease on last admission. I will hold her home PACO inhibitor given that I am giving her Lasix right now. I will put a Cardiology consult in the morning to please kindly evaluate the patient regarding her questionable [id number] diastolic heart failure. The patient had a recent echo that was performed in October 2016, which showed EF of 55% to 60% with severe pulmonary hypertension of pulmonary pressure of 57.77 mmHg. I will defer to Cardiology to repeat echo or not. Keep cycling cardiac enzymes for now. Replace potassium to keep it above 4, and magnesium will be checked to keep above 2. Further plan depends on clinical course and per Cardiology evaluation in the morning. I will also put her on fluid restriction to less than 1.2 L per day and put a Kang catheter to monitor urine output and strict in's and out's strictly, also daily weight. The patient will have a cardiac diet, it will be less than 2 g of sodium per day and also will have a diabetic diet. 3. Regarding her history of coronary artery disease, status post coronary artery bypass graft in September 2016: Cycle cardiac enzymes. Currently, the 2 sets are negative. EKG, no new ischemic changes. Repeat EKG again in the morning. Continue home medications except PACO inhibitor given that the patient is getting Lasix right now for diuresis. 4. Regarding her hypertension: Continue home medication with holding parameters except that I will stop the p.o. PACO inhibitor in the setting of using IV Lasix for diuresis, to monitor kidney function closely and carefully due to her prior history of a temporary hemodialysis due to acute kidney injury on chronic kidney disease on last admission. 5. Regarding her history of Clostridium difficile: Currently, no loose PATIENT'S NAME: FRANCISCO JAVIER BUTLER [facility] AGE: 61 Y [address] ROOM: [place] [address] LOCATION: [facility] ADMIT DATE: 02/06/2017 History & Physical DISCHARGE DATE: FAMILY PHYSICIAN: PHYSICIAN, UNKNOWN ATTENDING PHYSICIAN: TAMEKA CADET. I will give her p.o. Florastor given that she is getting p.o. Levaquin. 6. Regarding her diabetes type 2: I will put her on sliding scale insulin aspart before meals and at bedtime low dose and titrate as necessary. At home, she uses Levemir 20 units every night; I will cut down by half and titrate as necessary. A1c has been checked already. 7. Regarding her deep vein thrombosis prophylaxis: She is already on Coumadin. Time spent in care on the day of admission 45 minutes including chart review, interviewing the patient, examining the patient, addressing all the questions and concerns the patient had, and going over the plan of care with the patient. I also went over the plan of care with the nurses and also with the patient. Further plan depends on clinical course. Currently, patient does not have any questions. TAMEKA CADET MD CC/modl /[id number] D: 548 T: 510 HISTORY & PHYSICAL
--- NOTE | ~2017-02-06 | PUL ---
PATIENT'S NAME: FRANCISCO JAVIER BUTLER [facility] AGE: 61 Y [address] ROOM: [place] [address] LOCATION: [facility] [place] ADMIT DATE: 02/06/2017 Pulmonary DISCHARGE DATE: 02/10/2017 FAMILY PHYSICIAN: Physician, Unknown ATTENDING PHYSICIAN: Arun Wu NAME OF PROCEDURE: Overnight Pulse Oximetry DATE OF PROCEDURE: February 09 to February 10, 2017 REASON FOR EXAM: Nocturnal hypoxemia RESULTS: The test was performed on room air. The recording time and total valid sampling time were 6 hours, 37 minutes and 32 seconds. The highest pulse was 78, lowest pulse was 57, with a mean pulse of 65. The highest SpO2 was 100%, lowest SpO2 was 73%, with a mean SpO2 of 93.9%. The patient spent 7 minutes and 20 seconds with SpO2 less than 89%, representing 1.8% of the total sleep time. The desaturation event index was mildly elevated at 5.3. PHYSICIAN INTERPRETATION: The patient has mild but significant nocturnal hypoxia and would qualify for supplemental oxygen as per Medicare criteria. MD LIZET WEEKS/sophia /[id number] dtt: 02/11/17 1720 , NED BURCIAGA dtd: 02/11/17 1321
--- NOTE | ~2017-02-06 | ECHO ---
Transthoracic Echocardiography Report (TTE) Demographics Patient Name FRANCISCO JAVIER BUTLER Date of Study 02/09/2017 Patient Number [id number] Visit Number [id number] Date of 1955 Room Number G3201 Gender Female Number Age 61 year(s) Referring Murali Morris Supervisor Specialty Plant Madelaine Knutson, Physician RT,RVT,RDCS Physician Interpreting Alejandra Torres MD Assistant Property Manager Physician Supervising Ordering Murali Morris MD/MLP Physician Nurse Stress Pantry Goods Maker Conclusions Contractility Score Summary At rest the following contractility abnormalities were noted: Hypokinesis of the Mid anterior, the Mid kodak-septal, the Mid infero-septal, the Basal kodak-septal, the Basal infero-septal, the Apical anterior and the Basal anterior segments. Contractility of all other segments appeared normal. Summary The estimated left ventricular ejection fraction is 55% with normal internal dimension, WM despite paradoxical septal motion seondary to prior cardiac surgery.There is mid asymmetric posterior wall hypertrophy. The aortic valve is mildly sclerotic. There is moderate pulmonary hypertension. The pulmonary pressure (RVSP) is 40 mmHg. Procedure Type of Study TTE procedure:2D Echocardiogram, M-Mode, Doppler , Color Doppler. Procedure Date Date: 02/09/2017 Start: 01:57 PM Study Location: Inpatient Portable Technical Quality: Adequate visualization Indications:Chest pain. Additional Indications:Dyspnea Appropriate Use Criteria: 9 Patient Status: Routine HR: 66 bpm BP: 127/77 mmHg Allergies - Other:(iodinated contrast,PCN, sulfa, flu caccinem serotonin 5HT3, zofran, opiods, demerol, iodine, lopanoicarid, prochlorperodine, conddine, propoxyphene, acetominophen, lactose, tramadol,mehylphenidate, methadone, metoclopramide, ondansetron, pneumococcal vaccine, tomato , sulfa, opiods-meperidene and related prochlorperazine, codeine, meperide, hydromorphone). M-Mode/2D Measurements LV Diastolic Dimension: 5.51 cm LV Systolic Dimension: 4.3 cm LV Septum Diastolic: 1.04 cm LV Septum Systolic: 2.04 cm LV PW Diastolic: 1.26 cm LV PW Systolic: 0.78 cm Cardiac Output: 5.8 l/min AO Root Dimension: 2.8 cm LA Dimension: 3.8 cm LA volume: 41 ml LVOT: 2 cm LVOT VTI: 28 cm LV Stroke volume: 87.92 ml Doppler Measurements AV Peak Velocity: 1.64 m/s MV Peak E-Wave: 1.38 m/s AV Peak Gradient: 10.76 mmHg MV Peak A-Wave: 0.71 m/s AV Mean Gradient: 7 mmHg MV E/A Ratio: 1.95 LVOT Peak Velocity: 1.17 m/s MV P1/2t: 76 msec TR Gradient:27.25 mmHg PV Peak Velocity: 1.14 m/s Estimated RAP:10 mmHg PV Peak Gradient: 5.2 mmHg Estimated RVSP: 37 mmHg Estimated PASP: 37.25 mmHg E' Septal Velocity: 0.08 m/s A' Septal Velocity: 0.08 m/s MV E/E' Ratio: 17.7 Findings Left Ventricle Paradoxical septal motion consistent with prior cardiac surgery,Mild posterior wall A[place]O.Normal internal dimension,EF and WM. Right Ventricle Normal right ventricle structure and function. Left Atrium Normal left atrial size. Right Atrium Normal right atrial size. Mitral Valve Normal mitral valve structure and function. Aortic Valve The aortic valve is mildly sclerotic. Tricuspid Valve There is moderate pulmonary hypertension. The pulmonary pressure (RVSP) is 40 mmHg. Pulmonic Valve Normal pulmonic valve structure and function. Pericardial Effusion No evidence of pericardial effusion. Miscellaneous Poor subcostal window for IVC measurement. Pleural Effusion No evidence of pleural effusion. Contractility Score LV regional wall motion:(0-Non visualized 1-Normal 2-Hypokinesis 3-Akinesis 4-Dyskinesis 5-Aneurysm) Signature dtt: Melissa Roberts dtd: 02/09/17 1357 Physician Self Edit
--- NOTE | ~2017-02-06 | HP ---
PATIENT'S NAME: FRANCISCO JAVIER BUTLER [facility] AGE: 61 Y [address] ROOM: [id number] [place], [place] [address] LOCATION: [facility] ADMIT DATE: 02/06/2017 History & Physical DISCHARGE DATE: FAMILY PHYSICIAN: PHYSICIAN, UNKNOWN ATTENDING PHYSICIAN: TAMEKA CADET DATE OF SERVICE: CHIEF COMPLAINT: Productive cough of greenish sputum associated with dyspnea. HISTORY OF PRESENT ILLNESS: This is a 61-year-old -[place] female, who says that she has been having sore throat for the last 2 weeks and also has been having greenish productive cough, sometimes with a small amount but very light tinged sputum likely from the cough, roughly since 1 week ago, at the same time the cough is also associated with some degree of dyspnea. She has also been feeling shivering, and she says that the first day she had a cough, which was a week ago, she had a fever of 101, according to the patient. The symptoms persisted, and she also has been feeling nauseous and few episodes of vomiting since 4 to 5 days ago. She states that the cough happened first and then associated with dyspnea, and then the nausea and vomiting happened 5 days ago. She states that every time she feels sick, she feels nauseous and she vomits, which is not uncommon for the patient. The patient says that the patient recently saw her primary retail advisor and from the cardiac standpoint everything was going well, and the patient was referred to Pulmonology for further evaluation of the shortness of breath and cough. The patient says that she has been told by the primary care physician that the patient has a diagnosis of COPD and asthma. About 5 days ago, the patient was started on prednisone with 40 mg followed by 30 mg, followed by 20 mg, followed by 10 mg, which she finished on , February 05, 2017. At the same time, she was also started on p.o. Levaquin on Thursday, which was on February 04, 2017. Prednisone and Levaquin were started by her primary care physician for bronchitis in the setting of a COPD and asthma. The patient states that yesterday she went to see a dry plasterer for the first time, and upon leaving the office on her way back home, she had several more episodes of nausea and vomiting, and the patient says that she came here for evaluation because of the sore throat that happened since 2 weeks ago, greenish productive cough about 7 days ago, and some chest tightness only when she coughs and also associated with some degree of dyspnea when she coughs also. REVIEW OF SYSTEMS: As mentioned in the history of present illness. All other systems reviewed PATIENT'S NAME: FRANCISCO JAVIER BUTLER [facility] AGE: 61 Y [address] ROOM: [address] [address] LOCATION: [facility] ADMIT DATE: 02/06/2017 History & Physical DISCHARGE DATE: FAMILY PHYSICIAN: PHYSICIAN, UNKNOWN ATTENDING PHYSICIAN: TAMEKA CADET are negative except those mentioned in the history of present illness. PAST MEDICAL HISTORY: 1. CKD stage 3 (she had a history of MYRA on CKD on the previous hospitalization, which required temporary hemodialysis and already resolved). 2. Diabetes type 2. 3. History of coronary artery disease, status post CABG in September 2016. 4. Hypertension. 5. History of C. diff in the past. 6. History of DVT in the past, chronically on Coumadin. The patient states that she takes it for prevention and she is hesitant to stop taking the Coumadin. She is also status post IVC filter placement in the past also. 7. 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 8. Asthma. 9. COPD, on 2 L of oxygen nasal cannula, but she only wears it at night. 10. Questionable sleep apnea, but she wears oxygen 2 L nasal cannula at night. The patient states that she had a sleep study done before and she was told she did not have a sleep apnea, according to the patient. ALLERGIES: DICTATION ENDS HERE TAMEKA CADET MD CC/modl /[id number] D: T: HISTORY & PHYSICAL
--- NOTE | ~2017-02-06 | ENPV ---
Vascular Lower Extremities DVT Study Procedure Demographics Patient Name FRANCISCO JAVIER BUTLER Date of Study 02/07/2017 Patient Number [id number] Gender Female Date of 1955 Age 61 Visit Number [id number] Height Accession Number [id number] Weight Room Number G3201 BSA BMI Referring Jazmin Kiser MD Interpreting Jose Valderrama MD Physician Physician Physician Ordering Jazmin Kiser MD Tuyere Fitter Physician Emergency Room Nurse Madelaine Knutson, RT,RVT,RDCS Conclusions Summary Normal venous duplex examination of the legs bilaterally with normal venous Doppler signals noted throughout. No evidence of thrombophlebitis is noted bilaterally in the deep and superficial veins of the legs. Small calf thrombi cannot be excluded. Procedure Type of Study: Veins:Lower Extremities DVT Study, Lower Extremity Left. Appropriate Use Criteria:9 Allergies - Other:(iodinated contrast,PCN, sulfa, flu caccinem serotonin 5HT3, zofran, opiods, demerol, iodine, lopanoicarid, prochlorperodine, conddine, propoxyphene, acetominophen, lactose, tramadol,mehylphenidate, methadone, metoclopramide, ondansetron, pneumococcal vaccine, tomato , sulfa, opiods-meperidene and related prochlorperazine, codeine, meperide, hydromorphone). Patient Status:Routine. Study Location:Inpatient Portable. Technical Quality:Limited visualization due to body habitus. - Preliminary reported to:MIGEL Doran. Velocities are measured in cm/s ; Diameters are measured in cm Right Lower Extremities DVT Study Measurements Right 2D and Doppler Measurements + + + + +------+------+ + !Location !Visualized!Compressibility!Thrombosis!Signal!Reflux!Reflux ! ! ! ! ! ! ! !(sec) ! + + + + +------+------+ + !Common !Yes !Yes !None ! ! ! ! !Femoral ! ! ! ! ! ! ! + + + + +------+------+ + Left Lower Extremities DVT Study Measurements Left 2D and Doppler Measurements + + + + +------+------+ + !Location !Visualized!Compressibility!Thrombosis!Signal!Reflux!Reflux ! ! ! ! ! ! ! !(sec) ! + + + + +------+------+ + !GSV Thigh !Yes !Yes !None !Phasic!No ! ! + + + + +------+------+ + !Common !Yes !Yes !None !Phasic!No ! ! !Femoral ! ! ! ! ! ! ! + + + + +------+------+ + !Prox !Yes !Yes !None !Phasic!No ! ! !Femoral ! ! ! ! ! ! ! + + + + +------+------+ + !Mid Femoral!Yes !Yes !None !Phasic!No ! ! + + + + +------+------+ + !Dist !Yes !Yes !None !Phasic!No ! ! !Femoral ! ! ! ! ! ! ! + + + + +------+------+ + !Popliteal !Yes !Yes !None !Phasic!No ! ! + + + + +------+------+ + !Gastroc !Yes !Yes !None !Phasic!No ! ! + + + + +------+------+ + !PTV !Yes !Yes !None !Phasic!No ! ! + + + + +------+------+ + !Peroneal !Yes !Yes !None !Phasic!No ! ! + + + + +------+------+ + Impressions Right Impression Common femoral vein imaged for comparison and found to be normal. Left Impression No evidence of deep vein thrombosis in the left lower extremity. There is a vein stent seen in left CFV. Signature dtt: GERTRUDE RIBEIRO dtd: 02/07/17 1426 Physician Self Edit
[2017-02-06 19:58] LABS: HEMATOCRIT 28.4 % (33.0-46.0); HEMOGLOBIN 8.5 g/dL (10.0-15.0); MCH 23.2 pg (27.0-34.0); MCHC 29.9 gm/dL (32.0-36.5); MCV 77.4 fl (83.0-98.0); MPV 9.7 fl (9.4-12.4); PLATELET COUNT 270 K/uL (150-450); RBC 3.67 M/uL (3.50-5.50); RDW-CV 15.9 % (11.9-14.6); WBC 7.1 K/uL (4.0-11.0)
[2017-02-06 20:12] LABS: INR - (THERAPEUTIC) 1.66 (0.92-1.07); PROTIME 17.5 SECONDS (9.8-11.4)
[2017-02-06 20:21] LABS: ALBUMIN 2.9 gm/dL (3.5-5.0); ALK PHOS 47 IU/L (33-138); ALT 27 IU/L (12-78); ANION GAP 12.4 (10.0-19.0); AST 28 IU/L (10-40); BLOOD UREA NITROGEN 12 mg/dL (6-24); CALCIUM 8.2 mg/dL (8.5-10.5); CHLORIDE 103 mMol/L (96-110); CO2 28 mMol/L (22-32); CPK 86 IU/L (21-215); CREATININE 1.1 mg/dL (0.5-1.1); ESTIMATED GFR (MDRD EQUATION) 51; POTASSIUM 3.4 mMol/L (3.7-5.1); SODIUM 140 mMol/L (135-145); TOTAL PROTEIN 7.3 g/dL (6.0-8.4)
[2017-02-06 20:24] LABS: TOTAL BILIRUBIN 0.1 mg/dL (0.0-1.5)
[2017-02-06 20:43] LABS: ABSOLUTE NEUTROPHIL CT (ANC) 3.7 K/uL (1.8-7.8); BANDED NEUTROPHIL # 0.1 K/uL (0.0-0.1); BANDED NEUTROPHILS % 2 %; LYMPHOCYTE # 2.8 K/uL (0.8-4.0); LYMPHOCYTE % 40 %; MONOCYTE # 0.4 K/uL (0.0-1.0); SEGMENTED NEUTROPHIL # 3.6 K/uL (1.8-7.8); SEGMENTED NEUTROPHIL % 50 %
[2017-02-06] MEDS ORDERED: NITROSTAT0.4 MG SL (21:52)
[2017-02-07 02:54] LABS: CPK 90 IU/L (21-215)
--- NOTE | 2017-02-07 05:30 | NUR ---
Significant Event: Patient alert and oriented. Up with stand by assist. Complaints of chest pain/pressure. EKG and enzymes negative. Kang placed and IVP lasix given. 40 meq IV potassium infusing to right chest port. Left leg more edematous than right leg and right arm has area of edema/firmness. Wheezy and short of breath on 2L nasal cannula. 1200 ml fluid restriction. Pleasant and cooperative with cares. Follow up: continue to monitor.
[2017-02-07 08:55] LABS: HEMATOCRIT 29.3 % (33.0-46.0); HEMOGLOBIN 8.7 g/dL (10.0-15.0); MCH 22.8 pg (27.0-34.0); MCHC 29.7 gm/dL (32.0-36.5); MCV 76.7 fl (83.0-98.0); MPV 10.3 fl (9.4-12.4); PLATELET COUNT 278 K/uL (150-450); RBC 3.82 M/uL (3.50-5.50); RDW-CV 15.9 % (11.9-14.6); WBC 4.8 K/uL (4.0-11.0)
[2017-02-07 09:04] LABS: INR - (THERAPEUTIC) 1.86 (0.92-1.07); PROTIME 19.7 SECONDS (9.8-11.4)
[2017-02-07] MEDS ORDERED: ATIVAN 0.5MG0.5 MG PO (09:18)
[2017-02-07] MEDS ORDERED: LEVAQUIN 750 M750 MG PO (09:18)
[2017-02-07 09:26] LABS: CPK 86 IU/L (21-215)
[2017-02-07 09:32] LABS: ABSOLUTE NEUTROPHIL CT (ANC) 3.7 K/uL (1.8-7.8); LYMPHOCYTE % 20 %; MONOCYTE # 0.1 K/uL (0.0-1.0); SEGMENTED NEUTROPHIL # 3.7 K/uL (1.8-7.8); SEGMENTED NEUTROPHIL % 77 %
--- NOTE | 2017-02-07 15:31 | NUR ---
Significant Event:A/O X 3 and cooperative with care. Ambulates with SBA, Expiratory wheezes and increased work of breathing. UP to chair for meals. Showered and shampooed with assist. 3+-4+ edema to left leg. EKG completed. "golf ball sized" hard mass to R) posterior FA. O2 sats > 90% on 2L/NC. Good cough. 3000 ml on incentive spirometer. Sputum culture sent, respiratory panel sent. Chest xray completed. Tolerating ADA, 2 Gram sodium diet. 320 ml in of 1.2L fluid restriction for today. Kang patent, IV Lasix and PO Potassium 40 MeQ given. Insulin correction given for 0700 and 1100, SSI increased to moderate scale. Dr Carrion and Dr Martinez here to see. Reviewed and place AD on chart. Declined Diabetes Management booklet. Follow up:Peripheral vasuclar study of upper and lower extremities, Madelaine notified. Cardiac ECHO. information systems technician declines to come on a weekend. . Non contrast CT of the chest, Bakari plans to take after transfer to [facility].
--- NOTE | 2017-02-07 17:41 | NUR ---
Significant event: Patient is alert and oriented. VSS. ON 2 liters O2 per NC. Exp wheezes throughout. Is stand by assist with walker and gait belt. Kang is patent. Is on strict I&O. Also on a 1200ml fluid restriction. Has had 500 for my total shift. Had IV morphine at 1430 for head and chest pain. has port to righ chest with good blood return. Had a venous doppler on right arm and bilateral legs, they were negative. Is on coumadin, and has a green field filter. Has significant edema to left leg and slight edema to right. Is on an ADA 2 gram diet. Is ACHS on moderate scale. Echo still needs done. Is pleasant and cooperative with cares.
--- NOTE | 2017-02-08 02:50 | NUR ---
Significant Event: Patient's VSS, no fevers. Reports pain in chest and head and recieving Morphine 2 mg IV for this complaint Up with stand-by assist. On a 1200 fluid restrict. Accucheck at HS was 352. Tele with no calls. Alert and orientated, pleasant and coopertive with cares. Kang to DD with adequate urinary output. Follow up: Continue to assess and monitor.
[2017-02-08 04:28] LABS: CALCIUM 9.4 mg/dL (8.5-10.5); CREATININE 1.3 mg/dL (0.5-1.1); MAGNESIUM 2.4 mg/dL (1.8-2.6)
[2017-02-08 04:29] LABS: ANION GAP 11.8 (10.0-19.0); POTASSIUM 4.8 mMol/L (3.7-5.1)
[2017-02-08 04:32] LABS: BASOPHIL % 0.1 %; HEMATOCRIT 27.4 % (33.0-46.0); HEMOGLOBIN 8.3 g/dL (10.0-15.0); IMMATURE GRANULOCYTE % 0.5 %; LYMPHOCYTE # 1.3 K/uL (0.8-4.0); LYMPHOCYTE % 14.7 %; MCH 23.1 pg (27.0-34.0); MCHC 30.3 gm/dL (32.0-36.5); MCV 76.3 fl (83.0-98.0); MONOCYTE # 0.7 K/uL (0.0-1.0); MONOCYTE % 7.4 %; MPV 10.6 fl (9.4-12.4); NEUTROPHIL # (ANC) 6.8 K/uL (1.8-7.8); NEUTROPHIL % 77.3 %; NRBC % 0 /100WBC (0-0.00); PLATELET COUNT 285 K/uL (150-450); RBC 3.59 M/uL (3.50-5.50); RDW-CV 15.9 % (11.9-14.6); WBC 8.8 K/uL (4.0-11.0)
[2017-02-08 15:35] LABS: INR - (THERAPEUTIC) 1.94 (0.92-1.07); PROTIME 20.5 SECONDS (9.8-11.4)
--- NOTE | 2017-02-08 18:32 | NUR ---
Significant event: patient is alert and oriented x3. VSS. On room air throughout the day. Sats 94-95%. Paulson removed at 1500, had 1350 out. COntinues on 1200ml fluid restriction. Has had 600 this shift. Is ACHS, moderate scale, coverage given. Requests morphine routinely for headache and chest discomfort. Is on tele, no calls. Is no strict I&O. Able to use bedside commode. Has port to right chest. Cooperative with cares.
--- NOTE | 2017-02-09 03:18 | NUR ---
Significant Event:Patient voiding well. Continues on a fluid restriction of 1200ml. Taking less pain medication this shift than last night. Last dose at 0207. Has been coughing up alot of phlegm. Lung sounds with wheezes, on 2 liters of 02. Has been up ad-william in room. Follow up: Continue to [facility].
[2017-02-09 05:12] LABS: INR - (THERAPEUTIC) 2.17 (0.92-1.07)
[2017-02-09 05:21] LABS: ANION GAP 13.2 (10.0-19.0); CALCIUM 9.3 mg/dL (8.5-10.5); CREATININE 1.1 mg/dL (0.5-1.1); MAGNESIUM 2.4 mg/dL (1.8-2.6); POTASSIUM 4.2 mMol/L (3.7-5.1)
--- NOTE | 2017-02-09 16:23 | NUR ---
Significant Event: Patient up ad william in room and noted to be steady on her feet. Morphine given twice--last at 1152. Dilaudid PO given at 1632 with results pending. Has eaten good for meals and has been following her fluid restriction. Patient has 350 ml credit that she can have on manager night. Patient also ordered for tessalon perles as needed. Initial dosed them at 1543 for her cough. Morphine discontinued but patient can still have dilaudid orally. Port to right chest-flushes easily and has good blood return. Blood sugars AC/HS. Patient has needed sliding scale for her first 2 blood sugars of the day and will see about supper accucheck shortly. Patient did get up and shower this afternoon. Follow up: Continue to monitor.
--- NOTE | 2017-02-10 02:38 | NUR ---
SIGNIFICANT EVENT: Patient alert &oriented - tearful at times. Ad Rima to SBA in room. Hypertensive at times - 143 to 177 over 78 to 79. Other VSS on RA. Orders are for 2L at HS but overnight Trend Ox in progress - on zero liters O2 per RT. ADA diet, 1200 mL fluid restrict, 2gm sodium. 530 mL in this shift including flushes - leaves 1020 from 0600 today to 0600 on 02/11/17. R) chest port is SL - flushes well with good blood return. Dilaudid x2 - last at 0219. Benadryl x1 - last at approx. 2115. 9 units novolog at HS to cover BG of 335. IV morphine was DC'd yesterday. No Tessalon pearls this shift. Cooperative with cares.
[2017-02-10 05:52] LABS: INR - (THERAPEUTIC) 2.68 (0.92-1.07); PROTIME 28.4 SECONDS (9.8-11.4)
[2017-02-10 05:58] LABS: ANION GAP 9.6 (10.0-19.0); CALCIUM 9.1 mg/dL (8.5-10.5); CREATININE 1.1 mg/dL (0.5-1.1); POTASSIUM 3.6 mMol/L (3.7-5.1)
[2017-02-10] MEDS ORDERED: LASIX20 MG PO (13:28)
[2017-02-10] MEDS ORDERED: FLORASTOR250 MG PO (13:32)
[2017-02-10] MEDS ORDERED: TRANDATE OR NO100 MG PO (13:34)
[2017-02-10] MEDS ORDERED: TESSALON PERLE100 MG PO (13:36)
[2017-02-10] MEDS ORDERED: DELTASONE20 M1 PO (13:37)
--- NOTE | 2017-02-10 14:53 | NUR ---
Patient is AOx3. VSS. R) chest port deaccessed. Blood sugar was 201 at 1100 with 4 units of novolog given. Patient had no questions or concerns about discharge instructions. Patient was wheeled out to ER where her car was parked. Patient drove herself home at 1500.
== END 2017-02-10 15:05 | disposition disaster alternative care site (69) | DRG 190 ==
LOC: GMED 19:04 → GMSU 21:23 → GICU 21:23 → GMSU 02-07 13:29
PROVIDERS: Emergency Medicine; Hospitalist; Nurse Practitioner Family; ADMIT Internal Medicine
DX: J44.0 Chronic obstructive pulmonary disease with (acute) lower respiratory infection (principal); I50.33 Acute on chronic diastolic (congestive) heart failure; J96.01 Acute respiratory failure with hypoxia; J18.9 Pneumonia, unspecified organism; I27.2 Other secondary pulmonary hypertension; I13.0 Hypertensive heart and chronic kidney disease with heart failure and stage 1 through stage 4 chronic kidney disease, or unspecified chronic kidney disease; E11.22 Type 2 diabetes mellitus with diabetic chronic kidney disease; Z99.81 Dependence on supplemental oxygen; N17.9 Acute kidney failure, unspecified; I82.509 Chronic embolism and thrombosis of unspecified deep veins of unspecified lower extremity; N18.3 Chronic kidney disease, stage 3 (moderate); E11.65 Type 2 diabetes mellitus with hyperglycemia; J44.1 Chronic obstructive pulmonary disease with (acute) exacerbation; I25.10 Atherosclerotic heart disease of native coronary artery without angina pectoris; J20.8 Acute bronchitis due to other specified organisms; Z95.1 Presence of aortocoronary bypass graft; G54.0 Brachial plexus disorders; F44.9 Dissociative and conversion disorder, unspecified; I27.81 Cor pulmonale (chronic); Z79.01 Long term (current) use of anticoagulants; Z86.19 Personal history of other infectious and parasitic diseases
CPT/HCPCS: J1170; J1642; J1940; J2270; J2550; J2930; J3480; J7050; J7512; J7612

== ENCOUNTER 2017-04-10 14:55 | Emergency (ER) | payer MEDICARE, MEDICAID ==
--- NOTE | ~2017-04-10 | ER ---
PATIENT'S NAME: [facility] AGE: 61 Y [address] ROOM: [place] [address] LOCATION: [facility] ADMIT DATE: 04/10/2017 ER/Outpatient Report DISCHARGE DATE: 04/10/2017 FAMILY PHYSICIAN: Dirk Flores MD ATTENDING PHYSICIAN: Theo Gutiérrez Time of Evaluation: 1520 hours. CHIEF COMPLAINT: Bilateral low back pain. HISTORY OF PRESENT ILLNESS: The patient is a 61-year-old female, patient of Dr. Flores. The patient presents with a history of 3 days of low back pain, started without any history of injury or overuse. The patient describes it as sharp. She denies any fever, chills; however; she said she has had some vomiting. ALLERGIES: SEE COPIED LIST FROM HER H AND P. CURRENT MEDICATIONS: See her copied list from her previous admission. PREVIOUS MEDICAL HISTORY: Includes coronary artery disease, history of deep vein thrombosis, nocturnal hypoxemia, chronic kidney disease stage 3, morbid obesity, history of asthma, pulmonary hypertension. PAST SURGICAL HISTORY: Includes previous CABG, hysterectomy, appendectomy, cholecystectomy. SOCIAL HISTORY: She lives alone. Nonsmoker. Denies alcohol. REVIEW OF SYSTEMS: GENERAL: Denies fevers or chills. HEENT: No complaints of headache, visual changes, sore throat. RESPIRATORY: Denies cough, wheezing. CARDIOVASCULAR: No chest pain. No heart palpitations. GASTROINTESTINAL: Said she has had some vomiting. Also some loose stools. No significant pain. GENITOURINARY: No burning or frequency. MUSCULOSKELETAL: Negative. PHYSICAL EXAMINATION: VITAL SIGNS: Blood pressure 167/82, her temp is 98.4, respiratory rate 20, PATIENT'S NAME: [facility] AGE: 61 Y [address] ROOM: [place] [address] LOCATION: [facility] ADMIT DATE: 04/10/2017 ER/Outpatient Report DISCHARGE DATE: 04/10/2017 FAMILY PHYSICIAN: Dirk Flores MD ATTENDING PHYSICIAN: Theo Gutiérrez pulse 84, O2 saturations 95%. GENERAL APPEARANCE: Alert and oriented. Did not appear ill. HEAD: Normocephalic. EYES: PERRLA. No icterus. NOSE: Septum midline. MOUTH: Teeth in good repair. Buccal membranes moist. NECK: Supple. No adenopathy. LUNGS: Good breath sounds bilaterally. HEART: Regular rhythm. No murmur. ABDOMEN: Slightly tender. She is obese. Active bowel sounds. EXTREMITIES: No clubbing or cyanosis. BACK: She has some tenderness over the paralumbar muscle groups bilaterally. No central spine tenderness. Range of motion appeared normal. NEUROLOGIC: She has good sensation peripherally. LABORATORY DATA AND X-RAYS: Urine: Negative nitrite, she had positive leukocytes. Her micro showed 2-5 white cells, negative red cells, 2-5 epithelials, negative bacteria. CMS: Potassium slightly low at 3.1, which she says she runs a low potassium; her glucose was 152. ASSESSMENT: 1. Bilateral low back pain. 2. Insulin-dependent diabetes. 3. Obesity. 4. Coronary artery disease, previous bypass graft surgery. 5. History of asthma. 6. Hypokalemia. PLAN: The patient was given a script for Zofran 4 mg, take one every 6 hours; Mckenna for pain, 5/325, one to two every 6 hours, 15 prescribed. Recommend to use some heat to her back. Try to be up and moving around as much as possible. See Dr. Flores on Thursday if not improving or return to the emergency room if she develops fever or any concerns. The patient verbalized understanding of her take home instructions. ELIZA FITZGERALD FOR MD CAMERON RENEE/jonah PATIENT'S NAME: FRANCISCO JAVIER BUTLER [facility] AGE: 61 Y [address] ROOM: [place] [address] LOCATION: [facility] ADMIT DATE: 04/10/2017 ER/Outpatient Report DISCHARGE DATE: 04/10/2017 FAMILY PHYSICIAN: Dirk Flores MD ATTENDING PHYSICIAN: Theo Gutiérrez /[id number] d: 04/11/17 0032 t: 07/22/17 1233, OUTPATIENT REPORT
[~2017-04-10 14:55] MED LIST changes: +ATIVAN 0.5MG0.5 MG PO; +DELTASONE20 M1 PO; +FLORASTOR250 MG PO; +LASIX20 MG PO; +LEVAQUIN 750 M750 MG PO; +TRANDATE OR NO100 MG PO
[2017-04-10 15:40] LABS: BILIRUBIN URINE NEGATIVE (NEGATIVE); BLOOD URINE NEGATIVE /UL (NEGATIVE); COLOR URINE YELLOW (YELLOW); GLUCOSE URINE NEGATIVE (NEGATIVE); KETONE URINE NEGATIVE (NEGATIVE); LEUKOCYTES URINE 25 /UL (NEGATIVE); NITRITE URINE NEGATIVE (NEGATIVE); PROTEIN URINE NEGATIVE (NEGATIVE); SPEC GRAVITY URINE 1.015 (1.003-1.035); TURBIDITY URINE CLEAR (CLEAR); UROBILINOGEN URINE NORMAL (NORMAL)
[2017-04-10 15:47] LABS: RBC URINE NEGATIVE #/HPF (NEGATIVE)
[2017-04-10 15:48] LABS: BACTERIA URINE NEGATIVE (NEGATIVE); HYALINE CAST URINE 0-2 #/LPF (NEGATIVE)
[2017-04-10 16:06] LABS: BASOPHIL # 0.1 K/uL (0.0-0.2); BASOPHIL % 0.8 %; EOSINOPHIL # 0.3 K/uL (0.0-0.5); EOSINOPHIL % 3.4 %; IMMATURE GRANULOCYTE % 0.1 %; LYMPHOCYTE # 2.3 K/uL (0.8-4.0); LYMPHOCYTE % 29.5 %; MCH 23.3 pg (27.0-34.0); MCV 76.9 fl (83.0-98.0); MONOCYTE # 0.9 K/uL (0.0-1.0); MONOCYTE % 11.6 %; MPV 9.7 fl (9.4-12.4); NEUTROPHIL # (ANC) 4.3 K/uL (1.8-7.8); NEUTROPHIL % 54.6 %; NRBC % 0 /100WBC (0-0.00); PLATELET COUNT 292 K/uL (150-450); RBC 4.29 M/uL (3.50-5.50); WBC 7.9 K/uL (4.0-11.0)
[2017-04-10 16:08] LABS: MCHC 30.3 gm/dL (32.0-36.5)
[2017-04-10 16:25] LABS: ALBUMIN 3.2 gm/dL (3.5-5.0); ANION GAP 11.1 (10.0-19.0); CALCIUM 8.4 mg/dL (8.5-10.5); CREATININE 1.1 mg/dL (0.5-1.1); POTASSIUM 3.1 mMol/L (3.7-5.1); TOTAL BILIRUBIN 0.3 mg/dL (0.0-1.5); TOTAL PROTEIN 7.8 g/dL (6.0-8.4)
== END 2017-04-10 17:01 | disposition disaster alternative care site (69) ==
LOC: GMED 14:55
PROVIDERS: Emergency Medicine
DX: M54.5 Low back pain (principal); E11.22 Type 2 diabetes mellitus with diabetic chronic kidney disease; N18.3 Chronic kidney disease, stage 3 (moderate); I27.2 Other secondary pulmonary hypertension; E87.6 Hypokalemia; E66.9 Obesity, unspecified; Z90.49 Acquired absence of other specified parts of digestive tract; Z90.89 Acquired absence of other organs; Z90.710 Acquired absence of both cervix and uterus; Z95.1 Presence of aortocoronary bypass graft; Z86.718 Personal history of other venous thrombosis and embolism

== ENCOUNTER 2017-04-16 09:36 | Observation (INO) | payer MEDICARE, MEDICAID ==
[~2017-04-16] VITALS: Ht 154.9 cm; Wt 112.8 kg
--- NOTE | ~2017-04-16 | DS ---
PATIENT'S NAME: FRANCISCO JAVIER BUTLER [facility] AGE: 62 Y [address] ROOM: [id number] [place], [place] [address] LOCATION: G3N ADMIT DATE: 04/16/2017 Discharge Summary DISCHARGE DATE: 04/17/2017 FAMILY PHYSICIAN: Cristino Flores MD ATTENDING PHYSICIAN: Cristino Flores FINAL/DISCHARGE DIAGNOSES: 1. Low back pain secondary to ruptured disk at L5-S1. 2. Morbid exogenous obesity. 3. Diabetes mellitus, type 2. 4. Known carotid disease. 5. Status post coronary artery bypass graft and valve surgery. 6. Chronic anticoagulation. 7. Chronic mood disorder. 8. Hyperlipidemia. 9. Low-grade asthma and chronic obstructive pulmonary disease. HOSPITAL COURSE: This patient was admitted for low back pain that was unresponsive to outpatient measures. She had an MRI after admission here that showed a ruptured disk at L5-S1, but no other complicating feature. Because of the patient's pain, MRI findings, and general condition, I asked for a consultation from Dr. Efra Wakefield, spine surgeon. Please see his progress notes in the chart and dictation. Dr. Wakefield examined the patient, reviewed her MRI, and gave recommendations. The patient right now is not ready for an epidural; one, because she does not want one and the second, because she is on warfarin. She decides to proceed. We will work through weaning her warfarin down and possibly bridge therapy with Lovenox to get an epidural, and second, Dr. Wakefield does not feel she is a surgical candidate at this time or does the patient wants surgery at this time of her back. Lastly in review of the rest of workup here was unremarkable. I will follow her back in the office in a month. She is dismissed on the medication list shown. If she has increasing pains or severe problems, she will see us back earlier. I told her I would not continue to supply morphine for her, but rather refilled her [place] 10/325, #30 and she will have to make do with that 1 tablet 3 or 4 times a day and she understands that and verbalized that. CRISTINO FLORES MD PAD MACHINE OFFBEARER/modl PATIENT'S NAME: FRANCISCO JAVIER BUTLER [facility] AGE: 62 Y [address] ROOM: [place] [address] LOCATION: [facility] ADMIT DATE: 04/16/2017 Discharge Summary DISCHARGE DATE: 04/17/2017 FAMILY PHYSICIAN: Cristino Flores MD ATTENDING PHYSICIAN: Cristino Flores /[id number] d: 04/17/171953 t: 04/29/17 1732, DISCHARGE SUMMARY
--- NOTE | ~2017-04-16 | CON ---
PATIENT'S NAME: FRANCISCO JAVIER BUTLER [facility] AGE: 62 Y [address] ROOM: [address] [place], [place] [address] LOCATION: G3N ADMIT DATE: 04/16/2017 Consultation DISCHARGE DATE: FAMILY PHYSICIAN: RCISTINO VELEZ MD ATTENDING PHYSICIAN: CRISTINO VELEZ DATE OF CONSULTATION: 04/16/2017 REFERRING PHYSICIAN: Efra Ramírez MD The patient was evaluated at 02:45 in the afternoon on April 16. HISTORY OF PRESENT ILLNESS: Ms. Butler is a 62-year-old, obese, black, diabetic with chronic back pain. 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 She ran out narcotics last week and her pain increased and she was in the hospital. She reports when she takes the narcotics, she is able to walk 3 to 4 miles per day. She can live with her back pain during the day. It does wake her up some at night. She has bilateral buttock pain, but no pain radiating below the knees on either side. She has diabetes with some peripheral neuropathy and some numbness, but no true weakness. No loss of bowel or bladder control. She reports she did have infection about her sternotomy, but the skin eventually healed and no active drainage at this time. No other known infections. No known cancers. Does not do an exercise program. She was tried on gabapentin in the past. She reports that it caused some GI upset at a low-dose and never really gave it a good trial. She is on Coumadin for blood clots. MEDICATIONS: Normally takes morphine at home. She is on Coumadin for blood clots. See her list for other medications. ALLERGIES: A LONG LIST OF MEDICATIONS THAT SHE IS ALLERGIC TO, BUT NOT ALLERGIC TO NEURONTIN OR LYRICA. 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 She is obese. Hypertension. Does not smoke at this time. She did smoke in the past. No alcohol. No IV drug abuse. REVIEW OF SYSTEMS: As above. PATIENT'S NAME: FRANCISCO JAVIER BUTLER [facility] AGE: 62 Y [address] ROOM: [address] [place], [place] [address] LOCATION: [facility] ADMIT DATE: 04/16/2017 Consultation DISCHARGE DATE: FAMILY PHYSICIAN: CRISTINO VELEZ MD ATTENDING PHYSICIAN: CRISTINO VELEZ FAMILY MEDICAL HISTORY: Remarkable for coronary artery disease, diabetes, and cancer. PERSONAL AND SOCIAL HISTORY: Lives in [place]. Lives by herself. She is able to walk normally 3 to 4 miles per day. PHYSICAL EXAMINATION: GENERAL: Black female, in no acute distress. VITAL SIGNS: Reports her height is 5 feet and 1 inch and she weighs 244 pounds. HEENT: She hears and sees. NECK: Nontender. BACK: Mildly tender. PELVIS: Stable. Hips move without pain. HEART: Pulse rate is regular. CHEST WALL: Minimal tenderness over her sternum. Wounds are healed. ABDOMEN: Obese. Nontender. NEUROLOGIC: Some numbness in both feet. Motor Strength: Full strength in the iliopsoas, quads, anterior tib, and gastrocs bilaterally. Normal tone. Nerve tension testing, no tenderness over either lateral femoral cutaneous nerve. Bowstring test is negative bilaterally. Straight leg raise test is negative bilaterally. VASCULAR: Mild edema of both feet. INTEGUMENT: Intact. DIAGNOSTIC DATA: MRI of the lumbar spine: There is no fracture. Normal lordosis. Disk space heights are largely maintained. There is degeneration most marked of the L5- S1 level with a small annular tear and central protrusion. No stenosis. There is no evidence for diskitis. No epidural abscess. CT scan of the thoracic spine shows nonunited sternum and also ankylosis of the mid thoracic levels in a normal kyphotic alignment from diffuse idiopathic skeletal hyperostosis. No fractures of the thoracic spine on the CT scan. ASSESSMENT AND PLAN: Chronic back pain, has been treating with narcotics, but still has pain that wakes her at night. Screening laboratory tests including a white blood count, sedimentation rate, and urine are unremarkable. We will order a serum protein electrophoresis. We will try Lyrica. We have Physical Therapy to teach her home exercise program. If she is still unable to break through her pain, would go off the Coumadin and try lumbar epidural steroid injection. Certainly surgery would be a last resort, but more likely not the L5-S1 levels PATIENT'S NAME: FRANCISCO JAVIER BUTLER [facility] AGE: 62 Y [address] ROOM: [address] [address] LOCATION: [facility] ADMIT DATE: 04/16/2017 Consultation DISCHARGE DATE: FAMILY PHYSICIAN: CRISTINO VELEZ MD ATTENDING PHYSICIAN: CRISTINO VELEZ are source for pain and fusion could be a consideration. Conservative care in her case as best as possible. We have also ordered upright x-rays of the lumbar spine and flexion-extension views to rule out any unrecognized instability. EFRA RAMÍREZ MD DPM/jonah /[id number] d: 04/16/17 2309 t: 04/17/17 0753, CONSULTATION REPORT
[2017-04-16 11:00] LABS: BILIRUBIN URINE NEGATIVE (NEGATIVE); BLOOD URINE NEGATIVE /UL (NEGATIVE); COLOR URINE STRAW (YELLOW); GLUCOSE URINE NEGATIVE (NEGATIVE); KETONE URINE NEGATIVE (NEGATIVE); LEUKOCYTES URINE NEGATIVE /UL (NEGATIVE); NITRITE URINE NEGATIVE (NEGATIVE); PROTEIN URINE 30 mg/dL (NEGATIVE); SPEC GRAVITY URINE 1.005 (1.003-1.035); TURBIDITY URINE CLEAR (CLEAR); UROBILINOGEN URINE NORMAL (NORMAL)
[2017-04-16 11:15] LABS: RBC URINE RARE #/HPF (NEGATIVE); WBC URINE 0-2 #/HPF (NEGATIVE)
[2017-04-16 11:16] LABS: BACTERIA URINE NEGATIVE (NEGATIVE)
[2017-04-16 12:03] LABS: BASOPHIL # 0.1 K/uL (0.0-0.2); BASOPHIL % 0.9 %; EOSINOPHIL # 0.2 K/uL (0.0-0.5); EOSINOPHIL % 2.4 %; HEMATOCRIT 34.5 % (33.0-46.0); HEMOGLOBIN 10.7 g/dL (10.0-15.0); IMMATURE GRANULOCYTE % 0.3 %; LYMPHOCYTE # 2.2 K/uL (0.8-4.0); LYMPHOCYTE % 30.9 %; MCH 23.8 pg (27.0-34.0); MCV 76.8 fl (83.0-98.0); MONOCYTE # 0.7 K/uL (0.0-1.0); MONOCYTE % 9.3 %; MPV 9.9 fl (9.4-12.4); NEUTROPHIL # (ANC) 3.9 K/uL (1.8-7.8); NEUTROPHIL % 56.2 %; NRBC % 0 /100WBC (0-0.00); PLATELET COUNT 279 K/uL (150-450); RBC 4.49 M/uL (3.50-5.50); RDW-CV 19.8 % (11.9-14.6)
[2017-04-16 12:25] LABS: ALBUMIN 3.1 gm/dL (3.5-5.0); ALK PHOS 44 IU/L (33-138); ALT 21 IU/L (12-78); ANION GAP 10.4 (10.0-19.0); AST 22 IU/L (10-40); BLOOD UREA NITROGEN 12 mg/dL (6-24); CALCIUM 8.7 mg/dL (8.5-10.5); CHLORIDE 105 mMol/L (96-110); CO2 28 mMol/L (22-32); CREATININE 0.9 mg/dL (0.5-1.1); POTASSIUM 3.4 mMol/L (3.7-5.1); SODIUM 140 mMol/L (135-145); TOTAL BILIRUBIN 0.3 mg/dL (0.0-1.5); TOTAL PROTEIN 7.7 g/dL (6.0-8.4)
[2017-04-16] MEDS ORDERED: ALBUTEROL2.5 MG/31 INH (15:16)
[2017-04-16] MEDS ORDERED: DEMADEX20 MG PO (15:20)
[2017-04-16] MEDS ORDERED: COZAAR100 MG PO (15:21)
[2017-04-16] MEDS ORDERED: HYGROTON25 MG PO (15:21)
[2017-04-16] MEDS ORDERED: PROVENTIL OR V6.7 GM INH (15:22)
[2017-04-16] MEDS ORDERED: K-TAB ER20 MEQ PO (15:22)
[2017-04-16] MEDS ORDERED: APRESOLINE50 MG PO (15:22)
[2017-04-16] MEDS ORDERED: VITAMIN D5000 UNI1 PO (15:26)
[2017-04-17] MEDS ORDERED: NORCO 10-325 T1 EACH PO (09:12)
== END 2017-04-17 17:23 | disposition disaster alternative care site (69) ==
LOC: G3N 09:36
PROVIDERS: ADMIT Family Medicine
DX: M51.17 Intervertebral disc disorders with radiculopathy, lumbosacral region (principal); G89.29 Other chronic pain; E11.9 Type 2 diabetes mellitus without complications; E78.5 Hyperlipidemia, unspecified; I25.10 Atherosclerotic heart disease of native coronary artery without angina pectoris; J44.9 Chronic obstructive pulmonary disease, unspecified; Z79.01 Long term (current) use of anticoagulants; Z95.1 Presence of aortocoronary bypass graft; F39 Unspecified mood [affective] disorder; Z79.4 Long term (current) use of insulin; E66.09 Other obesity due to excess calories; Z68.35 Body mass index [BMI] 35.0-35.9, adult; Z79.899 Other long term (current) drug therapy
CPT/HCPCS: G0378; G0379; G8978; G8979; G8980; G8981; G8982; G8983; J1642; J1885; J2270; J2550

== ENCOUNTER 2017-04-22 10:00 | Inpatient (IN) | payer MEDICARE, MEDICAID ==
[~2017-04-22] VITALS: Ht 154.9 cm; Wt 114.1 kg
--- NOTE | ~2017-04-22 | CON ---
PATIENT'S NAME: FRANCISCO JAVIER BUTLER [facility] AGE: 62 Y [address] ROOM: [address] [address] LOCATION: GPCU ADMIT DATE: 04/22/2017 Consultation DISCHARGE DATE: FAMILY PHYSICIAN: Mary Norris MD ATTENDING PHYSICIAN: Melissa Roberts DATE OF CONSULTATION: 04/24/2017 CHIEF COMPLAINT/REASON FOR CONSULTATION: Medical management in the setting of acute coronary syndrome. HISTORY OF PRESENTING ILLNESS: This 62-year-old female with a longstanding history of coronary artery disease, diabetes mellitus type 2, and obesity was admitted to [facility] on 04/22/[address] Roberts. She has undergone fairly extensive cardiac evaluation including laboratory evaluation, serial enzymes, telemetry monitoring, and cardiac catheterization as of today. Following the procedure, she has been transferred back to the floor. Presently, she complains of pain in the leg. She also reports generalized pain as well as chills. She is nauseated, but has not vomited. She denies significant chest pain. Denies benton abdominal pain. She denies numbness, tingling, weakness in her extremities or any associated physical or constitutional complaints. She reports she has been compliant with her medications. ALLERGIES: MULTIPLE. IODINATED CONTRAST, PENICILLIN, INFLUENZA VIRUS, SEROTONIN ANTAGONIST, LISINOPRIL, IODINE, IOPANOIC ACID, TEMAZEPAM, OXYCODONE, PROPOXYPHENE, LABETALOL, DOXYCYCLINE, METRONIDAZOLE, ADHESIVE, AMLODIPINE, FENOFIBRATE, TRAMADOL, BUDESONIDE, METFORMIN, METHYLPHENIDATE, METHADONE, METOCLOPRAMIDE, ONDANSETRON, FORMOTEROL, INSULIN LISPRO, PNEUMOCOCCAL VACCINE, DULOXETINE, TOMATO, SULFA, OPIOIDS, PROCHLORPERAZINE, CODEINE, MEPERIDINE. ILLNESSES: 1. Coronary artery disease status post coronary artery bypass grafting. 2. DVT. 3. Essential hypertension. 4. Hyperlipidemia. 5. Morbid obesity. 6. Gastroesophageal reflux disease status post Marisol fundoplication. 7. Status post [place] filter placement. 8. Nephrolithiasis. 9. Depression. 10. Asthma. PATIENT'S NAME: FRANCISCO JAVIER BUTLER [facility] AGE: 62 Y [address] ROOM: [id number] [place], [place] [address] [facility] ADMIT DATE: 04/22/2017 Consultation DISCHARGE DATE: FAMILY PHYSICIAN: Mary Norris MD ATTENDING PHYSICIAN: Melissa Roberts 11. Osteoporosis. CURRENT MEDICATIONS: 1. Aspirin 81 mg p.o. daily. 2. Lipitor 80 mg p.o. daily. 3. Bupropion 150 mg p.o. daily. 4. Carvedilol 12.5 mg p.o. b.i.d. 5. Chlorthalidone 12.5 mg p.o. daily. 6. Vitamin D3 5000 units p.o. daily. 7. Pepcid 20 mg p.o. daily. 8. Hydralazine 50 mg p.o. b.i.d. 9. Insulin NovoLog per mild sliding scale and 5 units subcu q.a.c. 10. Insulin Levemir 15 units subcu at bedtime. 11. Losartan 50 mg p.o. daily. 12. Potassium 20 mEq p.o. b.i.d. 13. Risperidone 1 mg p.o. b.i.d. 14. Torsemide 20 mg p.o. q.a.m. 15. Albuterol per nebulizer q.6 hours p.r.n. 16. Acetaminophen 650 mg p.o. q.4 hours p.r.n. 17. Benadryl 25 mg p.o. q.h.s. p.r.n. insomnia. 18. Glucagon 1 mg subcu p.r.n. hypoglycemia. 19. Glucose 16 g p.o. p.r.n. hypoglycemia. 20. Lorazepam 0.5 mg p.o. q.8 hours p.r.n. anxiety. 21. Morphine 2 to 4 mg IV q.5 minutes p.r.n. chest pain. 22. Nitroglycerin p.r.n. 23. Zofran 4 mg IV q.4 hours p.r.n. nausea. 24. Phenergan 25 mg p.o. q.4 hours p.r.n. nausea. 25. Zanaflex 4 mg p.o. b.i.d. 26. Ambien 5 to 10 mg p.o. q.h.s. p.r.n. insomnia. 27. Proventil HFA 2 puffs p.o. q.i.d. p.r.n. 28. Albuterol per nebulizer q.4 hours p.r.n. wheezing or dyspnea. FAMILY HISTORY: Significant for cancer in her father. Mother had diabetes and hypertension. SOCIAL HISTORY: She has a 10 to 15 pack year history of smoking tobacco, but has been quit for many years. She denies any significant alcohol or illicit drug use. REVIEW OF SYSTEMS: As per HPI. All other organ systems reviewed and are negative. OBJECTIVE: VITAL SIGNS: Temperature 98.2, pulse 75, respirations 17, blood pressure 142/63. Weight is 114.2 kilos that is up from 110 kilos in January. PATIENT'S NAME: FRANCISCO JAVIER BUTLER [facility] AGE: 62 Y [address] ROOM: [place] [address] [facility] ADMIT DATE: 04/22/2017 Consultation DISCHARGE DATE: FAMILY PHYSICIAN: Mary Norris MD ATTENDING PHYSICIAN: Melissa Roberts GENERAL: She is anxious, cooperative, lying in the bed, in no acute distress. She does demonstrate some intermittent rigors. SKIN: Supple, brown, warm, dry. No obvious rashes. HEENT: Otherwise, normocephalic. Sclerae nonicteric. Pupils equal, round, and reactive to light and accommodation. Extraocular movements appear intact. Nasal turbinates normal in appearance. Oropharynx clear. Mucous membranes are pink and moist. NECK: Supple. Plethoric and obese. No masses or adenopathy. No thyromegaly. No JVD. CHEST: Wall is symmetrical. HEART: Regular. LUNGS: Diminished at the bases. No crackles or wheezes are heard. ABDOMEN: Soft and obese. Nontender. Bowel sounds present. No mass or hepatosplenomegaly. AND RECTAL: Not done. EXTREMITIES: Display trace to 1+ pitting edema. No cyanosis. NEUROLOGIC: Rigors but no focal deficits. LABORATORY AND X-RAY DATA: PTT was 74 today. Accu-Cheks range 146 to 230 in the last 24 hours. ASSESSMENT AND PLAN: 1. Diabetes mellitus type 2. Suboptimal control. We will titrate the Levemir. We will continue to monitor with Accu-Cheks and utilize sliding scale insulin. Also, continue with a mealtime insulin and make adjustments depending on her clinical progress. 2. Essential hypertension. Appears to be adequately controlled. We will monitor the trend and make adjustments as necessary. 3. Coronary artery disease. We will await cath report per Dr. Roberts and recommendations. We will continue with Medical management including aspirin therapy, statin therapy, and beta-kory therapy. 4. Acute hypoxic respiratory failure, mild. Suspect this is related to hypoventilation and obesity. Encourage mobilization and encourage good pulmonary hygiene. 5. Paroxysmal atrial fibrillation. Appears rate controlled stable. Currently, in sinus rhythm. 6. Deep venous thrombosis status post [place] filter placement. Stable not on long-term anticoagulation. We will continue to monitor. 7. Morbid obesity. We will need to work on long-term strategies for weight loss including balance, dietary intake, increased exercise, reduced calories, etc. 8. Nausea intermittent. Continue with symptomatic measures. 9. Deep venous thrombosis prophylaxis. We will follow the venous thromboembolism protocol. PATIENT'S NAME: FRANCISCO JAVIER BUTLER [facility] AGE: 62 Y [address] ROOM: [place] [address] LOCATION: GPCU ADMIT DATE: 04/22/2017 Consultation DISCHARGE DATE: FAMILY PHYSICIAN: Mary Norris MD ATTENDING PHYSICIAN: Melissa Roberts MD CARLYN MITCHELL/modl /[id number] d: 04/24/172 t: 04/25/17 1151, CONSULTATION REPORT
--- NOTE | ~2017-04-22 | DS ---
PATIENT'S NAME: [facility] AGE: 62 Y [address] ROOM: [place] [address] LOCATION: GPCU ADMIT DATE: 04/25/2017 Discharge Summary DISCHARGE DATE: 04/28/2017 FAMILY PHYSICIAN: Mary Norris MD ATTENDING PHYSICIAN: Melissa Roberts DISCHARGE DIAGNOSES: 1. Atypical chest pain with significant chest wall tenderness. 2. Abnormal stress test indicating a fixed defect involving the basal half of the lateral wall. LVEDP is elevated at 18. Her catheterization showed two of the three bypasses to be open. Her circumflex graft was closed and the circ lesion had IFR of 0.94. 3. Normal ejection fraction. 4. Edema. 5. Diabetes. 6. Hypertension. 7. Chronic oral anticoagulation for DVT and pulmonary embolism. 8. Morbid obesity. 9. Asthma. 10. Hyperlipidemia. 11. Gastroesophageal reflux disease with history of Marisol fundoplication. 12. Anemia. 13. Status post [place] filter placement. 14. Nephrolithiasis. DISCHARGE MEDICATIONS: 1. Aspirin 81 mg a day. 2. Atorvastatin 80 mg a day. 3. Wellbutrin XL 150 mg every day. 4. Carvedilol 12.5 twice a day. 5. Vitamin D3 5000 units once a day. 6. Pepcid 40 mg a day. 7. Ferrous sulfate 325 mg twice a day. 8. Hydralazine 50 mg twice a day. 9. Insulin NovoLog FlexPen 5 units subcutaneous three times a day with meals. 10. Levemir 20 units every night at bedtime. 11. Isosorbide mononitrate 60 mg a day. 12. Losartan and hydrochlorothiazide 100 mg once a day. 13. Meclizine 12.5 mg t.i.d. p.r.n. 14. Potassium chloride 20 mEq twice a day. 15. Risperdal 1 mg twice a day. 16. Torsemide 20 mg a day. 17. Chlorthalidone 12.5 mg a day. 18. Warfarin 4 mg every day. PATIENT'S NAME: [facility] AGE: 62 Y [address] ROOM: [place] [address] LOCATION: GPCU ADMIT DATE: 04/25/2017 Discharge Summary DISCHARGE DATE: 04/28/2017 FAMILY PHYSICIAN: Mary Norris MD ATTENDING PHYSICIAN: Melissa Roberts 19. Albuterol sulfate nebulizer treatment every 6 hours and p.r.n. 20. Lorazepam 0.5 mg every 8 hours p.r.n. 21. Phenergan 25 mg every 4 hours as needed. 22. Zanaflex 4 mg twice a day p.r.n. 23. Oxygen. 24. Nitroglycerin 0.4 mg sublingual p.r.n. 25. CoQ10 200 mg once a day. 26. Atorvastatin 80 mg once a day. 27. Morphine p.o. per Dr. Mary Norris. ALLERGIES: IODINATED CONTRAST ORAL AND IV, PENICILLIN, INFLUENZA VACCINE, SEROTONIN ANTAGONIST, LISINOPRIL, IODINE, IOPANOIC ACID, TEMAZEPAM, OXYCODONE, PROPOXYPHENE, LABETALOL, DOXYCYCLINE, METRONIDAZOLE, ADHESIVE TAPE, AMLODIPINE, FENOFIBRATE, TRAMADOL, BUDESONIDE, METFORMIN, METHYLPHENIDATE, METHADONE, METOCLOPRAMIDE, ONDANSETRON, FORMOTEROL, INSULIN LISPRO, PNEUMOCOCCAL VACCINE, DULOXETINE, TOMATO, SULFA, OPIOIDS LIKE MEPERIDINE, PROCHLORPERAZINE, CODEINE. PROCEDURES DONE: 1. Stress test. 2. Cardiac catheterization. Primarily a left heart catheterization. COURSE IN THE HOSPITAL: After hospitalization for left-sided atypical chest pain, during which time, she was found to have significant chest wall tenderness, the patient underwent stress test after ruling out. Her stress test showed basal 3rd of her lateral wall, had a fixed defect. Reviewing her cath film, it was clear that the lesion in the circumflex that probably was not stented. She underwent cardiac catheterization, was noted to have occlusion of her vein graft to the obtuse marginal. However IFR to this vessel was 0.94. So, medical treatment was advocated and she continued to have constant continuous pains in her chest and is very clear that chest pain was from the chest wall area. Hot compresses and heating pad seemed to help the best. Before her discharge, she had a spell of vertigo which was helped by taking Antivert 12.5 mg. The patient was discharged home with instructions to use a heating pad and as well as the above recommended medications. She will be followed up as an outpatient shortly. She was sent home on 1800 calorie diet. She will also have normally activities as tolerated for now. Once her chest pain improves a little bit, we will get her started on a regular structured exercise program again. Again, I appreciate this opportunity to participate in the care of Ms Butler. PATIENT'S NAME: FRANCISCO JAVIER BUTLER [facility] AGE: 62 Y [address] ROOM: [address] [address] [facility] ADMIT DATE: 04/25/2017 Discharge Summary DISCHARGE DATE: 04/28/2017 FAMILY PHYSICIAN: Mary Norris MD ATTENDING PHYSICIAN: Melissa Roberts MD ZACH ALEJANDRO/jonah /[id number] d: 05/13/17 1307 t: 05/25/17 0801, DISCHARGE SUMMARY
--- NOTE | ~2017-04-22 | HP ---
PATIENT'S NAME: SHENA BUTLER [facility] AGE: 62 Y [address] ROOM: [address] [place], [place] [address] LOCATION: GPCU ADMIT DATE: 04/22/2017 History & Physical DISCHARGE DATE: FAMILY PHYSICIAN: PHYSICIAN, UNKNOWN ATTENDING PHYSICIAN: Melissa Roberts DATE OF SERVICE: HISTORY OF PRESENT ILLNESS: Shena is a 62-year-old female patient who has not been feeling well lately. The patient underwent bypass grafting during the 1st part of this year. She has prior history of elevated hypertension, uncontrolled diabetes, elevated lipids, moderate LVH, normal ejection fraction, history of acute hypoxic respiratory failure, history of acute kidney injury, history of obesity, history of DVT, history of [place] filter placement, history of long-term anticoagulation, depressive disorder, PTSD, GERD, peptic ulcer disease, history of asthma, moderate DJD, skin graft procedure for prior history of parada, history of gastric bypass surgery, and MRSA. She has been having chest pains mostly located over the left precordium. This has been worse for the past 2 days and she seemed to think it may be going on for the past 3 to 4 days at the most. It radiates to the left neck and left arm and it is intermittent not precipitated by any physical exertion. Usually, she notices it when she sits down. There is some associated nausea, sweating, and shortness of breath as well as lightheadedness. She has vomited once today. She denies any palpitations. She does exercise by walking 4 miles a day usually and she did that yesterday even though she has been having these pains for the past 4 days. She is in functional class II with no paroxysmal nocturnal dyspnea or orthopnea. She is currently having some chest pain. Her EKG however does not show any acute changes. She has noticed some ankle swelling for the past 4 days. She denies any palpitations or syncope. The patient has history of hypertension, type 2 diabetes, and elevated cholesterol. She never smoked. She has no history of congestive heart failure, AFib, rheumatic fever, heart murmur, and KS so far. MEDICATIONS: Her current list of medications are: 1. Losartan 100 mg a day. 2. Morphine 15 mg every 6 hours p.r.n. 3. Nitroglycerin as needed. 4. Potassium chloride 20 mEq a day. 5. Promethazine 25 mg every 4 hours p.r.n. 6. Demadex 20 mg a day. PATIENT'S NAME: [facility] AGE: 62 Y [address] ROOM: [address] [address] [facility] ADMIT DATE: 04/22/2017 History & Physical DISCHARGE DATE: FAMILY PHYSICIAN: PHYSICIAN, UNKNOWN ATTENDING PHYSICIAN: Melissa Roberts 7. Bactroban ointment. 8. Insulin. 9. Vitamin D3 5000 units a day. 10. Trazodone 100 mg at bedtime. 11. Atorvastatin 10 mg at bedtime. 12. Hydralazine 50 mg b.i.d. 13. Oxygen 2 L at night. 14. Albuterol nebulizer. 15. Warfarin 4 mg a day. 16. Aspirin 81 mg a day. 17. Carvedilol 12.5 mg b.i.d. 18. Famotidine 20 b.i.d. 19. Insulin aspart 100 units, 5 units before meals and sliding scale. 20. Risperdal 1 mg twice a day. 21. Wellbutrin 150 mg 1 tablet in the morning. 22. Zanaflex 4 mg b.i.d. p.r.n. ALLERGIES: IVP DYE, PENICILLIN, SULFONAMIDES, INFLUENZA VACCINE, SEROTONIN ANTAGONIST, ZOFRAN, AND OPIOID INCLUDING MEPERIDINE. PAST MEDICAL HISTORY: 1. History of DVTs. 2. History of C. difficile colitis. 3. Psychiatric comorbidities and obesity. 4. Hysterectomy. 5. Cholecystectomy. 6. Right shoulder replacement. 7. Skin grafts for third-degree parada as a child. 8. Hidradenitis suppurativa. 9. Tonsillectomy. 10. Appendectomy. 11. Left elbow replacement. 12. Marisol fundoplication. 13. [place] filter placement. 14. Thrombectomy for leg clots. 15. Nephrolithiasis. 16. Depression. 17. Posttraumatic stress syndrome. 18. History of asthma. 19. Osteoporosis. 20. GERD. 21. Hysterectomy. 22. Appendectomy and tonsillectomy. PATIENT'S NAME: [facility] AGE: 62 Y [address] ROOM: [address] [address] [facility] ADMIT DATE: 04/22/2017 History & Physical DISCHARGE DATE: FAMILY PHYSICIAN: PHYSICIAN, UNKNOWN ATTENDING PHYSICIAN: Mleissa Roberts SOCIAL HISTORY: The patient lives with a roommate. She denies abusing alcohol or recreational drugs. Her appetite and weight are stable. Sleep is poor. FAMILY HISTORY: No premature coronary artery disease. REVIEW OF SYSTEMS: Difficulty with balance due to vertigo. PHYSICAL EXAMINATION: VITAL SIGNS: On examination, her blood pressure today is 148/76, heart rate is 74, respiration is 16, and weight is 250.8 pounds. HEENT: Normal. NECK: Supple with no JVD, thyromegaly, lymphadenopathy, or carotid bruit. PMI is not well-located. First and second heart sounds are regular. There are no added sounds or murmurs. CHEST: Clear. She does have chest wall tenderness over the left upper chest. Breath sounds are normal. ABDOMEN: Obese, soft. Bowel sounds are normally present. EXTREMITIES: Reveal 2+ edema. CENTRAL NERVOUS SYSTEM: Intact. ASSESSMENT: A 62-year-old female patient with a history of coronary artery disease, status post bypass grafting earlier this year presenting with more chest pains with some chest wall tenderness as well. She is not complaining of chest pain when she exercises and she exercises up to 4 miles a day. Currently, the only positive findings are chest wall tenderness and 2+ edema. RECOMMENDATIONS: We will admit her as she is having pain now and rule her out for KS and do a stress test in the morning. Further management will depend on her initial evaluation. MD ZACH ALEJANDRO/jonah /[id number] D: [id number] T: [id number] HISTORY & PHYSICAL
--- NOTE | ~2017-04-22 | ECHO ---
Transthoracic Echocardiography Report (TTE) Demographics Patient Name FRANCISCO JAVIER BUTLER Date of Study 04/22/2017 Patient Number [id number] Visit Number [id number] Date of 1955 Room Number G6340 Gender Female Number Age 62 year(s) Referring Venipuncturist Jesus RVT, RDCS Physician Aundrea Physician Interpreting Alejandra Torres MD Heat Seal Operator Physician Supervising Ordering Alejandra Torres MD, MD/MLP Physician Nurse Stress Level Vial Setter Conclusions Summary The estimated left ventricular ejection fraction is 55-60%.Moderate concentric left ventricular hypertrophy.Normal internal dimension.WMAs are difficult to comment on. Mildly reduced right ventricular function. Port seen in right atrium. Trivial MR and TR. Mild aortic sclerosis. TDS. Compared to study dated 02/09/2017 no significant changes seen. Procedure Type of Study TTE procedure:2D Echocardiogram, M-Mode, Doppler , Color Doppler. Procedure Date Date: 04/22/2017 Start: 11:34 AM Study Location: Inpatient Portable Technical Quality: Adequate visualization Indications:Chest pain. Appropriate Use Criteria: 9 Patient Status: Routine HR: 67 bpm BP: 171/84 mmHg Allergies - Other:(iodinated contrast,PCN, sulfa, flu caccinem serotonin 5HT3, zofran, opiods, demerol, iodine, lopanoicarid, prochlorperodine, conddine, propoxyphene, acetominophen, lactose, tramadol,mehylphenidate, methadone, metoclopramide, ondansetron, pneumococcal vaccine, tomato , sulfa, opiods-meperidene and related prochlorperazine, codeine, meperide, hydromorphone). M-Mode/2D Measurements LV Diastolic Dimension: 3.49 cm LV Systolic Dimension: 2.47 cm LV Septum Diastolic: 1.66 cm LV PW Diastolic: 1.34 cm AO Root Dimension: 2.1 cm Cardiac Output: 3.63 l/min AV Cusp Separation: 1.5 cm RV Diastolic Dimension: 2.21 cm LA volume: 30 ml LVOT: 1.9 cm RV Base: 2.39 cm LVOT VTI: 19.1 cm RV Mid: 2.25 cm LV Stroke volume: 54.13 ml TAPSE: 1.56 cm TDI-S': 8.12 cm/s Doppler Measurements AV Peak Velocity: 1.48 m/s MV Peak E-Wave: 0.78 m/s AV Peak Gradient: 8.76 mmHg MV Peak A-Wave: 0.83 m/s AV Mean Gradient: 6 mmHg MV E/A Ratio: 0.93 LVOT Peak Velocity: 0.9 m/s MV P1/2t: 79 msec TR Gradient:11.29 mmHg PV Peak Velocity: 1.02 m/s Estimated RAP:7 mmHg PV Peak Gradient: 4.16 mmHg Estimated RVSP: 18 mmHg Estimated PASP: 18.29 mmHg E' Septal Velocity: 0.05 m/s A' Septal Velocity: 0.09 m/s E' Lateral Velocity: 0.09 m/s A' Lateral Velocity: 0.08 m/s Findings Left Ventricle Moderate concentric left ventricular hypertrophy with normal internal dimension and EF.WMAs are difficult to comment on. Right Ventricle Mildly reduced right ventricular function. Left Atrium Normal left atrial size. Right Atrium Normal right atrial size. Port seen in right atrium. Mitral Valve Trivial mitral regurgitation by color Doppler. Aortic Valve The aortic valve is mildly sclerotic. Tricuspid Valve Trivial tricuspid regurgitation by color Doppler. Pulmonic Valve Normal pulmonic valve structure and function. Pericardial Effusion No evidence of pericardial effusion. Miscellaneous Visualized portions of the aortic root and ascending aorta appear normal in size. Pleural Effusion No evidence of pleural effusion. Contractility Score LV regional wall motion:(0-Non visualized 1-Normal 2-Hypokinesis 3-Akinesis 4-Dyskinesis 5-Aneurysm) Signature dtt: Melissa Roberts dtd: 04/22/17 1134 Physician Self Edit
--- NOTE | ~2017-04-22 | ESTC ---
Cardiac Perfusion Imaging Demographics Patient Name LUKE Chavez Gender Female Patient Number [id number] Race Black Visit Number [id number] [place] [id number] Room Number G6340 Accession Number [id number] Height 61 inches Date of 1955 Weight 251 pounds Interpreting Aljeandra Torres Date of study 04/23/2017 Physician Supervising /DAKOTAH Torres NM Technologist Jessee Koehler MD Ordering Physician Alejandra Torres Stress MD forensic science technician Stress ECG Reading Alejandra Torres Nurse Michelle Chavez Physician RN, RT Enzo Ken RN Medications Reviewed with Patient prior to Procedure. Procedure Procedure Type: Nuclear Stress Test:Pharmacological, Lexiscan, Cardiolite Stress Test Procedure Start time: 04/23/2017 10:30 Indications: Chest pain. Risk Factors The patient risk factors include:prior CABG on 10/29/2016;obesity, cerebrovascular disease, physical activity, hypercholesterolemia, hypertension, insulin treated diabetes mellitus, chronic lung disease, dyslipidemia and prior heart failure . Conclusions Summary Lexiscan cardiolite with no EKG changes of ischemia. Basal lateral small severe fixed defect. LVEF:71% Normal WM. No TID or LV dilatation. Stress Protocols Resting ECG RSR Pre-stress physical exam: Un changed. Predicted HR: 159 bpm ECG Findings No ECG changes suggestive of ischemia. Arrhythmias No rhythm abnormality. Symptoms Nausea and vomiting. Palpitation. Light headedness. Stress Interpretation Patient developed nausea and vomiting. Blood pressure dropped to 78/41. Dr Beatty was notified. Continued to monitor blood pressures for 20 minutes. A fluid bolus was given to patient. 2mg IVP Zofran was given. Lexiscan cardiolite normal hemodynamic response. Nausea,vomiting,light headedness and palpitation. No EKG changes of ischemia. No arruthmias. Imaging Results High risk findings Summed scores - Summed stress score: 13 - Summed rest score: 17 - Summed difference score: -4 Stress ejection Ejection fraction:71 % EDV :126 ml ESV :37 ml Stroke volume :89 ml LV mass :143 gr LV size:Normal Normal LV function Imaging Protocols Rest Stress Isotope:Tc99m Sestamibi IV Isotope: Tc99m Sestamibi IV Isotope dose:15.2 mCi Isotope dose:46.3 mCi Date:04/23/2017 08:39 Date:04/23/2017 11:00 Technique: SPECT Technique: Gated Supine SPECT Supine IV remains in place after procedure. Scan Time:45-60 minutes post Scan Time:45-60 minutes post injection injection Procedure Medications - Regadenoson (Lexiscan) 0.4 mg IV over 10-15 sec. I.V. 0.4 mg. - Zofran I.V. 2 mg. - Normal saline I.V. 250 ml. Medications administered per verbal order and read back to physician prior to administration. Medical History Admission Data Admission date: 04/22/2017 Admission Time: 10:22 Hospital Status: Inpatient. Signatures dtt: Melissa Roberts dtd: 04/23/17 1030 Physician Self Edit
[~2017-04-22 10:00] MED LIST changes: +COZAAR100 MG PO; +NORCO 10-325 T1 EACH PO; +PROVENTIL OR V6.7 GM INH; +VITAMIN D5000 UNI1 PO
--- NOTE | 2017-04-22 11:03 | NUR ---
Pt is 62 y/o female admit for chest pain for . Has several allergies-see chart. Came over from 's office per clinic nurse. Pt alert and oriented x3. Hx CHF,DVT,asthma,SOB,CABG,temi filter,htn,CAD, bronchitis,lupus,DM,gerd,O2 at HS,kidney stones,renal failure with dialysis in November 2016,depression,suicide,PTSD. Resides at home in her own apartment in [place]. States she's had chest pain off and on for past 2 days. Used Nitro at home and had some relief but pain kept coming back.
[2017-04-22 11:47] LABS: BASOPHIL # 0.1 K/uL (0.0-0.2); BASOPHIL % 0.8 %; EOSINOPHIL # 0.2 K/uL (0.0-0.5); HEMOGLOBIN 10.7 g/dL (10.0-15.0); IMMATURE GRANULOCYTE % 0.3 %; LYMPHOCYTE # 1.9 K/uL (0.8-4.0); LYMPHOCYTE % 31.1 %; MCH 23.6 pg (27.0-34.0); MCHC 30.6 gm/dL (32.0-36.5); MCV 77.1 fl (83.0-98.0); MONOCYTE # 0.7 K/uL (0.0-1.0); MONOCYTE % 10.7 %; MPV 9.8 fl (9.4-12.4); NEUTROPHIL # (ANC) 3.3 K/uL (1.8-7.8); NEUTROPHIL % 54.1 %; NRBC % 0 /100WBC (0-0.00); PLATELET COUNT 263 K/uL (150-450); RBC 4.54 M/uL (3.50-5.50); RDW-CV 19.9 % (11.9-14.6); WBC 6.1 K/uL (4.0-11.0)
[2017-04-22 11:54] LABS: PTT 36 SECONDS (25-32)
[2017-04-22 11:57] LABS: PROTIME 17.9 SECONDS (9.8-11.4)
[2017-04-22 12:04] LABS: ALBUMIN 3.3 gm/dL (3.5-5.0); ALK PHOS 71 IU/L (33-138); ALT 70 IU/L (12-78); ANION GAP 10.8 (10.0-19.0); AST 70 IU/L (10-40); BLOOD UREA NITROGEN 18 mg/dL (6-24); CALCIUM 8.9 mg/dL (8.5-10.5); CHLORIDE 102 mMol/L (96-110); CO2 28 mMol/L (22-32); CPK 135 IU/L (21-215); CREATININE 1.1 mg/dL (0.5-1.1); MAGNESIUM 2.1 mg/dL (1.8-2.6); POTASSIUM 3.8 mMol/L (3.7-5.1); SODIUM 137 mMol/L (135-145); TOTAL PROTEIN 8.1 g/dL (6.0-8.4)
[2017-04-22 12:11] LABS: TOTAL BILIRUBIN 0.2 mg/dL (0.0-1.5)
[2017-04-22 13:49] LABS: BILIRUBIN URINE NEGATIVE (NEGATIVE); BLOOD URINE NEGATIVE /UL (NEGATIVE); COLOR URINE COLORLESS (YELLOW); GLUCOSE URINE NEGATIVE (NEGATIVE); KETONE URINE NEGATIVE (NEGATIVE); LEUKOCYTES URINE NEGATIVE /UL (NEGATIVE); NITRITE URINE NEGATIVE (NEGATIVE); PROTEIN URINE NEGATIVE (NEGATIVE); SPEC GRAVITY URINE 1.005 (1.003-1.035); TURBIDITY URINE CLEAR (CLEAR); UROBILINOGEN URINE NORMAL (NORMAL)
[2017-04-22 17:01] LABS: CPK 121 IU/L (21-215)
--- NOTE | 2017-04-22 18:34 | NUR ---
Significant Event: Pt had echo done. Nitro up to 20mcg today for sbp and pain with no relief. MS last at 1655 which helps. Pt standby to bathroom, voids well. Urine sent for ua. KPad for left chest/back pain. Port accessed ok. Heparin at 1000units/hr, next ptthp at 0030. Enzymes neg so far. Follow up:
[2017-04-23 01:35] LABS: CPK 104 IU/L (21-215)
--- NOTE | 2017-04-23 04:29 | NUR ---
Pt a/o x4. sba. vss on 2l, afebrile. ACHS checks. morphine 2mg given 2x for "chest pain" /10 with adequate relief. pt with kpad to l upper chest/ribs for pain management. all cardiac enzymes negative so far. pt with heparin running into her port at 1000units/hr. next ptthp at 0645. zofran given x1 with noted relief. Plan: NPO for tania
[2017-04-23 05:03] LABS: CPK 121 IU/L (21-215)
[2017-04-23 07:22] LABS: INR - (THERAPEUTIC) 1.88 (0.92-1.07); PROTIME 19.9 SECONDS (9.8-11.4)
--- NOTE | 2017-04-23 17:22 | NUR ---
Significant Event: A/O x3, cooperative with cares. VSS, SBPs 120-170s, HRs 60s, oxygen at 2 liters. C/O pain to L) upper chest; morphine given x2 et kpad to site; relief noted. Lexiscan today; patient had a reaction while in procedure became hypotensive with SBPs in the 70s, nauseated et vomitting. Heparin gtt continues at 1000 unit/hr; next ptthp at 1930. Nitro gtt at 5 mcg; titrate to keep SBPs <130. Echo shows an EF of 55-60%. Up with assist of 1 to bathroom et chair. Follow up: plan for heart cath tomorrow afternoon; consents not signed; prep sites.
--- NOTE | 2017-04-24 04:45 | NUR ---
Significant Event: Pt A&Ox3. HR, temp, resp, O2 sats remain stable. BP's have been all over the place d/t nitro drip. BP's stablized at 15mcg/hr. BP's to remain <130. Accuchecks ACHS, mild scale. Had c/o chest pain, gave Morphine x2 overnight with relief. No c/o nausea/vomiting. Gave 1st and 2nd dose of prednisone with benadryl overnight. Up SBA. Port to Rt chest. Heparin remains on 1000u/hr and NS @ TKO. Follow up: To have breakfast in AM followed by heart cath later. Consult hospitalist for DM management. Possibly ask MD to order daily PTT draws?
--- NOTE | 2017-04-24 14:38 | NUR ---
Introduced self and CM role to Shena. She has a friend at bedside with her that she refers to as her "sister" who I also introduce myself to as well. I am familiar with Shena from previous admissions to [facility]. Shena is living in [place], [place] and plans to return there as soon as she is medically cleared to do so. She manages her own medications at home and plans to continue to do so when she is dismissed. She states that she has no ride for tomorrow so she will need to be set up with [employer]. I let her know that I would take care of that for her. SHe was fine with this. She has the number to call [employer] herself if needed. She denies any questions, needs or concerns about dismissing to home. I phoned over to [employer], talked with Kusum. Kusum tells me that they did line up transportation through [facility] [employer], , confirmation #[id number]. [employer] will be here between [phone] tomorrow to pick Shena up and take her back home. I shared this with Shena and she is in agreement with this plan. Also updated MIGEL Fairbanks as well. No other questions, needs or concerns. CM to continue to follow and assist. Plan home.
--- NOTE | 2017-04-24 17:24 | NUR ---
Significant Event: A/O x3, cooperative with cares. VSS, SBPs 130-150s, HRs 70-80s, oxygen at 2 liters. C/O pain to L) chest/breast area; morphine given x3, last at 1647, relief noted. Heart cath today to R) groin groin, no intervention; perclose to site, dressing C/D/I. Bedrest up at 1930 et ambulate at 2030. Up with assist of 1 to bathroom et chair prior to heart cath. Follow up: ? d/c tomorrow
[2017-04-25 04:51] LABS: ALBUMIN 2.9 gm/dL (3.5-5.0); ANION GAP 12.4 (10.0-19.0); CALCIUM 9.5 mg/dL (8.5-10.5); CREATININE 1.4 mg/dL (0.5-1.1); PHOSPHORUS 2.9 mg/dL (2.5-4.9); POTASSIUM 4.4 mMol/L (3.7-5.1)
[2017-04-25 04:55] LABS: BASOPHIL % 0.1 %; HEMATOCRIT 28.9 % (33.0-46.0); HEMOGLOBIN 8.9 g/dL (10.0-15.0); IMMATURE GRANULOCYTE # 0.1 K/uL (0.0-0.3); IMMATURE GRANULOCYTE % 0.6 %; LYMPHOCYTE # 1.1 K/uL (0.8-4.0); LYMPHOCYTE % 11.4 %; MCH 24.2 pg (27.0-34.0); MCHC 30.8 gm/dL (32.0-36.5); MCV 78.5 fl (83.0-98.0); MONOCYTE # 0.9 K/uL (0.0-1.0); MONOCYTE % 9.2 %; NEUTROPHIL # (ANC) 7.9 K/uL (1.8-7.8); NEUTROPHIL % 78.7 %; NRBC % 0 /100WBC (0-0.00); PLATELET COUNT 230 K/uL (150-450); RBC 3.68 M/uL (3.50-5.50); RDW-CV 19.5 % (11.9-14.6)
--- NOTE | 2017-04-25 04:57 | NUR ---
Significant Event: Pt A&Ox3. VS stable, remains on 2L. Pain continues to stay constant with PRN morphine given x3 overnight. Port to R chest, SL. Ambulate x1 assist w/gb. Went to cardiovascular lab director yesterday, R groin, dressing C/D/I. Had reaction to Lexiscan with contrast. Gave prednisone prior to cath, BS have been elevated. Follow up: Home today. Needs to see Yethaia before [address]. Dr. Parish did all of the home medications already.
[2017-04-25 05:02] LABS: INR - (THERAPEUTIC) 1.4 (0.92-1.07); PROTIME 14.7 SECONDS (9.8-11.4)
[2017-04-25 18:20] LABS: CPK 85 IU/L (21-215)
--- NOTE | 2017-04-25 18:50 | NUR ---
PATIENT UP TO CHAIR W/ SBA. VSS. 500 ML NS FLUID BOLUS FOR INCREASED CREATININE. CONTINUED TO HAVE CHEST PAIN. DR ALFARO AND DR LUIS NOTIFIED OF THIS, MEDICATIONS ORDERED. CHEST PAIN NOT IMPROVED PER PATIENT, DR ALFARO NOTIFIED. IV MORPHINE GIVEN WITH PARTIAL RELIEF. ENZYMES NEG.
[2017-04-25 22:24] LABS: CPK 77 IU/L (21-215)
[2017-04-26 04:55] LABS: ANION GAP 10.4 (10.0-19.0); BASOPHIL % 0.1 %; CALCIUM 9.6 mg/dL (8.5-10.5); CREATININE 1.2 mg/dL (0.5-1.1); HEMATOCRIT 28.6 % (33.0-46.0); HEMOGLOBIN 8.9 g/dL (10.0-15.0); IMMATURE GRANULOCYTE # 0.1 K/uL (0.0-0.3); IMMATURE GRANULOCYTE % 1.3 %; LYMPHOCYTE # 1.2 K/uL (0.8-4.0); LYMPHOCYTE % 11.2 %; MCH 24.1 pg (27.0-34.0); MCHC 31.1 gm/dL (32.0-36.5); MCV 77.5 fl (83.0-98.0); MONOCYTE # 0.8 K/uL (0.0-1.0); MONOCYTE % 7.6 %; MPV 10.1 fl (9.4-12.4); NEUTROPHIL # (ANC) 8.7 K/uL (1.8-7.8); NEUTROPHIL % 79.8 %; NRBC % 0 /100WBC (0-0.00); PLATELET COUNT 235 K/uL (150-450); POTASSIUM 4.4 mMol/L (3.7-5.1); RBC 3.69 M/uL (3.50-5.50); RDW-CV 19.3 % (11.9-14.6); WBC 10.9 K/uL (4.0-11.0)
[2017-04-26 05:01] LABS: CPK 68 IU/L (21-215); INR - (THERAPEUTIC) 1.34 (0.92-1.07); PROTIME 14.1 SECONDS (9.8-11.4)
--- NOTE | 2017-04-26 06:56 | NUR ---
Significant Event: PT started on nitro gtt, currently running at 10mcg/min. Started lovenox 40meq SubQ qD. NPO. Bedrest. V/Q scan today. Follow up: Continue to monitor pain and VS.
--- NOTE | 2017-04-26 18:02 | NUR ---
PATIENT HAD VQ SCAN TODAY. VSS, 2L NC. MORPHINE X3 FOR CHEST PAIN RATED 7/10. UP WITH 1 ASSIST. INCREASED SLIDING SCALE TO MODERATE. LABS ORDERED IN AM.
--- NOTE | 2017-04-27 04:03 | NUR ---
Significant Event: PATIENT IS ALERT AND ORIENTED. UP WITH STAND BY ASSIST. USES CALL LIGHT APPROPRIATELY. VSS. CONTINUES TO COMPLAIN OF CHEST PAIN RATED 7/10. IS AWARE AND PATIENT IS RECEIVING MORPHINE 2 MG IV Q4H PRN FOR THIS PAIN. LAST DOSE AT 0400. STEADY GAIT. POSSIBILITY OF HOME TODAY. ACCU CHECKS ACHS MODERATE SSI. VQ YESTERDAY WAS NEGATIVE. RIGHT PAC. SL. BM 2 DAYS AGO. Follow up:
[2017-04-27 08:58] LABS: ALBUMIN 2.9 gm/dL (3.5-5.0); CALCIUM 9.1 mg/dL (8.5-10.5); CREATININE 1.2 mg/dL (0.5-1.1); PHOSPHORUS 3.4 mg/dL (2.5-4.9)
[2017-04-27 09:03] LABS: BASOPHIL # 0.1 K/uL (0.0-0.2); BASOPHIL % 0.6 %; EOSINOPHIL # 0.2 K/uL (0.0-0.5); EOSINOPHIL % 1.9 %; HEMATOCRIT 31.1 % (33.0-46.0); HEMOGLOBIN 9.4 g/dL (10.0-15.0); IMMATURE GRANULOCYTE % 0.5 %; LYMPHOCYTE # 2.3 K/uL (0.8-4.0); LYMPHOCYTE % 26.2 %; MCH 23.8 pg (27.0-34.0); MCHC 30.2 gm/dL (32.0-36.5); MCV 78.7 fl (83.0-98.0); MONOCYTE # 0.8 K/uL (0.0-1.0); MONOCYTE % 9.8 %; MPV 9.7 fl (9.4-12.4); NEUTROPHIL # (ANC) 5.3 K/uL (1.8-7.8); NRBC % 0 /100WBC (0-0.00); PLATELET COUNT 224 K/uL (150-450); RBC 3.95 M/uL (3.50-5.50); RDW-CV 19.4 % (11.9-14.6); WBC 8.6 K/uL (4.0-11.0)
[2017-04-27 09:07] LABS: INR - (THERAPEUTIC) 1.32 (0.92-1.07); PROTIME 13.9 SECONDS (9.8-11.4)
--- NOTE | 2017-04-27 12:02 | NUR ---
1045 Reviewed Aashish' chart, it appears that she didn't dismiss this weekend like planned. She is having some nausea and dizziness today so they aren't plan on letting her dismiss at this point. There is a possiblity that she will be able to dismiss tomorrow. Therefore I phoned over to [employer], set up transportation for her on 04/28/17, spoke with Enoc. She tells me that [employer] will be picking her up between [phone] phone number for them is [phone]. Transport order number is [id number]. Plan to go up and leave a sticky note on the chart with all the above information on it so MDs and waitstaff captain are aware of this. Will also update Shena at that time as well. CM to continue to follow and assist.
--- NOTE | 2017-04-27 13:21 | NUR ---
A-SCREENED D/T LOS HT: 61 IN. WT: 114.1 KG. IBW: 48 KG. BMI: 48.2 WT IS UP FROM PREVIOUS ADMITS LABS: NA 136, K+ 4.0, GLU 226, BUN 26, LETTER STAMPING MACHINE OPERATOR 1.2, ALB 2.9 MEDS: LEVEMIR, FEOSOL, IMDUR, MORPHINE, LIPITOR, WELLBUTRIN XL, RISPERDAL DIET RX: CONSISTENT CARB. PO INTAKE HAS BEEN 75-100%. EST NUTR NEEDS: 6622-4996 KCALS (15-20 KCALS/KG) 96-121 GM PROTEIN (2.0-2.5 GM/KG IBW) 1 ML FLUID/KCAL D-NOT AT NUTRITION RISK; NO NUTRITION DX IDENTIFIED I-NOT AT NUTRITION RISK M/E-ASSIST NEEDED
--- NOTE | 2017-04-27 16:09 | NUR ---
Significant Event: A/OX3, VSS ON ROOM AIR. MORPHINE GIVEN TODAY X2 LAST @ 1344 FOR COMPLAINTS OF PAIN. PT. GETS UP SBA IN ROOM. SHOWERED TODAY. SLIV'S TO RIGHT CHEST PORT & HAND. PT. COMPLAINING OF DIZZINESS AND FEELING LIKE ROOM WAS SPINNING EARLIER IN THIS AM, SBP DROPPED TO 80'S, THEN 1/2 HOUR LATER CAME BACK UP TO 100'S. WALKED IN HALLS X1. FEELING BETTER THIS AFTERNOON. STARTED ON MECLIZINE TODAY. [facility] WILL BE HERE TOMORROW AROUND [phone] TO TAKE HOME. DISMISSAL TO HOME IN AM. SLEPT ON/OFF THROUGHOUT SHIFT. Follow up: CONTINUE WITH POC.
[2017-04-28 03:55] LABS: INR - (THERAPEUTIC) 1.33 (0.92-1.07)
--- NOTE | 2017-04-28 04:09 | NUR ---
Significant events: Pt A/Ox3. VSS. On RA-2L/NC, O2 for comfort more than need. Up SBA. Morphine x1. ACHS damion bruno at HS 346. Pt slept well this shift. Possible home today.
[2017-04-28] MEDS ORDERED: FEOSOL325 MG PO (12:21)
[2017-04-28] MEDS ORDERED: IMDUR60 MG PO (12:26)
[2017-04-28] MEDS ORDERED: ANTIVERT **IA12.5 MG PO (12:30)
[2017-04-28] MEDS ORDERED: CO Q-10200 MG PO (12:46)
--- NOTE | 2017-04-28 15:30 | NUR ---
PATIENT GIVEN WRITTEN DISMISSAL INSTRUCTIONS INCLUDING NEW HOME MEDICATION LIST WITH INFORMATION ON NEW MEDS, PRESCRIPTIONS, FOLLOW-UP APPOINTMENTS, DIET AND ACTIVITY RESTRICTIONS. PATIENT STATES UNDERSTANDING OF INFORMATION DISCUSSED WITH RN, HOWEVER PASSIVE WITH INSTRUCTIONS. PORT DE-ACCESSED WITH HEPARIN, BAND-AID INTACT. PIV TO L) HAND DC'D WITH GAUZE AND COBAN APPLIED. TELEMETRY DC'D AND PATIENT DRESSED IN OWN CLOTHING. TAKEN TO FRONT OF [facility] VIA WHEELCHAIR ACCOMPANIED BY RN AND BELONGINGS. [employer] TAKING PATIENT HOME.
== END 2017-04-28 15:25 | disposition disaster alternative care site (69) | DRG 286 ==
LOC: GPCU 10:22
PROVIDERS: Family Medicine; Internal Medicine Interventional Cardiology; ADMIT Internal Medicine Interventional Cardiology
PROC: B211YZZ Fluoroscopy of Multiple Coronary Arteries using Other Contrast (ICD-10-PCS; principal; 2017-04-24)
PROC: 4A023N7 Measurement of Cardiac Sampling and Pressure, Left Heart, Percutaneous Approach (ICD-10-PCS; principal; 2017-04-24)
DX: I25.790 Atherosclerosis of other coronary artery bypass graft(s) with unstable angina pectoris (principal); J96.21 Acute and chronic respiratory failure with hypoxia; N17.9 Acute kidney failure, unspecified; Z68.42 Body mass index [BMI] 45.0-49.9, adult; I25.82 Chronic total occlusion of coronary artery; E66.01 Morbid (severe) obesity due to excess calories; Z95.1 Presence of aortocoronary bypass graft; E11.9 Type 2 diabetes mellitus without complications; K21.9 Gastro-esophageal reflux disease without esophagitis; D64.9 Anemia, unspecified; J45.909 Unspecified asthma, uncomplicated; Z86.718 Personal history of other venous thrombosis and embolism; Z79.01 Long term (current) use of anticoagulants; F32.9 Major depressive disorder, single episode, unspecified; F43.10 Post-traumatic stress disorder, unspecified; Z87.11 Personal history of peptic ulcer disease; Z98.84 Bariatric surgery status; Z96.611 Presence of right artificial shoulder joint; L73.2 Hidradenitis suppurativa; Z96.622 Presence of left artificial elbow joint; M81.0 Age-related osteoporosis without current pathological fracture; Z87.891 Personal history of nicotine dependence; I48.0 Paroxysmal atrial fibrillation; I12.9 Hypertensive chronic kidney disease with stage 1 through stage 4 chronic kidney disease, or unspecified chronic kidney disease; N18.2 Chronic kidney disease, stage 2 (mild)
CPT/HCPCS: A9500; A9539; A9540; C1760; C1769; C1887; G0378; J1200; J1642; J1644; J1650; J2250; J2270; J2405; J2550; J2785; J2930; J3010; J7030; J7050

== ENCOUNTER 2017-06-03 11:47 | Inpatient (IN) | payer MEDICARE, MEDICAID ==
[~2017-06-03] VITALS: Ht 154.9 cm; Wt 111.9 kg
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
--- NOTE | ~2017-06-03 | DS ---
PATIENT'S NAME: FRANCISCO JAVIER BUTLER [facility] AGE: 62 Y [address] ROOM: [place] [address] LOCATION: GPCU ADMIT DATE: 06/03/2017 Discharge Summary DISCHARGE DATE: 06/04/2017 FAMILY PHYSICIAN: PHYSICIAN, NO ATTENDING PHYSICIAN: Griffin Doe PRINCIPAL DIAGNOSES: 1. Hypokalemia. 2. Atypical chest pain. 3. Type 2 diabetes. 4. Essential hypertension. 5. Coronary artery disease, status post CABG. BRIEF HOSPITAL COURSE: This is a 62-year-old female with history of coronary artery disease, who presents with atypical chest pain, admitted for chest pain rule out. Upon initial workup, the patient was noted to have potassium of 2.7 as well and was admitted for IV replacement. The patient's potassium today is 3.6 and is currently chest pain free. The patient's EKG was nondiagnostic as well as troponins trended x4 were all negative. Noting her recent cardiac cath and atypical presentation, the patient was essentially ruled out for ACS in the setting and symptoms she felt were perhaps musculoskeletal and something from low potassium. I have noted that under her medications list, she was on 2 diuretics, torsemide and chlorthalidone. At this point, noting that her blood pressure is on soft side, I will discontinue chlorthalidone. The patient will follow up with her primary care physician early next week and will have a repeat renal panel done at that time to check up on her potassium level. PHYSICAL EXAMINATION: GENERAL: The patient is awake, alert, and oriented x3, in no acute distress. CHEST: Clear to auscultation bilaterally. HEART: S1 and S2, regular rate and rhythm. ABDOMEN: Soft, nontender, nondistended. EXTREMITIES: Trace edema. DISPOSITION: Home. FOLLOWUP: With PCP in 1 week. MEDICATIONS: Per MAR. Less than 30 minutes were spent in discharge planning and facilitating. PATIENT'S NAME: FRANCISCO JAVIER BUTLER [facility] AGE: 62 Y [address] ROOM: [place] [address] LOCATION: GPCU ADMIT DATE: 06/03/2017 Discharge Summary DISCHARGE DATE: 06/04/2017 FAMILY PHYSICIAN: PHYSICIAN, NO ATTENDING PHYSICIAN: Griffin Doe BARKOT MD HAILE GREEN/jonah /[id number] d: 06/05/17 0250 t: 06/07/17 1605, DISCHARGE SUMMARY
--- NOTE | ~2017-06-03 | HP ---
[facility] 62 [facility] [address] ROOM: [place] [id number] LOCATION: GPCU ADMIT DATE: 06/03/2017 History & Physical DISCHARGE DATE: FAMILY PHYSICIAN: PHYSICIAN, NO ATTENDING PHYSICIAN: ANGELO TRIPP DATE OF SERVICE: CHIEF COMPLAINT: Chest pain. HISTORY OF PRESENT ILLNESS: This is a 62-year-old female with past medical history of hypertension, diabetes, asthma, coronary artery disease status post CABG, who presents today with chest pain. She states that her chest pain started last night on the left side of her chest radiating down her left arm. The pain is stabbing in nature. Rates it an 8/10. She has a sensation of pins and needles down her left arm and her left arm does feel weak. She has complaints of feeling like her heart is fluttering. She has had some dyspnea with exertion as well as lightheadedness. She denies any fevers, cough, or wheezing. She states that she has vomited twice today. Denies any diarrhea. She noted that her INR yesterday was 1.3, at which time she was instructed to increase her Coumadin. She states that she has been compliant with her medications. PAST MEDICAL HISTORY: 1. MRSA. 2. History of C. diff. 3. Diabetes mellitus type 2. 4. Hypertension. 5. DVT/PE three years ago, on Coumadin. 6. Saline filter. 7. Morbid obesity. 8. GERD. 9. Asthma. 10. Depression. 11. Chronic nocturnal hypoxia, wears 3 L of oxygen when asleep. 12. Edema. 13. Hyperlipidemia. 14. Anemia. SURGICAL HISTORY: 1. Right shoulder replacement. 2. Hysterectomy. 3. Tonsillectomy. 4. Akers with multiple skin grafts. PATIENT'S NAME: [facility] AGE: 62 Y [address] ROOM: [place] [address] LOCATION: GPCU ADMIT DATE: 06/03/2017 History & Physical DISCHARGE DATE: FAMILY PHYSICIAN: PHYSICIAN, NO ATTENDING PHYSICIAN: ANGELO TRIPP 5. CABG, three-vessel, 10/28/2016. FAMILY HISTORY: The patient's family history is unknown as she states she was adopted. SOCIAL HISTORY: The patient is single. She does not have any children. She is currently on disability. She denies any tobacco, drug, or alcohol use. ALLERGIES: CONTRAST DYE, PENICILLIN, SULFA, ZOFRAN, DEMEROL, FLU VACCINE, LISINOPRIL, RESTORIL, COMPAZINE, CODEINE, OXYCODONE, LABETALOL, DOXYCYCLINE, FLAGYL, NORVASC, TRICOR, SYMBICORT, METFORMIN, RITALIN, REGLAN, HUMALOG INSULIN, CYMBALTA, TOMATOES. PLEASE SEE CHART FOR FURTHER ALLERGIES. HOME MEDICATIONS: Currently being reconciled: 1. Albuterol inhaler. 2. Aspirin. 3. Lipitor. 4. Wellbutrin XL. 5. Coreg. 6. Chlorthalidone. 7. Vitamin D3. 8. Pepcid. 9. Feosol. 10. Hydralazine. 11. NovoLog FlexPen. 12. Imdur. 13. Ativan. 14. Cozaar. 15. Antivert. 16. Nitrostat. 17. Potassium chloride. 18. Phenergan. 19. Risperidone. 20. Zanaflex. 21. Demadex. 22. CoQ10. 23. Coumadin. REVIEW OF SYSTEMS: A 13-point review of systems was performed, all were negative except for what was mentioned in the HPI. PATIENT'S NAME: FRANCISCO JAVIER [facility] AGE: 62 Y [address] ROOM: [place] [address] [facility] AD[facility] DATE: 06/03/2017 History & Physical DISCHARGE DATE: FAMILY PHYSICIAN: PHYSICIAN, NO ATTENDING PHYSICIAN: ANGELO TRIPP PHYSICAL EXAMINATION: VITAL SIGNS: Pulse 59, respirations 16, 92% on room air, temperature 96.5, 111.5 kg. GENERAL: Awake, alert, oriented x3, in no acute distress. HEENT: Pupils equal, round, and reactive to light. Head is normocephalic. Oral mucosa is moist. Posterior oropharynx is without erythema or exudate. SKIN: Warm and dry without lesions or rashes. NECK: Supple. RESPIRATIONS: Clear throughout auscultation bilaterally. No labored breathing noted. No wheezing or crackles. CARDIAC: Regular rhythm and rate. No murmurs or extra sounds. ABDOMEN: Bowel sounds are positive, soft, nontender to palpation. No organomegaly noted, obese. MUSCULOSKELETAL: Normal muscle tone throughout. No joint deformities. No chest pain to palpation. EXTREMITIES: Pulses 2+ throughout. Cap refill is less than 3 seconds. No edema. No calf tenderness. NEUROLOGIC: Cranial nerves II through XII grossly intact. Sensation intact to light touch. Strength is 5/5 throughout. DIAGNOSTICS: 1. Hemoglobin 12.5, WBC is 7.8, platelets 234. Sodium 135, potassium 2.7, chloride 96, CO2 of 30, BUN 22, creatinine 1.5, AST 43, ALT 36, Mag 1.8. CPK 415, CK-MB 1.0, troponin less than 0.040. Accu-Chek 246. Lactate 3.0. Procal less than 0.05. BHP 1.1. ProBNP 57. 2. Chest x-ray, stable nonacute chest. IMPRESSION AND PLAN: 1. Chest pain: EKG and troponin are currently negative. There is a low likelihood of ACS in this setting due to her recent catheterization. We will go ahead and admit the patient, trend further cardiac enzymes. Repeat EKG in the morning. Nitroglycerin p.r.n. 2. Hypokalemia. Potassium was found to be 2.7 on admit. Currently, she is getting potassium 40 mEq IV while in the emergency room. We will go ahead and recheck that 1 hour after the infusion with the results to be called to the hospitalist need for further replacement. We will go ahead and repeat labs as well in the morning. 3. History of DVT and PE: She is on warfarin. INR today 1.0. She does have a Saline filter in place. We will continue Coumadin with pharmacy to dose. 4. Chronic nocturnal hypoxic respiratory failure. We will continue oxygen at 3 L when asleep. 5. Diabetes mellitus type 2: Accu-Cheks a.c. and at bedtime. Moderate sliding scale insulin. We will resume home insulin dosing when med reconciliation is available. PATIENT'S NAME: FRANCISCO JAVIER [facility]ER [facility] AGE: 62 Y [address] ROOM: [place] [id number] LOCATION: GPCU ADMIT DATE: 06/03/2017 History & Physical DISCHARGE DATE: FAMILY PHYSICIAN: PHYSICIAN, NO ATTENDING PHYSICIAN: ANGELO TRIPP 6. Essential hypertension: Blood pressure is currently stable. Continue current medications. 7. Asthma: Continue albuterol inhaler as needed. She has no wheezing noted today. 8. Edema: Stable on chlorthalidone. We will continue to monitor. 9. Subtherapeutic INR: Currently INR 1.0. The patient states she has been taking her Coumadin, however, she still has a subtherapeutic INR. We will ask pharmacy to dose Coumadin while she is hospitalized. Goal INR is 2.0-3.0. 10. Chronic kidney disease: Looks as though her creatinine may be ranges from 1.3-1.5. We will go ahead and finish this bag of normal saline and recheck in the morning. 11. History of Clostridium difficile: The patient states that she currently has formed stools, we will monitor. 12. Vitamin D deficiency: Continue home vitamin D replacement. 13. DVT prophylaxis: Continue Coumadin. Thank you for allowing us to participate in the care of this patient as she has been hospitalized at [facility]. BRIANA VELAZQUEZ APRN FOR MD CODIE KC/harperl /[id number] D: [id number] T: [id number] HISTORY & PHYSICAL
[~2017-06-03 11:47] MED LIST changes: +ANTIVERT **IA12.5 MG PO; +CO Q-10200 MG PO; +IMDUR60 MG PO
[2017-06-03 12:28] LABS: BICARBONATE 35.1 mmol/L (18.0-23.0); PCO2 46 mmHg (35-45); PO2 51 mmHg (80-90)
[2017-06-03 12:30] LABS: BASOPHIL % 0.5 %; EOSINOPHIL # 0.2 K/uL (0.0-0.5); EOSINOPHIL % 2.2 %; HEMOGLOBIN 12.5 g/dL (10.0-15.0); IMMATURE GRANULOCYTE % 0.4 %; LYMPHOCYTE % 25.9 %; MCHC 32.9 gm/dL (32.0-36.5); MONOCYTE # 0.7 K/uL (0.0-1.0); MONOCYTE % 9.2 %; MPV 9.9 fl (9.4-12.4); NEUTROPHIL # (ANC) 4.8 K/uL (1.8-7.8); NEUTROPHIL % 61.8 %; NRBC % 0 /100WBC (0-0.00); PLATELET COUNT 234 K/uL (150-450); RBC 4.47 M/uL (3.50-5.50); RDW-CV 20.4 % (11.9-14.6); WBC 7.8 K/uL (4.0-11.0)
[2017-06-03 12:38] LABS: PROTIME 10.5 SECONDS (9.8-11.4); PTT 30 SECONDS (25-32)
[2017-06-03 12:51] LABS: ALBUMIN 3.4 gm/dL (3.5-5.0); ALK PHOS 61 IU/L (33-138); ALT 36 IU/L (12-78); AST 43 IU/L (10-40); BLOOD UREA NITROGEN 22 mg/dL (6-24); CHLORIDE 96 mMol/L (96-110); CO2 30 mMol/L (22-32); CPK 415 IU/L (21-215); CREATININE 1.5 mg/dL (0.5-1.1); MAGNESIUM 1.8 mg/dL (1.8-2.6); SODIUM 135 mMol/L (135-145); TOTAL PROTEIN 7.9 g/dL (6.0-8.4)
[2017-06-03 13:01] LABS: ANION GAP 11.7 (10.0-19.0); POTASSIUM 2.7 mMol/L (3.7-5.1)
[2017-06-03 13:02] LABS: TOTAL BILIRUBIN 0.3 mg/dL (0.0-1.5)
[2017-06-03 15:03] LABS: CPK 385 IU/L (21-215)
--- NOTE | 2017-06-03 17:07 | NUR ---
Pt is 62 y/o female admit for hypokalemia/chest pain for hospitalist. Has many allergies. See chart. Hx CHF,DVT,CABG,htn,green field filter,asthma,SOB,gerd, lupus,depression,hx suicide,renal failure-dialysis. Pt resides at home by herself. Alert and oriented x3. Pt states she called 's office c/o stabbing pain in her chest. They recommended she try Nitro and go to the ED. She states a friend drove her here to the ED.
[2017-06-03 19:49] LABS: CPK 354 IU/L (21-215)
[2017-06-04 05:09] LABS: ANION GAP 10.6 (10.0-19.0); CALCIUM 8.8 mg/dL (8.5-10.5); CREATININE 1.1 mg/dL (0.5-1.1); POTASSIUM 3.6 mMol/L (3.7-5.1)
[2017-06-04 05:12] LABS: BASOPHIL % 0.7 %; EOSINOPHIL # 0.2 K/uL (0.0-0.5); EOSINOPHIL % 3.7 %; HEMATOCRIT 34.3 % (33.0-46.0); HEMOGLOBIN 11.1 g/dL (10.0-15.0); IMMATURE GRANULOCYTE % 0.3 %; LYMPHOCYTE # 1.7 K/uL (0.8-4.0); LYMPHOCYTE % 28.2 %; MCH 27.9 pg (27.0-34.0); MCHC 32.4 gm/dL (32.0-36.5); MCV 86.2 fl (83.0-98.0); MONOCYTE # 0.7 K/uL (0.0-1.0); MONOCYTE % 11.4 %; NEUTROPHIL # (ANC) 3.3 K/uL (1.8-7.8); NEUTROPHIL % 55.7 %; NRBC % 0 /100WBC (0-0.00); PLATELET COUNT 209 K/uL (150-450); RBC 3.98 M/uL (3.50-5.50); RDW-CV 20.6 % (11.9-14.6)
[2017-06-04 05:13] LABS: CPK 270 IU/L (21-215)
[2017-06-04 05:20] LABS: PROTIME 10.5 SECONDS (9.8-11.4)
--- NOTE | 2017-06-04 07:29 | NUR ---
Significant Event: Patient is alert and oriented x 3. VSS on room air. Wears 2L of O2 at night per home dose. Up with stand by assist. Morphine given for pain last at 0301. K+ was 2.9 at 2130, MD called 80 meq IV KCL ordered. Right chest port with 40 meq KCL running at 67.5 ml/hr, to be saline locked after infusion is complete. ACHS accuchecks. Patient is pleasant and cooperative with cares. Follow up:
--- NOTE | 2017-06-04 15:15 | NUR ---
Significant Event: morphine given for pt pain control. Pt amb to bathroom and chair ok. Jamar morales per protocol. PO k given. Dr leo dc Follow up:
--- NOTE | 2017-06-04 16:25 | NUR ---
Introduced self and role of care management to pt. She is hoping to go home today. She lives alone in [place] and is able to take care of herself. She does have a car she drives to appointments and a good friend who is the wireless sales expert helps out if needed. She sets up her own meds and states she is good at taking them. She did tell me she will need a ride home with [employer]. I did set one up for 1600. WIll continue to follow.
--- NOTE | 2017-06-04 18:20 | NUR ---
d-dr leong dc i-nurse did teaching on all meds, appt will be set up when clinic calls pt, port deaccessed no problem with 500units instilled and then removed needle using standard nurse.protocol, pt up to bathroom and chair doing well, r-pt states all understanding p-ta took pt to security patrol driver by wc no problems
== END 2017-06-04 17:00 | disposition disaster alternative care site (69) | DRG 313 ==
LOC: GMED 11:47 → GPCU 15:11
PROVIDERS: Family Medicine; Nurse Practitioner Family; ADMIT Internal Medicine
DX: R07.89 Other chest pain (principal); I25.10 Atherosclerotic heart disease of native coronary artery without angina pectoris; J96.11 Chronic respiratory failure with hypoxia; Z99.81 Dependence on supplemental oxygen; Z68.42 Body mass index [BMI] 45.0-49.9, adult; E11.9 Type 2 diabetes mellitus without complications; E55.9 Vitamin D deficiency, unspecified; I10 Essential (primary) hypertension; D64.9 Anemia, unspecified; E66.1 Drug-induced obesity; E87.6 Hypokalemia; F32.9 Major depressive disorder, single episode, unspecified; J45.909 Unspecified asthma, uncomplicated; Z95.1 Presence of aortocoronary bypass graft; E66.01 Morbid (severe) obesity due to excess calories; Z86.14 Personal history of Methicillin resistant Staphylococcus aureus infection; E78.5 Hyperlipidemia, unspecified; K21.9 Gastro-esophageal reflux disease without esophagitis; Z86.718 Personal history of other venous thrombosis and embolism; Z79.01 Long term (current) use of anticoagulants
CPT/HCPCS: J1642; J3480; J7030; J7050